=== PATIENT | female | born 1945 | race Caucasian/White ===

== ENCOUNTER 2024-06-30 14:17 | Outpatient (AMB) | payer OTHER, SELFPAY ==
--- NOTE | 2024-06-30 14:20 | A.OFFVIS_ITS ---
Vital Signs 06/30/24 14:24 Height 5 ft 5.5 in Weight 187 lb BMI 30.6 BP 168/75 H Blood Pressure Location Lt brachial Position Sitting Pulse 94 Pulse Source Pulse Oximeter Pulse Oximetry (%) 98 Oxygen Delivery Method Room Air Intake Visit Reasons: Spinal Stenosis Lumbar Region Intake Note: Pain today 12/14 Refractory Worker Required: No Accompanied by: Self / Same As Patient Allergies amoxicillin [AMOXICILLIN] Allergy (Unknown, Verified 06/30/24 14:25) RASH sumatriptan [From IMITREX] Allergy (Unknown, Verified 06/30/24 14:25) TINGLING/NUMBNESS clavulanic acid [From AUGMENTIN] Adverse Reaction (Unknown, Verified 06/30/24 14:25) NAUSEA & VOMITING hydrochlorothiazide [From Maxzide] Adverse Reaction (Unknown, Verified 06/30/24 14:25) NAUSEA & VOMITING sulfamethoxazole [From BACTRIM] Adverse Reaction (Unknown, Verified 06/30/24 14:25) NAUSEA & VOMITING triamterene [From Maxzide] Adverse Reaction (Unknown, Verified 06/30/24 14:25) NAUSEA & VOMITING trimethoprim [From BACTRIM] Adverse Reaction (Unknown, Verified 06/30/24 14:25) NAUSEA & VOMITING ENVIRONMENTAL Allergy (Unknown, Uncoded 01/22/20 16:00) RUNNY NOSE/STUFFINESS OCG DYE Allergy (Unknown, Uncoded 01/22/20 16:00) PASSED OUT HPI Comments Details: Shara is very pleasant 78 years old female who presents in my office by referral of [facility]. She requested 2nd opinion from her physician in [facility] and she came to see me today. She complains mostly on axial lower back pain without radiation into bilateral lower extremities. She reports stiffness of the lower back and she reports alleviation of her pain when she can not walk leaning on the shopping cart. She reports pain getting better when she is sitting or laying down. She is able to sleep normally. She can do activities of daily living. She can take care of herself. But she can not function normally. She is retired individual. She reports that standing and motions aggravate her pain. She denies any help from anything for her pain. In terms of tissue damage he reports her pain as jumping, flushing, shooting, sickening, suffocating, fearful fried full terrifying, punishing, killing, cool called and freezing sensation. She received multiple diagnostic images of her lumbar spine in the past the last MRI dictated as below. She received physical therapy in [facility] numerous times without significant improvement. She tries to remain active she performs walking exercises at home. She lives alone. Her past medical history significant for headaches, hypertension, history of episodic AFib currently only on aspirin 81 mg. She admits diabetes however she states it is diet controlled. She reports GERD and arthritis. Her past surgical history significant for tonsillectomy in 1973, hysterectomy in 1984, bunionectomy hammertoes in 1989, right knee replacement in 2002, left knee replacement in 2002, February of 2026 she received bladder sling surgery, hammertoe surgery in 01/24/2023, [facility] arthroplasty 01/24/2021. [facility] Social History (Updated 06/30/24 @ 14:26 by Asya Castro) Alcohol intake: never Patient Tobacco Use Status: Never used Tobacco Review of Systems Const Reports no additional complaints Eyes Reports no additional complaints ENT Reports Normal hearing present Card Reports as per HPI Resp Reports no additional complaints GI Reports as per HPI Reports no additional complaints Musc Reports as per HPI Neuro Reports no additional complaints, Reports Normal hearing present, Denies Abnormal speech present and Denies Sensory deficit (Neuro) Psych Reports no additional complaints Physical Exam Vital Signs: Last Vital Signs Pulse 94 06/30/24 14:24 BP 168/75 H 06/30/24 14:24 Pulse Ox 98 06/30/24 14:24 Oxygen Delivery Method Room Air 06/30/24 14:24 BMI result Body Mass Index 30.6 Const General: no acute distress Nutritional Appearance: well nourished Orientation/consciousness: patient oriented x3 Limitations: ambulation with cane Eyes General: appearance normal, both eyes and all related structures Pupils: Equal, round and reactive pupils present EOM: EOMs intact bilaterally Neck Neck: Yes full ROM Chest Chest palpation & inspection: normal inspection of the chest Resp Effort & Inspection: normal respiratory effort, able to speak in complete sentences, normal respiratory pattern, no audible wheezes and no cough Cardio Jugular venous distension: no JVD GI Inspection: Yes normal to inspection Back/Spine/Pelvis Other: No tenderness on palpation in paraspinal spinal region of the lumbar spine. Loading test is equivocal bilaterally. Remarkable range of motion with flexing forward. Able to reach the floor with her fingers. Flexing backwards is very difficult and the spine is very stiff on the flexing backwards maneuver. SLR is negative bilaterally. Lassegue test is negative bilaterally. Unable to perform Luiz test because of the stiff static knees. Pelvic compression test and pelvic distraction tests are negative for pain increase in the projection of sacroiliac joint. Able to stand on bilateral tiptoes without difficulty. Able to stand on bilateral heels without difficulty. Able to lift 1st toe in separation from the rest of the toes. Denies pelvic organ dysfunction. Valsalva maneuver is negative. Neuro General: patient oriented x3 and gait normal Cranial nerves: Yes CN's II-XII intact bilaterally, Yes Equal, round and reactive pupils present, Yes Normal hearing present and Yes Ability to bilaterally elevate shoulders present Speech: No Abnormal speech present Gait exam (Neuro): Normal gait present Motor exam (neuro): 5/5 motor strength present throughout Sensory Exam: No Sensory deficit (Neuro) Extrem General: No pedal edema Psych Speech and movement: Normal speech and movement present Affect: normal affect Attitude: cooperative Thought process: Normal thought process present Thought content: Normal thought content present Insight: Good insight present (Psych) Judgement: Good judgement present (Psych) Results Reviewed Results Reviewed: MRI lumbar spine without contrast 01/07/2023. Findings: Alignment and vertebral: Normal alignment no compression fracture. Marrow normal no bone marrow replacing lesion. Discs and endplates: Multilevel mild disc space narrowing. Other findings none findings by level: T12-L1 on bilateral facet arthropathy no significant neural foraminal or spinal canal stenosis. L1-L2: Bilateral facet arthropathy ligamentum flavum hypertrophy no significant neural foraminal or spinal canal stenosis. L2-L3: Diffuse disc bulge. Bilateral facet arthropathy. Marked ligamentum flavum thickening. There is associated [id number] spinal canal stenosis similar to minimally increased since 07/01/2020. Mild bilateral foraminal stenosis similar to prior. L3-L4: Diffuse disc bulge. Bilateral facet arthropathy. Prominent ligamentum flavum thickening similar to prior. Jryi-[id number] spinal canal stenosis similar to prior. No significant foraminal stenosis. L4-5: Diffuse disc bulge. Bilateral facet arthropathy. Prominent ligamentum flavum thickening. Mild spinal canal stenosis, similar to prior. Mild bilateral foraminal stenosis similar to prior. L5-S1 diffuse disc bulge. Bilateral facet arthropathy. Mild bilateral foraminal stenosis, similar to prior. No significant spinal canal stenosis. Impression: Lumbar spine degenerative changes as described. Overall similar to 07/01/2020 with associated [id number] spinal canal stenosis at L2-L3 and L3-L4 and similar degree to prominent ligamentum flavum thickening. No evidence of high-grade foraminal stenosis. Assessment & Plan Assessment & Plan (1) Spinal stenosis of lumbar region: Code(s): M48.061 - Spinal stenosis, lumbar region without neurogenic claudication Category: Medical (2) Chronic pain syndrome: Code(s): G89.4 - Chronic pain syndrome Category: Medical (3) Spondylosis of lumbar region without myelopathy or radiculopathy: Code(s): M47.816 - Spondylosis without myelopathy or radiculopathy, lumbar region Category: Medical Plan This patient reports alleviation of her pain with walking while flexing forward and leaning on the assisting device or shopping cart. However she does not report neurogenic claudication, she reports that she performs walking exercises at home and does not require stopping because of her pain. In [facility] she received epidural steroid injection L3-L4 interlaminar, she received sacroiliac joint innervation injection diagnostic, none of which she claim helps her pain. Today we discussed possibility of treating her condition with diagnostic medial branch block L3, L4, dorsal ramus L5. This could be major pain generators in this patient. The diagnosis for this condition will be spondylosis of lumbar spine without myelopathy or radiculopathy. If this diagnostic injection will result in no pain improvement we will start to discuss neuromodulation. Brochures of spinal cord stimulator Nevro and intrathecal pain pump were given to the patient. The patient also was explained about chronic opioid therapy. She lives alone and it would be hard to assess how she reacts to chronic opioid therapy. I careful trial of buprenorphine or tramadol would be preferable if she decides to go for chronic opioid therapy. Patient Instructions: I here by testify that I spent 48 minutes in conversation with this patient as well as planning her care and organizing this note. Coding Level of Care Code New Pt Level 4 (77385) Diagnoses Spinal stenosis of lumbar region M48.061 Chronic pain syndrome G89.4 Spondylosis of lumbar region without myelopathy or radiculopathy M47.816
[2024-06-30 14:24] VITALS: BP 168/75; PULSE 94; O2SAT 98; BMI 30.6
--- OUTSIDE RECORDS SUMMARY | 2024-06-30 16:26 | XMS_ITS | Patient Health Record ---
[facility] Address [address] [place] [address] Care Team Providers Care Door Person Name Role Phone Brandon POPE, Natividad Primary Care Provider Yohana Barton Unavailable [phone] Bud Helton Unavailable [phone] Jacqueline Voss Unavailable [phone] Allergies Allergen (clinical drug ingredient) Drug/Non Drug Allergy documented on EMR Reaction Allergy Type Onset Date Status amoxicillin Amoxicillin Unknown Drug Allergy Act nata amoxicillin / clavulanate Augmentin sick to stomach Drug Allergy Active sulfamethoxazole / trimethoprim Bactrim stomach upset Drug Allergy Active sumatriptan Imitrex numbness in arm Drug Allergy Active dexamethasone Maxidex sick to stomach Drug Allergy Active cyclosporine Restasis Unknown Drug Allergy Acti ve tramadol Tramadol HCl nausea and vomiting Drug Allergy Active banana allergenic extract Banana (Diagnostic) Unknown Drug Allergy Active codeine Codeine stomach upset Drug Allergy Act nata Iodine fainted Drug Allergy Active Results Component Value Reference Range Notes HEMOGLOBIN A1C (GLYCOHEMOGLO BIN) Reviewed date:04/29/2024 08:56:49 AM Interpretation: Performing Lab: Notes/Report: TOTAL HEMOGLOBIN (HGBA1C) 5.6 Reason For Referral Diagnosis 1 Pain in right toe(s) (M79.674) Diagnosis 2 Pain in left toe(s) (M79.675) Diagnosis 3 Type 2 diabetes shahriar itus with diabetic polyneuropathy (E11.42) Referring Provider First Name Natividad Referring Provider Last Name Brandon [facility] Referred Provider Bud Helton Referred Address [address] [facility],[place], [place],[address],[place] Referred Provider Specialty Podiatry Referral Priority Routine Diagnosis 1 Other hammer toe(s) (acquired), right foot (M20.41) Diagnosis 2 Primary osteoarthrit is, right ankle and foot (M19.071) Diagnosis 3 Idiopathic gout, 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) Diagnosis 4 Type 2 diabetes shahriar itus with diabetic polyneuropathy (E11.42) Diagnosis 5 Hammer toe of left f oot (M20.42) Referring Provider First Name Natividad Referring Provider Last Name Brandon [facility] Ref[facility] Provider Yohana Lane Referred Address [address] [facility],[place], [place],[address],[place] Referred Provider Specialty Podiatry Referral Priority Routine Diagnosis 1 Type 2 diabetes shahriar itus with diabetic polyneuropathy (E11.42) Diagnosis 2 Other hammer toe(s) (acquired), right foot (M20.41) Diagnosis 3 Other hammer toe(s) (acquired), left foot (M20.42) Diagnosis 4 Pain in right toe(s) (M79.674) Diagnosis 5 Pain in left toe(s) (M79.675) Diagnosis 6 Tinea unguium (B35.1 ) Diagnosis 7 Ingrowing nail (L60. 0) Diagnosis 8 Primary osteoarthrit is, right ankle and foot (M19.071) Diagnosis 9 Metatarsalgia, right foot (M77.41) Diagnosis 10 Metatarsalgia, left foot (M77.42) Diagnosis 11 Plantar fascial fibr omatosis (M72.2) Referring Provider First Name Natividad Referring Provider Last Name [facility] Referred Provider Jacqueline Voss Referred Address [address] [facility],[place], [place],[address],[place] Referred Provider Specialty Podiatry Referral Priority Routine Medications Medication SIG (Take, Route, Frequency, Duration) Notes Start Date End Date Status Xyzal Active Extra Depth Orthopedic Shoes (1 Pair) with Customized Heat Molded Multidensity Innersoles (3 Pair) as directed Dx: NIDDM/Polyneuropathy (E11.42), Hammertoe Foot Deformity (M20.41,M20.42), Preulcerative Skin Lesion(s) (L85.1 Active Voltaren 1 % as directed Externally Active Patanol Active VESIcare Not-Taking Calcium 500 MG every other day Orally Active Magnesium Chloride A ctive Custom Orthotics as directed 11/01/2015 Not-Taking Vitamin B Complex Ac tive Betamethasone Dipropionate Not-Taking Protonix 40 MG Orally Activ e Nabumetone Not-Takin g hydrochlorothiazide Active Custom Orthotics as directed A ctive Nikki Allergy Acti ve Extra Depth Diabetic Shoes with 3 Pair Custom heat-molded multi-density innersoles for 1 year Dx: 11/01/2015 Not-Taking Gemtesa 75 MG 1 tablet Orally Once a day for 30 day(s) Active Custom Orthotics as directed N ot-Taking Multivitamins Active Levothroid 100 mg 6x a week Ac tive Custom Orthotics as directed 06/30/2014 Not-Taking Metoprolol Succinate 50mg daily Active Fish Oil Active VESIcare 5 MG Orally Not-Ta dafne Flonase 50 MCG/ACT 1 spray in each nostril Nasally Once a day for 30 day(s) Active Myrbetriq 50 MG Orally Not- Taking Lisinopril 40 MG Orally Act nata Custom Orthotics as directed 06/17/2014 Not-Taking Glucosamine HCl 1500 MG Orally Active Colchicine-Probenecid Not-Taking Docusate Sodium Acti ve Doxycycline Monohydrate 100 MG 1 capsule Orally Twice a day for 5 days 01/31/2023 Not-Taking Doxycycline Hyclate 100 MG 1 capsule Ora lly Once a day for 10 day(s) 01/18/2023 Not-Taking Etodolac 400 MG 3 times day Orally Active Custom Orthotics as directed 08/09/2016 Not-Taking Estradiol Active Keflex 500 MG 1 capsule Orally every 12 hrs for 5 days 06/21/2022 Not-Taking Extra Depth Orthopedic Shoes (1 Pair) with Customized Heat Molded Multidensity Innersoles (3 Pair) as directed Dx: NIDDM/Polyneuropathy (E11.42), Hammertoe Foot Deformity (M20.41,M20.42), Preulcerative Skin Lesion(s) (L85.1 07/20/2021 Not-Taking Diclofenac Not-Takin g Etodolac Not-Taking Aspirin 81 MG Orally Active Atorvastatin Calcium Not-Taking Vitamin C Active Zomig Not-Taking Custom Orthotics as directed 07/20/2021 Active Extra-Depth Diabetic Shoes with 3 Pair Custom heat-molded multi-density innersoles Active Omeprazole Not-Takin g Immunizations Vaccine Route Administration Date Status Commreece nts COVID-19 Pfizer BioNTech Vaccine Unknown 02/13/2022 Administered 1st 06/26/2020 ,02/04/21 2nd 07/16/2020,2021 Influenza Unknown 02/11/2015 Administered Influenza Unknown 02/03/2016 Administered Influenza Unknown 02/05/2017 Administered Influenza Unknown 02/15/2018 Administered Influenza Unknown 02/13/2022 Administered Influenza Unknown 02/07/2023 Administered Pneumococcal Unknown 08/03/2015 Administered Social History Tobacco Use: Social History Observation Description Date Details (start date - stop date) Never Smoker NA - NA Tobacco Use/Smoking Question Answer Notes Are you a: nonsmoker Additional Findings: Tobacco Non-User Current no n-smoker Alcohol Screen Question Answer Notes Did you have a drink containing alcohol in the p ast year? No Points 0 Interpretation Negative Tobacco use other than smoking: Question Answer Notes Are you an other tobacco user? No Problems Problem Type SNOMED Code ICD Code Onset Dates Problem Status W/U Status Risk Notes Problem Acquired hammer toe of right foot (2936653219057732 ) Other hammer toe(s) (acquired), right foot (M20.41) Active confirmed Response to treatment, Improvemen t Problem Acquired hammer toe of left foot (0664009835873767 ) Other hammer toe(s) (acquired), left foot (M20.42) Active confirmed Response to treatment, Improvemen t Problem Localized, primary osteoarthritis of the ankle and/or foot (165850003) Primary osteoarthritis, right ankle and foot (M19.071) Active confirmed Problem Plantar fascial fibromatosis (53919713) Plantar fascial fibromatosis (M72.2) Active confirmed Problem Polyneuropathy due to type 2 diabetes mellitus (167282694) Type 2 diabetes mellitus with diabetic polyneuropathy (E11.42) Active confirmed Problem Localized, primary osteoarthritis of the ankle and/or foot (980933507) Arthritis of joint of lesser toe, right (M19.071) Active confirmed Vital Signs Blood pressure diastolic 72 mm Hg 06/25/2024 Height 5ft 5in in 06/25/2024 Blood pressure systolic 118 mm Hg 06/25/2024 Weight 182 lbs 06/25/2024 BMI 30.28 kg/m2 06/25/2024 Procedures Procedure Date Ordered Date Performed Result Body Sit e 53627-VROVMYM NAIL, 6 OR MORE 03/05/2024 N/A 03778-YZXI SKIN LESIONS, OVER 4 03/05/2024 N/A Encounters Encounter Location Date Provider Diagnosis [address] [address] 07/26/2023 Bud Norris unguium B35.1 ; Type 2 diabetes mellitus with diabetic polyneuropathy E11.42 ; Pain in right toe(s) M79.674 ; Pain in left toe(s) M79.675 ; Other hammer toe(s) (acquired), right foot M20.41 ; Primary osteoarthritis, right ankle and foot M19.071 ; Ingrowing nail L60.0 ; Metatarsalgia, left foot M77.42 ; Metatarsalgia, right foot M77.41 and Plantar fascial fibromatosis M72.[address] [address] 09/17/2023 Bud Helton Tinea unguium B35.1 ; Type 2 diabetes mellitus with diabetic polyneuropathy E11.42 ; Pain in right toe(s) M79.674 ; Pain in left toe(s) M79.675 ; Other hammer toe(s) (acquired), right foot M20.41 ; Primary osteoarthritis, right ankle and foot M19.071 ; Ingrowing nail L60.0 ; Metatarsalgia, left foot M77.42 ; Metatarsalgia, right foot M77.41 and Plantar fascial fibromatosis M72.[address] [address] 11/12/2023 Bud Helton Tinea unguium B35.1 ; Type 2 diabetes mellitus with diabetic polyneuropathy E11.42 ; Pain in right toe(s) M79.674 ; Pain in left toe(s) M79.675 ; Other hammer toe(s) (acquired), right foot M20.41 ; Primary osteoarthritis, right ankle and foot M19.071 ; Ingrowing nail L60.0 ; Metatarsalgia, left foot M77.42 ; Metatarsalgia, right foot M77.41 and Plantar fascial fibromatosis M72.[address] [address] 01/09/2024 Bud Helton Tinea unguium B35.1 ; Type 2 diabetes mellitus with diabetic polyneuropathy E11.42 ; Pain in right toe(s) M79.674 ; Pain in left toe(s) M79.675 ; Other hammer toe(s) (acquired), right foot M20.41 ; Primary osteoarthritis, right ankle and foot M19.071 ; Ingrowing nail L60.0 ; Metatarsalgia, left foot M77.42 ; Metatarsalgia, right foot M77.41 and Plantar fascial fibromatosis M72.[address] [address] 03/05/2024 Jacqueline Voss Type 2 diabetes mellitus with diabetic polyneuropathy E11.42 ; Tinea unguium B35.1 ; Other hammer toe(s) (acquired), right foot M20.41 and Other hammer toe(s) (acquired), left foot M20.[address] [address] 04/29/[address] Type 2 diabetes mellitus with diabetic polyneuropathy E11.42 ; Other hammer toe(s) (acquired), right foot M20.41 ; Tinea unguium B35.1 and Pain in right toe(s) M79.[address] [address] 06/25/[address] Type 2 diabetes mellitus with diabetic polyneuropathy E11.42 ; Other hammer toe(s) (acquired), right foot M20.41 and Tinea unguium B35.[address] [address] 07/26/2023 Bud Helton [address] [address] 06/26/[address] Assessments Encounter Date Diagnosis (ICD Code) Assessment Notes Treatment Notes Treatment Clinical Notes Section Notes 07/26/2023 Tinea unguium (ICD-10 - B35.1) 09/17/2023 Tinea unguium (ICD-10 - B35.1) 11/12/2023 Tinea unguium (ICD-10 - B35.1) 01/09/2024 Tinea unguium (ICD-10 - B35.1) 03/05/2024 Type 2 diabetes mellitus with diabetic polyneuropathy (ICD-10 - E11.42) 03/05/2024 Tinea unguium (ICD-10 - B35.1) 04/29/2024 Other hammer toe(s) (acquired), right foot (ICD-10 - M20.41) Response to treatment,Impro vement 04/29/2024 Type 2 diabetes mellitus with diabetic polyneuropathy (ICD-10 - E11.42) 06/25/2024 Type 2 diabetes mellitus with diabetic polyneuropathy (ICD-10 - E11.42) 06/25/2024 Tinea unguium (ICD-10 - B35.1) 01/09/2024 Type 2 diabetes mellitus with diabetic polyneuropathy (ICD-10 - E11.42) 03/05/2024 Other hammer toe(s) (acquired), right foot (ICD-10 - M20.41) Response to treatment,Impro vement 06/25/2024 Other hammer toe(s) (acquired), right foot (ICD-10 - M20.41) Response to treatment,Impro vement 04/29/2024 Tinea unguium (ICD-10 - B35.1) 09/17/2023 Type 2 diabetes mellitus with diabetic polyneuropathy (ICD-10 - E11.42) 11/12/2023 Type 2 diabetes mellitus with diabetic polyneuropathy (ICD-10 - E11.42) 07/26/2023 Type 2 diabetes mellitus with diabetic polyneuropathy (ICD-10 - E11.42) 07/26/2023 Pain in right toe(s) (ICD-10 - M79.674) 09/17/2023 Pain in right toe(s) (ICD-10 - M79.674) 01/09/2024 Pain in right toe(s) (ICD-10 - M79.674) 11/12/2023 Pain in right toe(s) (ICD-10 - M79.674) 04/29/2024 Pain in right toe(s) (ICD-10 - M79.674) 03/05/2024 Other hammer toe(s) (acquired), left foot (ICD-10 - M20.42) Response to treatment,Impro vement 11/12/2023 Pain in left toe(s) (ICD-10 - M79.675) 01/09/2024 Pain in left toe(s) (ICD-10 - M79.675) 09/17/2023 Pain in left toe(s) (ICD-10 - M79.675) 07/26/2023 Pain in left toe(s) (ICD-10 - M79.675) 07/26/2023 Other hammer toe(s) (acquired), right foot (ICD-10 - M20.41) 11/12/2023 Other hammer toe(s) (acquired), right foot (ICD-10 - M20.41) 09/17/2023 Other hammer toe(s) (acquired), right foot (ICD-10 - M20.41) 01/09/2024 Other hammer toe(s) (acquired), right foot (ICD-10 - M20.41) 11/12/2023 Primary osteoarthritis, right ankle and foot (ICD-10 - M19.071) 01/09/2024 Primary osteoarthritis, right ankle and foot (ICD-10 - M19.071) 07/26/2023 Primary osteoarthritis, right ankle and foot (ICD-10 - M19.071) 09/17/2023 Primary osteoarthritis, right ankle and foot (ICD-10 - M19.071) 07/26/2023 Ingrowing nail (ICD-10 - L60.0) 09/17/2023 Ingrowing nail (ICD-10 - L60.0) 11/12/2023 Ingrowing nail (ICD-10 - L60.0) 01/09/2024 Ingrowing nail (ICD-10 - L60.0) 01/09/2024 Metatarsalgia, left foot (ICD-10 - M77.42) 11/12/2023 Metatarsalgia, left foot (ICD-10 - M77.42) 09/17/2023 Metatarsalgia, left foot (ICD-10 - M77.42) 07/26/2023 Metatarsalgia, left foot (ICD-10 - M77.42) 07/26/2023 Metatarsalgia, right foot (ICD-10 - M77.41) 09/17/2023 Metatarsalgia, right foot (ICD-10 - M77.41) 01/09/2024 Metatarsalgia, right foot (ICD-10 - M77.41) 11/12/2023 Metatarsalgia, right foot (ICD-10 - M77.41) 11/12/2023 Plantar fascial fibromatosis (ICD-10 - M72.2) 01/09/2024 Plantar fascial fibromatosis (ICD-10 - M72.2) 09/17/2023 Plantar fascial fibromatosis (ICD-10 - M72.2) 07/26/2023 Plantar fascial fibromatosis (ICD-10 - M72.2) Plan Of Treatment Pending Test Test Name Order Date X ray : Foot, left 2V 01/01/2013 X ray : Foot, left 2V 01/13/2013 X ray : Foot, left 2V 01/23/2013 X ray : Foot, left 2V 02/06/2013 X ray : Foot, left 2V 02/13/2013 X ray : Foot, left 2V 03/17/2013 *Uric Acid, Serum 09/17/2017 *Sedimentation Rate-Westergren 8 X ray : Foot, left 3V 10/09/2022 X ray : Foot, left 3V 09/17/2017 X ray : Foot, right 3V 01/31/2017 X ray : Foot, right 3V 10/09/2022 X ray : Foot, right 3V 08/06/2012 93589-QNMJGGJ NAIL, 6 OR MORE 09/16/2012 14237-FIZRAOL NAIL, 6 OR MORE 05/20/2012 05503-ILAEOLN NAIL, 6 OR MORE 07/15/2012 12550-RONQAIH NAIL, 6 OR MORE 11/13/2012 34702-XZXBRGB NAIL, 6 OR MORE 02/15/2011 08688-DGCAQIX NAIL, 6 OR MORE 04/10/2011 19187-NXVDZLN NAIL, 6 OR MORE 06/05/2011 57636-HLYIWDP NAIL, 6 OR MORE 08/02/2011 76083-KCTWDRR NAIL, 6 OR MORE 09/27/2011 92203-WJLUMKM NAIL, 6 OR MORE 11/22/2011 14826-NDZNGDN NAIL, 6 OR MORE 01/15/2012 56772-DYZAPAN NAIL, 6 OR MORE 03/25/2012 29762-YEHOFQK NAIL, 6 OR MORE 05/12/2013 13395-STSKHGM NAIL, 6 OR MORE 07/03/2013 43381-DIGDWUR NAIL, 6 OR MORE 09/01/2013 95563-JBLCNVG NAIL, 6 OR MORE 11/06/2013 71929-RCZZYMG NAIL, 6 OR MORE 12/31/2013 11690-YPLFQHC NAIL, 6 OR MORE 02/25/2014 30523-LYXKFKD NAIL, 6 OR MORE 04/20/2014 13250-WEOENSM NAIL, 6 OR MORE 06/17/2014 02245-UGVRUPQ NAIL, 6 OR MORE 08/13/2014 21627-RPMISBZ NAIL, 6 OR MORE 10/07/2014 58202-ZYVRCJD NAIL, 6 OR MORE 11/30/2014 69525-NMZWOHN NAIL, 6 OR MORE 01/25/2015 59438-CLEMVYS NAIL, 6 OR MORE 03/22/2015 22468-XNQMPDS NAIL, 6 OR MORE 05/17/2015 64533-NDCGSYC NAIL, 6 OR MORE 07/12/2015 93872-TUSJBDK NAIL, 6 OR MORE 09/06/2015 46158-WAJQZPF NAIL, 6 OR MORE 03/04/2018 27920-ZLBBIRF NAIL, 6 OR MORE 11/12/2017 21459-CAAIDJH NAIL, 6 OR MORE 01/09/2018 83080-SIHSNLN NAIL, 6 OR MORE 03/05/2024 24053-PBHFCKR NAIL, 6 OR MORE 04/24/2018 69358-FHGNVRD NAIL, 6 OR MORE 03/26/2017 88585-GDYQZSZ NAIL, 6 OR MORE 12/06/2016 01911-KULEDTL NAIL, 6 OR MORE 03/17/2013 21340-ATJMITJ NAIL, 6 OR MORE 01/31/2017 24894-YZUJNMA NAIL, 6 OR MORE 07/23/2017 02316-KVWVATI NAIL, 6 OR MORE 05/30/2017 30439-OOWCGMW NAIL, 6 OR MORE 09/17/2017 50420-TUXADAM NAIL, 6 OR MORE 11/01/2015 34130-UOVUNPH NAIL, 6 OR MORE 12/29/2015 70685-DIOAKKX NAIL, 6 OR MORE 02/23/2016 25481-LDWQHQX NAIL, 6 OR MORE 04/19/2016 07795-THIGMCN NAIL, 6 OR MORE 06/14/2016 38200-VONFQCS NAIL, 6 OR MORE 08/09/2016 86448-IBQKBJU NAIL, 6 OR MORE 10/04/2016 17995-Vwxpxrqd Plate 01/27/2016 96740-Dnehdxdj Plate Each Additional 23600- Debride <25 sq cm 02/10/2016 91117- Debride <25 sq cm 11/02/2016 02183- Debride <25 sq cm 02/28/2013 72934-DUWR SKIN LESIONS, OVER 4 11/14/19 13 00991-SBQQ SKIN LESIONS, OVER 4 03/17/20 13 75948-WZZB SKIN LESIONS, OVER 4 07/16/19 13 34008-NSCT SKIN LESIONS, OVER 4 05/20/19 13 28341-LUHP SKIN LESIONS, OVER 4 09/17/19 13 53047-UYAQ SKIN LESIONS, OVER 4 03/25/20 12 99451-WCZQ SKIN LESIONS, OVER 4 01/15/20 12 66345-INTR SKIN LESIONS, OVER 4 11/22/19 12 33765-LOQU SKIN LESIONS, OVER 4 09/27/19 12 65976-JAMB SKIN LESIONS, OVER 4 08/02/19 12 76224-VLAD SKIN LESIONS, OVER 4 06/05/19 12 73085-JGTJ SKIN LESIONS, OVER 4 04/10/20 11 78157-SYRC SKIN LESIONS, OVER 4 02/16/20 11 09905-RPRN SKIN LESIONS, OVER 4 09/06/19 16 02492-WURO SKIN LESIONS, OVER 4 07/12/19 16 80880-MCIE SKIN LESIONS, OVER 4 05/17/19 16 91448-VZHT SKIN LESIONS, OVER 4 03/22/20 15 84120-FNLO SKIN LESIONS, OVER 4 01/26/20 15 75552-VTPF SKIN LESIONS, OVER 4 12/01/19 15 43772-NCYZ SKIN LESIONS, OVER 4 10/08/19 15 98920-DZRP SKIN LESIONS, OVER 4 08/14/19 15 84529-UBRG SKIN LESIONS, OVER 4 06/17/19 15 31427-IWYB SKIN LESIONS, OVER 4 04/20/20 14 99071-KQEA SKIN LESIONS, OVER 4 02/26/20 14 67244-FQKE SKIN LESIONS, OVER 4 01/01/20 14 46731-JYAG SKIN LESIONS, OVER 4 11/07/19 14 02141-IYRZ SKIN LESIONS, OVER 4 09/02/19 14 27188-TCGT SKIN LESIONS, OVER 4 07/03/19 14 42029-EXTW SKIN LESIONS, OVER 4 05/12/19 14 34510-YPBU SKIN LESIONS, OVER 4 12/07/19 17 50298-IGTF SKIN LESIONS, OVER 4 08/10/19 17 12393-GODG SKIN LESIONS, OVER 4 10/05/19 17 01187-KSSD SKIN LESIONS, OVER 4 06/14/19 17 84902-WTPO SKIN LESIONS, OVER 4 04/19/20 16 83835-DHPU SKIN LESIONS, OVER 4 02/23/20 16 24016-DDQR SKIN LESIONS, OVER 4 12/29/19 16 25137-FRNV SKIN LESIONS, OVER 4 11/01/19 16 56186-NCST SKIN LESIONS, OVER 4 11/13/19 18 92270-ZBKP SKIN LESIONS, OVER 4 09/18/19 18 99147-INGA SKIN LESIONS, OVER 4 07/24/19 18 54008-DNVX SKIN LESIONS, OVER 4 02/01/20 17 36256-NIRH SKIN LESIONS, OVER 4 05/30/19 18 93218-VEUD SKIN LESIONS, OVER 4 03/26/20 17 75268-KHWI SKIN LESIONS, OVER 4 06/17/19 19 87492-GQNS SKIN LESIONS, OVER 4 08/13/19 19 00201-JQWQ SKIN LESIONS, OVER 4 10/08/19 19 54622-HZKU SKIN LESIONS, OVER 4 12/05/19 19 53740-ETVJ SKIN LESIONS, OVER 4 01/28/20 19 85395-LIWA SKIN LESIONS, OVER 4 03/24/20 19 61040-RWLK SKIN LESIONS, OVER 4 05/21/19 20 77223-RDWV SKIN LESIONS, OVER 4 07/14/19 20 73479-GLYG SKIN LESIONS, OVER 4 09/08/19 20 50071-ZLNX SKIN LESIONS, OVER 4 11/03/19 20 74326-INBL SKIN LESIONS, OVER 4 12/29/19 20 18341-SYUF SKIN LESIONS, OVER 4 02/23/20 20 57460-CPSO SKIN LESIONS, OVER 4 04/19/20 20 31370-KNYZ SKIN LESIONS, OVER 4 06/14/19 21 72428-KPTH SKIN LESIONS, OVER 4 08/10/19 21 48656-JEDM SKIN LESIONS, OVER 4 10/07/19 21 70653-BCTB SKIN LESIONS, OVER 4 11/30/19 21 35670-SZYR SKIN LESIONS, OVER 4 01/25/20 21 12689-GQFR SKIN LESIONS, OVER 4 03/23/20 21 85530-WBDH SKIN LESIONS, OVER 4 05/16/19 22 12258-CEEH SKIN LESIONS, OVER 4 07/21/19 22 59714-KYED SKIN LESIONS, OVER 4 03/05/20 24 33272-YLAG SKIN LESIONS, OVER 4 03/04/20 18 11282-ANTQ SKIN LESIONS, OVER 4 01/10/20 18 63991-SMLH SKIN LESIONS, OVER 4 04/24/20 18 73562-Xoxmafpss, Toes 08/06/2012 Next Appt Details Provider Name:Yohana camp, 08/20/2024 09:00:00 AM, [address] [place] [address], [phone], Provider Name:Yohana camp, 10/17/2024 10:00:00 AM, [address] [place] [address], [phone], Insurance Providers Payer Name Payer Address Payer Phone Subscriber Number Group Number Insured Name Patient Relationship to Insured Coverage Start Date Coverage End Date [facility] [address] [place] [phone] [id number] Shara Gerber Self - patient is the insured Medical (General) History Medical History History ICD Code stroke reflux psoriasis/eczema joint implants/screws hypertension heart disease osteoarthritis type II diabetes covid-19 Surgical History Surgery Date(Month/Year) cholecystectomy 2006 left knee replacement 2002 right knee replacement 2002 nose 2007 epidural injection in neck 2012 hammertoe left foot 2nd toe 01/09/2013 cyst removed from left index finger 05/22 cyst removed from left thumb 01/2015 Colonoscopy 10/30/2016 Endiscopy 10/30/2016 [facility] arthoplasty 01/14/21 Hospitalization History Reason Date(Month/Year) [facility]- [facility] 10/16/2019 Injection in SI joint- [facility] 11/26/2018 Patient admitted to [facility] for dizz y spells. 04/22/2014
--- OUTSIDE RECORDS SUMMARY | 2024-06-30 16:26 | XMS_ITS ---
[facility] Organization [facility] Address [address] [place] [address] Care Team Providers Care Traffic Manager Name Role Phone Brandon POEP, Natividad Primary Care Provider Yohana Barton Unavailable [phone] Allergies Allergen (clinical drug ingredient) Drug/Non Drug [...] Act nata Iodine fainted Drug Allergy Active REASON FOR VISIT At Risk Footcare, Toe Irritation, Painful Toe(s) Medications Medication SIG (Take, Route, Frequency, Duration) Notes Start Date End Date Status Omeprazole Not-Takin g Atorvastatin Calcium Not-Taking Zomig Not-Taking Betamethasone Dipropionate Not-Taking Nabumetone Not-Takin g Custom Orthotics as directed 11/01/2015 Not-Taking Extra Depth Diabetic Shoes with 3 Pair Custom heat-molded multi-density innersoles for 1 year Dx: 11/01/2015 Not-Taking Custom Orthotics as directed N ot-Taking Custom Orthotics as directed 06/30/2014 Not-Taking VESIcare Not-Taking Custom Orthotics as directed 06/17/2014 Not-Taking Colchicine-Probenecid Not-Taking VESIcare 5 MG Orally Not-Ta dafne Myrbetriq 50 MG Orally Not- Taking Custom Orthotics as directed 08/09/2016 Not-Taking Doxycycline Hyclate 100 MG 1 capsule Ora lly Once a day for 10 day(s) 01/18/2023 Not-Taking Extra Depth Orthopedic Shoes (1 Pair) with Customized Heat Molded Multidensity Innersoles (3 Pair) as directed Dx: NIDDM/Polyneuropathy (E11.42), Hammertoe Foot Deformity (M20.41,M20.42), Preulcerative Skin Lesion(s) (L85.1 07/20/2021 Not-Taking Custom Orthotics as directed 07/20/2021 Active Keflex 500 MG 1 capsule Orally every 12 hrs for 5 days 06/21/2022 Not-Taking Doxycycline Monohydrate 100 MG 1 capsule Orally Twice a day for 5 days 01/31/2023 Not-Taking Extra-Depth Diabetic Shoes with 3 Pair Custom heat-molded multi-density innersoles Active Aspirin 81 MG Orally Active Vitamin C Active Vitamin B Complex Ac tive Protonix 40 MG Orally Activ e Patanol Active Magnesium Chloride A ctive Metoprolol Succinate 50mg daily Active Multivitamins Active Levothroid 100 mg 6x a week Ac tive Flonase 50 MCG/ACT 1 spray in each nostril Nasally Once a day for 30 day(s) Active Etodolac 400 MG 3 times day Orally Active Lisinopril 40 MG Orally Act nata Glucosamine HCl 1500 MG Orally Active Fish Oil Active Estradiol Active Docusate Sodium Acti ve Calcium 500 MG every other day Orally Active Nikki Allergy Acti ve Gemtesa 75 MG 1 tablet Orally Once a day for 30 day(s) Active Diclofenac Not-Takin g hydrochlorothiazide Active Custom Orthotics as directed A ctive Extra Depth Orthopedic Shoes (1 Pair) with Customized Heat Molded Multidensity Innersoles (3 Pair) as directed Dx: NIDDM/Polyneuropathy (E11.42), Hammertoe Foot Deformity (M20.41,M20.42), Preulcerative Skin Lesion(s) (L85.1 Active Voltaren 1 % as directed Externally Active Xyzal Active Etodolac Not-Taking Social History Tobacco Use: Social History Observation [...] Problem Status W/U Status Risk Notes Problem Localized, primary osteoarthritis of the ankle and/or foot (500758612) Arthritis of joint of lesser toe, right (M19.071) Active confirmed Vital Signs Height 5ft 5in in 04/29/2024 Weight 182 lbs 04/29/2024 BMI 30.28 kg/m2 04/29/2024 Blood pressure systolic 116 mm Hg 04/29/20 Blood pressure diastolic 72 mm Hg 024 Encounters Encounter Location Date Provider Diagnosis [facility] [address] [address] 04/29/[address] Type 2 diabetes mellitus with diabetic polyneuropathy E11.42 ; Other hammer toe(s) (acquired), right foot M20.41 ; Tinea unguium B35.1 and Pain in right toe(s) M79.674 Assessments Encounter Date Diagnosis (ICD Code) Assessment Notes Treatment Notes Treatment Clinical Notes Section Notes 04/29/2024 Type 2 diabetes mellitus with diabetic polyneuropathy (ICD-10 - E11.42) 04/29/2024 Other hammer toe(s) (acquired), right foot (ICD-10 - M20.41) Response to treatment,Impro vement 04/29/2024 Tinea unguium (ICD-10 - B35.1) 04/29/2024 Pain in right toe(s) (ICD-10 - M79.674) Plan Of Treatment Next Appt Details Follow Up: 8 Weeks, Reason: Provider Name:Yohana camp, 08/20/2024 09:00:00 AM, [address] [place] [address], [phone], Provider Name:Yohana camp, 10/17/2024 10:00:00 AM, [address] [place] [address], [phone], Procedure Notes * Category Sub-Category Detail Notes Debride Nail 6-10 Nail debridement Due to the cl inical pathology outlined in the exam findings, performance of this nail treatment is medically necessary as its management by an unskilled/untrained nonprofessional would put this patients foot and overall health at risk. Therefore, debridement to affected nail(s), as described in exam ( TA, T1, T2, T3, T4, T5, T6, T7, T8, T9, ), was performed exclusively by the physician of record to reduce/remove overall nail length, girth, thickness, subungual debris, and necrotic tissue, by manual and/or electrical means through the use of a nail nipper and/or dremel-type surface grinder, to a more viable healthy nail plate or bed tissue 6-10 nails in total. Silver nitrate was used for any petechial bleeding as necessary. Definitive antifungal treatment options, both pharmaceutical and surgical, have been reviewed and discussed with the patient. The patient solely prefers the use of intermittent/as needed professional debridement services for their nail condition and understands the need for additional periodic treatments to maintain effectiveness in symptomatic relief - 32441 Keratoma Treatment Parring or Cutting o f Benign Hyperkeratotic Lesion(s) (-57) More than 4 Lesions - Due to the at risk nature of the patients medical condition as documented in the exam findings, performance of this keratoderma treatment is medically necessary as its management by an unskilled/untrained nonprofessional would put this patients foot and overall health at risk. Therefore, the benign hyperkeratotic lesions, ( 9) in total, locations as stated and described in the exam ( T1, T2, T6, T7, SUB MTH (s), 2, 3, B/L , 5, Left), were pared, and/or cut utilizing a sterile 15 blade, tissue nippers, and/or power dremel instrumentation by the physician of record - [id number] Progress Notes * Shara GERBER TDOB:[birth year] (78 yo F)Acc No.[id number]:04/29/2024 Progress Notes Patient:?Shara GERBER Provider:?Yohana Lane DPM :1945???Age:78 Y???Sex:Female D ate:04/29/2024 Address:[address] [place] [address], [phone] Pcp:Natividad Taylor MD Subjective: * Chief Complaints: * ???At Risk FootcareToe Irrit ationPainful Toe(s) * HPI: ???At Risk footcare:?Pt States Last PCP Visit:?Date?04/17/2024 ???Toe pain:?Nature:?tenderness.?Location:?Right foot, Tip, 3rd toe.?Course:?worse.?Aggravated by:?any pressure, shoes.?Treatments:?Rx shoes, , bracing/splinting/padding, previous flexor tenotomy.? * ROS:?General/Constitutional:?Nausea?denies.?Vomiting?denies.?Hunger Thirst?denies.?Loss appetite?denies.?Chills?denies.?Fatigue?denies.?Fever?denies.?Night Sweats?denies.?Unexplained weight loss?denies.?Unexplained weight gain?denies.?HEENTM:?Dentures?denies.?Dizziness?denies.?Glasses/contacts?admits.?Retinopathy?den ies.?Blurred/double vision?denies.?TMJ?denies.?Discharge/drainage?denies.?Implants?denies.?Sore throat?denies.?Dental implants?denies.?Hard of hearing ?denies.?Difficulty chewing/swallowing/speaking?denies.?Nose bleeds?denies.?Sore mouth?denies.?Respiratory:?On O xygen?denies.?Pneumonia/pleurisy?denies.?Bronchitis?denies.?Emphysema?denies.?Co ughing?denies.?Cough blood?denies.?Shortness of breath?denies.?Wheezing?denies.?Cardiovascular:?Pacemaker?denies.?MVP?denies.?WPW?denies.?CHF?denies.?Heart attack?denies.?Septal defect?denies.?Rapid beat?denies.?Chest pain ?denies.?Atrial Fib.?denies.?Murmur/Palpitations?denies.?Gastrointestinal:?Hemorrhoids?denies.?Stomach/Abdominal pain?denies.?Dark blood stool?denies.?Irritable bowel ?denies.?Constipation?denies.?Diarrhea?denies.?Hematology:?Swelling?denies.?Clots?denies.?Varicose Veins?denies.?Bruising?denies.?Bleeding problem?denies.?Genitourinary:?Blood urine?denies.?Frequent/Painfu/urination/bladder control?denies.?Kidney stones?denies.?Infection (UTI)?denies.?Nephropathy?denies.?sex trans dis (STD)?denies.?Prostate?denies.?Musculoskeletal:?Hammertoes?denies.?Bunions?denies.?Back Pain?denies.?Muscle Cramps/ Resting?denies.?Muscle cramps / walking?denies.?Generalized aches and pains?denies.?Weakness?denies.?Integ.:?García?denies.?Scars?denies.?Corns/calluses?admits.?Ingrown nails?admits.?Painful nails?admits.?Open Sores?denies.?Rashes?denies.?Neurologic:?Difficulty sleeping?denies.?Brain disorder?denies.?Numbness?denies.?Balance t rouble?denies.?Confusion?denies.?Fainting/blackouts?denies.?Tingling?denies.?Jaswinder mors?denies.? * Medical History:? * Surgical History:?cholecyste ctomy 2006left knee replacement 2003right knee replacement 2003nose 2008epidural injection in neck 2013hammertoe left foot 2nd toe 01/09/2013cyst removed from left index finger 05/22/2013cyst removed from left thumb 01/2015Colonoscopy 10/30/2016Endiscopy 10/30/2016[facility] arthoplasty 01/14/21 * Hospitalization/Major Diagno stic Procedure:?Patient admitted to [facility] for dizzy spells. 04/22/2014Injection in SI joint- [facility] 11/26/2018[facility]- [facility] 10/16/2019 * Family History:?Mother: dece ased, diagnosed with Unspecified cerebral artery occlusion with cerebral infarction, Family history of arthritis, Unspecified essential hypertension.?Father: , foot problems, diagnosed with Diabetic - NIDDM, Unspecified heart disease.?1 son(s) , 1 daughter(s) . .? * Social History:?Tobacco Use:?Tobacco Use/Smoking?Are you a:?nonsmoker ?Additional Findings: Tobacco Non-User?Current non-smoker ?Tobacco use other than smoking?Are you an other tobacco user??No ???Drugs/Alcohol:?Drugs?Have you used drugs other than those for medical reasons in the past 12 months??No ?Alcohol Screen?Did you have a drink containing alcohol in the past year??No ?Points?0 ?Interpretation?Negative ???Miscellaneous:?Caffeine: no, none. ?Children: yes, 2. ?Exercise: yes, walking programs, weights, housework. ?Marital status: . ?Occupation: Retired-[employer]. * Medications:?TakingXyzal Vol boris 1 % Gel as directed Externally Extra Depth Orthopedic Shoes (1 Pair) with Customized Heat Molded Multidensity Innersoles (3 Pair) as directed Dx: NIDDM/Polyneuropathy (E11.42), Hammertoe Foot Deformity (M20.41,M20.42), Preulcerative Skin Lesion(s) (L85.1 Custom Orthotics as directed hydrochlorothiazide Gemtesa 75 MG Tablet 1 tablet Orally Once a day Nikki Allergy Calcium 500 MG Tablet every other day Orally Docusate Sodium Estradiol Etodolac 400 MG Tablet 3 times day Orally Flonase 50 MCG/ACT Suspension 1 spray in each nostril Nasally Once a day Fish Oil Glucosamine HCl 1500 MG Tablet Orally Lisinopril 40 MG Tablet Orally Levothroid 100 mg 6x a week Multivitamins Metoprolol Succinate 50mg daily Magnesium Chloride Patanol Protonix 40 MG Tablet Delayed Release Orally Vitamin B Complex Vitamin C Aspirin 81 MG Tablet Chewable Orally Extra-Depth Diabetic Shoes with 3 Pair Custom heat-molded multi-density innersoles Custom Orthotics as directed Taking Xyzal Taking Voltaren 1 % Gel as directed Externally Taking Extra Depth Orthopedic Shoes (1 Pair) with Customized Heat Molded Multidensity Innersoles (3 Pair) as directed Dx: NIDDM/Polyneuropathy (E11.42), Hammertoe Foot Deformity (M20.41,M20.42), Preulcerative Skin Lesion(s) (L85.1 Taking Custom Orthotics as directed Taking hydrochlorothiazide Taking Gemtesa 75 MG Tablet 1 tablet Orally Once a day Taking Nikki Allergy Taking Calcium 500 MG Tablet every other day Orally Taking Docusate Sodium Taking Estradiol Taking Etodolac 400 MG Tablet 3 times day Orally Taking Flonase 50 MCG/ACT Suspension 1 spray in each nostril Nasally Once a day Taking Fish Oil Taking Glucosamine HCl 1500 MG Tablet Orally Taking Lisinopril 40 MG Tablet Orally Taking Levothroid 100 mg 6x a week Taking Multivitamins Taking Metoprolol Succinate 50mg daily Taking Magnesium Chloride Taking Patanol Taking Protonix 40 MG Tablet Delayed Release Orally Taking Vitamin B Complex Taking Vitamin C Taking Aspirin 81 MG Tablet Chewable Orally Taking Extra-Depth Diabetic Shoes with 3 Pair Custom heat-molded multi-density innersoles Taking Custom Orthotics as directed Not-Taking/PRNEtodolac Diclofenac Extra Depth Orthopedic Shoes (1 Pair) with Customized Heat Molded Multidensity Innersoles (3 Pair) as directed Dx: NIDDM/Polyneuropathy (E11.42), Hammertoe Foot Deformity (M20.41,M20.42), Preulcerative Skin Lesion(s) (L85.1 Doxycycline Hyclate 100 MG Capsule 1 capsule Orally Once a day Doxycycline Monohydrate 100 MG Capsule 1 capsule Orally Twice a day Keflex 500 MG Capsule 1 capsule Orally every 12 hrs Custom Orthotics as directed Myrbetriq 50 MG Tablet Extended Release 24 Hour Orally VESIcare 5 MG Tablet Orally Colchicine-Probenecid Custom Orthotics as directed Custom Orthotics as directed Custom Orthotics as directed Extra Depth Diabetic Shoes with 3 Pair Custom heat-molded multi-density innersoles for 1 year Dx: Custom Orthotics as directed VESIcare Nabumetone Betamethasone Dipropionate Zomig Atorvastatin Calcium Omeprazole Medication List reviewed and reconciled with the patientNot-Taking/PRN Etodolac Not-Taking/PRN Diclofenac Not-Taking/PRN Extra Depth Orthopedic Shoes (1 Pair) with Customized Heat Molded Multidensity Innersoles (3 Pair) as directed Dx: NIDDM/Polyneuropathy (E11.42), Hammertoe Foot Deformity (M20.41,M20.42), Preulcerative Skin Lesion(s) (L85.1 Not-Taking/PRN Doxycycline Hyclate 100 MG Capsule 1 capsule Orally Once a day Not-Taking/PRN Doxycycline Monohydrate 100 MG Capsule 1 capsule Orally Twice a day Not-Taking/PRN Keflex 500 MG Capsule 1 capsule Orally every 12 hrs Not-Taking/PRN Custom Orthotics as directed Not-Taking/PRN Myrbetriq 50 MG Tablet Extended Release 24 Hour Orally Not-Taking/PRN VESIcare 5 MG Tablet Orally Not-Taking/PRN Colchicine-Probenecid Not-Taking/PRN Custom Orthotics as directed Not-Taking/PRN Custom Orthotics as directed Not-Taking/PRN Custom Orthotics as directed Not-Taking/PRN Extra Depth Diabetic Shoes with 3 Pair Custom heat- molded multi-density innersoles for 1 year Dx: Not-Taking/PRN Custom Orthotics as directed Not-Taking/PRN VESIcare Not-Taking/PRN Nabumetone Not-Taking/PRN Betamethasone Dipropionate Not-Taking/PRN Zomig Not-Taking/PRN Atorvastatin Calcium Not- Taking/PRN Omeprazole Medication List reviewed and reconciled with the patient * Allergies:?Augmentin: sick t o stomachImitrex: numbness in armMaxidex: sick to stomachAmoxicillinBactrim: stomach upsetBanana (Diagnostic)Tramadol HCl: nausea and vomitingCodeine: stomach upsetIodine: faintedRestasis: Side Effectsyes[Allergies Verified] Objective: * Vitals:?Ht: 5ft 5in, Wt: 182 , BMI: 30.28, Shoe size: 9.5, BP: 116/72 mm Hg, BS: not taken, Ht-cm: 165.1 cm, Wt-k.55 kg. * ???Past Orders: ???Lab:HEMOGLOBIN A1C (GLYCO HEMOGLOBIN) (Order Date - 04/17/2024) (Collection Date & Time - 04/17/2024 08:56 AM) ? Value Reference Range ?TOTAL HEMOGLOBIN (HGBA1C) 5.6 * Examination: ???Ophthalmology Referral: ?DIABETES EYE EXAM?Neurological: ?SENSORY:?Neurological exam demonstrates reduced sharp/dull pin prick discrimination reduced light touch sensation reduced vibration sensation reduced proprioception sensation in a stocking fashion 5.07 monofilament test performed at plantar aspects of 5 varied sites per foot shows sensation plantar aspects absent at Forefoot B/L.?Nails: ?NAILS are:?Elongated, overgrown, dystrophic, lytic, greater than 3mm thick, discolored and friable with crumbly malodorous subungual debris, TA, T1, T2, T3, T4, T5, T6, T7, T8, T9.?Dermatologic: ?SKIN FINDINGS:?Skin exam reveals keratotic lesion(s) located at, T1, T2, T6, T7, SUB MTH (s), 2, 3, B/L , 5, Left.?Vascular: ?DP PULSES (B):?2/4, B/L.?PT PULSES (B):?2/4, B/L.?CAPILLARY FILL TIME:?immediate, all digits, B/L.?TROPHIC CONDITION-TEXTURE/ELASTICITY/TURGOR/HAIR GROWTH (B):?normal, B/L.?TEMPERTURE GRADIENT (C):?normal, warm to cool, proximal to distal, B/L, B/L.?PIGMENTATION:?normal, B/L.?Orthopedic: ?MUSCLE STRENGTH:?5/5 all groups in a symmetrical fashion, B/L.?DIGITAL DEFORMITIES:?Digital contracture, PIPJ, 4-5 right, incompl- reducible with WB, or to push-up test, no over, nor underlapping, Reveals bulbous distal digit with inflammation and Pain on Palpation T7.?FOOTWEAR:?good condition, exhibit proper fit and accommodation for pedal deformities. OT were inspected and noted to be worn, but in good condition giving proper support at the present time , shoe gear properties exacerbate patients foot/toe deformity.?General Examination: ?GENERAL APPEARANCE:?Reveals a pleasant, alert, well nourished, well- developed, well hydrated individual, who demonstrates proper attention to hygiene/body habitus, and is in no acute distress, Pt serves as own historian for office visit today.?ORIENTED:?person, place, and time.?FOOT EXAM:? Assessment: * Assessment: 1.?Other hammer toe(s) (acqu ired), right foot - M20.41 (Primary)???Specify :Chronic problem, Stable (1=3,2=4)???Notes :Response to treatment,Improvement???2.?Type 2 diabetes mellitus with diabetic polyneuropathy - E11.42???3.?Tinea unguium - B35.1???4.?Pain in right toe(s) - M79.674??? Plan: * Treatment: * Procedures:?Debride Nail 6-10:?Nail debridement?Due to the clinical pathology outlined in the exam findings, performance of this nail treatment is medically necessary as its management by an unskilled/untrained nonprofessional would put this patients foot and overall health at risk. Therefore, debridement to affected nail(s), as described in exam ( TA, T1, T2, T3, T4, T5, T6, T7, T8, T9, ), was performed exclusively by the physician of record to reduce/remove overall nail length, girth, thickness, subungual debris, and necrotic tissue, by manual and/or electrical means through the use of a nail nipper and/or dremel-type surface grinder, to a more viable healthy nail plate or bed tissue 6- 10 nails in total. Silver nitrate was used for any petechial bleeding as necessary. Definitive antifungal treatment options, both pharmaceutical and surgical, have been reviewed and discussed with the patient. The patient solely prefers the use of intermittent/as needed professional debridement services for their nail condition and understands the need for additional periodic treatments to maintain effectiveness in symptomatic relief - [id number].?Keratoma Treatment:?Parring or Cutting of Benign Hyperkeratotic Lesion(s)?(-57) More than 4 Lesions - Due to the at risk nature of the patients medical condition as documented in the exam findings, performance of this keratoderma treatment is medically necessary as its management by an unskilled/untrained nonprofessional would put this patients foot and overall health at risk. Therefore, the benign hyperkeratotic lesions, ( 9) in total, locations as stated and described in the exam (?T1,?T2,?T6,?T7,?SUB MTH (s),?2,?3,?B/L?,?5,?Left), were pared, and/or cut utilizing a sterile 15 blade, tissue nippers, and/or power dremel instrumentation by the physician of record - 48493.? * Procedure Codes:?54478 DEBRI DE NAIL, 6 OR MORE, Modifiers: XS 22702 TRIM SKIN LESIONS, OVER 4, Modifiers: XS * Preventive Medicine:? ??Counseling:?Discussion:?-13: Office or other outpatient visit for the evaluation and management of an established patient, which required a medically appropriate history and/or examination and LOW level of DECISION MAKING for: 1 STABLE ACUTE UNCOMPLICATED PROBLEM, 2 OR MORE MINOR PROBLEMS, OR 1 STABLE CHRONIC PROBLEM, THAT POSE(S) A LOW RISK FOR MORBIDITY/MORTALITY. The visit on the day of the encounter encompassed interpreting the data and educating the patient as to the nature of their condition, treatment options available according to their individual PMH, meds, allergies, and overall health/living conditions, as well as any potential risks or complications that may occur from a failure to adhere to, and participate in, the recommended course of therapy. The discussion included a complete verbal, and/or written explanation of the examination results, any x-rays taken, the proposed diagnosis, and outline of the treatment plan. A schedule for future care needs was also explained. The patient verbalized an understanding of the instructions at this time and agreed to be an active participant in their treatment. If the patient should think of any questions or concerns after the visit, I have encouraged the patient to call the office.?Digital Treatment:?HT- I explained to the patient the possible etiologies of Hammertoes, including genetics/foot type/shoegear/activity level/exercise routine and the risks/benefits of all the different treatment options for their pain including: No treatment at all, Rest, Ice, New/supportive/wider/deeper Shoe gear, Digital Padding/Strapping/Taping/Bracing/Gel protective sleeves, Foot/Ankle AFO Bracing, Stretching exercises, Deep Tissue Massage, Arch support/shoe inserts with splay metatarsal padding, and Custom orthoses. I insisted that any digital devices be removed daily and not worn overnight for safety. The patient is to carefully examine the toes daily for any skin irritation while using any splinting or padding device. The advantages and disadvantages of each option were discussed and the patients questions re: shoe gear, padding, custom vs prefabricated inserts, activity level, and consistency in home treatment regimens for optimal success were answered to their verbally confirmed satisfaction.? ??Screening/Special Tests:?Fall Risk?Assessment:?Performed ?Screening:?No falls in the past year ?FALLS: Screening for Future Fall Risk?Have you had two or more falls in the past year??No ?Have you had any falls with injury in the past year??No * Follow Up:?8 Weeks * Images: * Sign off status: Completed true * Provider:?Yohana Lane, DPM Date:? Generated for Isai leonard/Jaime/Cecilia on:?06/30/2024 04:26 PM EST History and Physical Notes * HPI (History of Present Illness) Category Sub-Category Detail Notes Category Not es Toe pain Nature: tenderness Location: Right foot, Tip, 3rd toe Course: worse Aggravated by: any pressure, shoes Treatments: Rx shoes, , bracing/ splinting/padding, previous flexor tenotomy At Risk footcare Pt States Last PCP Visit: Date: 4 Examination Category Sub-Category Detail Notes Category Not es Neurological SENSORY: Neurological exa m demonstrates reduced sharp/dull pin prick discrimination reduced light touch sensation reduced vibration sensation reduced proprioception sensation in a stocking fashion 5.07 monofilament test performed at plantar aspects of 5 varied sites per foot shows sensation plantar aspects absent at Forefoot B/L Dermatologic SKIN FINDINGS: Skin exam reveal s keratotic lesion(s) located at, T1, T2, T6, T7, SUB MTH (s), 2, 3, B/L , 5, Left Orthopedic FOOTWEAR: good condition, exhibit proper fit and accommodation for pedal deformities. OT were inspected and noted to be worn, but in good condition giving proper support at the present time , shoe gear properties exacerbate patients foot/toe deformity DIGITAL DEFORMITIES: Digital contracture , PIPJ, 4-5 right, incompl-reducible with WB, or to push-up test, no over, nor underlapping, Reveals bulbous distal digit with inflammation and Pain on Palpation T7 MUSCLE STRENGTH: 5/5 all groups in a symmetrical fashion, B/L General Examination GENERAL APPEARANCE: Reveals a pleasant, alert, well nourished, well-developed, well hydrated individual, who demonstrates proper attention to hygiene/body habitus, and is in no acute distress, Pt serves as own historian for office visit today FOOT EXAM: Lower Extremity Neurological Exa m performed:: Yes Visual exam of foot performed:: Yes Date: 04/29/2024 Sensory testing performed:: sensations d iminished ORIENTED: person, place, and t shonda Ophthalmology Referral DIABETES EYE EXAM Procedure Perform ed:: Yes ?Date of Exam Performed: 09/05/2023 Findings of Diabetic Eye Exam:: no retin opathy Vascular DP PULSES (B): 2/4, B/L PT PULSES (B): 2/4, B/L CAPILLARY FILL TIME: immediate, all digi ts, B/L TEMPERTURE GRADIENT (C): normal, warm to cool, proximal to distal, B/L, B/L TROPHIC CONDITION-TEXTURE/ELASTICITY/TURGOR/HAIR GROWTH (B): normal, B/L PIGMENTATION: normal, B/L Nails NAILS are: Elongated, overg rown, dystrophic, lytic, greater than 3mm thick, discolored and friable with crumbly malodorous subungual debris, TA, T1, T2, T3, T4, T5, T6, T7, T8, T9
--- OUTSIDE RECORDS SUMMARY | 2024-06-30 16:27 | XMS_ITS ---
[facility] Address [address] [place] [address] Care Team Providers Care Bolt Machine Operator Name Role Phone Brandon POPE, Natividad Primary Care Provider Yohana Barton Unavailable [phone] Allergies Allergen (clinical drug ingredient) Drug/Non Drug [...] REASON FOR VISIT At Risk Footcare, Toe Irritation Medications Medication SIG (Take, Route, Frequency, Duration) Notes Start Date End Date Status Atorvastatin Calcium Not-Taking Zomig Not-Taking Omeprazole Not-Takin g Betamethasone Dipropionate Not-Taking Nabumetone Not-Takin g Custom Orthotics as directed 06/30/2014 Not-Taking VESIcare Not-Taking Custom Orthotics as directed 11/01/2015 Not-Taking Extra Depth Diabetic Shoes with 3 Pair Custom heat-molded multi-density innersoles for 1 year Dx: 11/01/2015 Not-Taking Custom Orthotics as directed N ot-Taking VESIcare 5 MG Orally Not-Ta dafne Myrbetriq 50 MG Orally Not- Taking Custom Orthotics as directed 06/17/2014 Not-Taking Colchicine-Probenecid Not-Taking Custom Orthotics as directed 08/09/2016 Not-Taking Diclofenac Not-Takin g Doxycycline Monohydrate 100 MG 1 capsule Orally Twice a day for 5 days 01/31/2023 Not-Taking Doxycycline Hyclate 100 MG 1 capsule Ora lly Once a day for 10 day(s) 01/18/2023 Not-Taking Keflex 500 MG 1 capsule Orally every 12 hrs for 5 days 06/21/2022 Not-Taking Extra Depth Orthopedic Shoes (1 Pair) with Customized Heat Molded Multidensity Innersoles (3 Pair) as directed Dx: NIDDM/Polyneuropathy (E11.42), Hammertoe Foot Deformity (M20.41,M20.42), Preulcerative Skin Lesion(s) (L85.1 07/20/2021 Not-Taking Etodolac Not-Taking Aspirin 81 MG Orally Active Vitamin C Active Custom Orthotics as directed 07/20/2021 Active Extra-Depth Diabetic Shoes with 3 Pair Custom heat-molded multi-density innersoles Active Metoprolol Succinate 50mg daily Active Patanol Active Magnesium Chloride A ctive Vitamin B Complex Ac tive Protonix 40 MG Orally Activ e Multivitamins Active Levothroid 100 mg 6x a week Ac tive Fish Oil Active Lisinopril 40 MG Orally Act nata Glucosamine HCl 1500 MG Orally Active Flonase 50 MCG/ACT 1 spray in each nostril Nasally Once a day for 30 day(s) Active Docusate Sodium Acti ve Calcium 500 MG every other day Orally Active Etodolac 400 MG 3 times day Orally Active Estradiol Active Extra Depth Orthopedic Shoes (1 Pair) with Customized Heat Molded Multidensity Innersoles (3 Pair) as directed Dx: NIDDM/Polyneuropathy (E11.42), Hammertoe Foot Deformity (M20.41,M20.42), Preulcerative Skin Lesion(s) (L85.1 Active hydrochlorothiazide Active Custom Orthotics as directed A ctive Nikki Allergy Acti ve Gemtesa 75 MG 1 tablet Orally Once a day for 30 day(s) Active Xyzal Active Voltaren 1 % as directed Externally Active Social History Tobacco Use: Social History Observation Description Date Details (start date - stop date) Never Smoker NA - NA Tobacco Use/Smoking Question Answer Notes Are you a: nonsmoker Additional Findings: Tobacco Non-User Current no n-smoker Tobacco use other than smoking: Question Answer Notes Are you an other tobacco user? No Vital Signs Height 5ft 5in in 06/25/2024 Weight 182 lbs 06/25/2024 BMI 30.28 kg/m2 06/25/2024 Blood pressure systolic 118 mm Hg 06/25/19 25 Blood pressure diastolic 72 mm Hg 025 Encounters Encounter Location Date Provider Diagnosis [facility] [address] [address] 06/25/[address] Type 2 diabetes mellitus with diabetic polyneuropathy E11.42 ; Other hammer toe(s) (acquired), right foot M20.41 and Tinea unguium B35.1 Assessments Encounter Date Diagnosis (ICD Code) Assessment Notes Treatment Notes Treatment Clinical Notes Section Notes 06/25/2024 Type 2 diabetes mellitus with diabetic polyneuropathy (ICD-10 - E11.42) 06/25/2024 Other hammer toe(s) (acquired), right foot (ICD-10 - M20.41) Response to treatment,Impro vement 06/25/2024 Tinea unguium (ICD-10 - B35.1) Plan Of Treatment Next Appt Details Follow Up: 8 Weeks, Reason: Provider Name:Yohana camp, 08/20/2024 09:00:00 AM, [address] [place] [address], [phone], Provider Name:Yohana camp, 10/17/2024 10:00:00 AM, [address] [place] [address], [phone], Procedure Notes * Category Sub-Category Detail Notes [...] use of a nail nipper and/or dremel-type universal grinder tool, to a more viable healthy nail plate [...] to maintain effectiveness in symptomatic relief - 02985 Keratoma Treatment Parring or Cutting o f [...] and described in the exam ( T1, T4, T6, T9, SUB MTH (s), 2, 3, B/L , 5, Left, were pared, and/or cut utilizing a sterile 15 blade, tissue nippers, and/or power dremel instrumentation by the physician of record - 70206 Progress Notes * Shara GERBER TDOB:[birth year] (78 yo F)Acc No.[id number]:06/25/2024 Progress Notes Patient:?Shara GERBER Provider:?Yohana Lane DPM :1945???Age:78 Y???Sex:Female D ate:06/25/2024 Address:[address] [place], [place] [phone] Pcp:Natividad Taylor MD Subjective: * Chief Complaints: * ???At Risk FootcareToe Irrit ation * HPI: ???At Risk footcare:?Pt States Last PCP Visit:?Date?04/17/2024 ???Toe pain:?Nature:?tenderness.?Location:?Right foot, Tip, 3rd toe.?Course:?improved.?Aggravated by:?any pressure, shoes.?Treatments:?Rx shoes, , bracing/splinting/padding, previous flexor tenotomy, change in shoes, inserts.? * ROS:?General/Constitutional:?Nausea?denies.?Vomiting?denies.?Hunger Thirst?denies.?Loss appetite?denies.?Chills?denies.?Fatigue?denies.?Fever?denies.?Night Sweats?denies.?Unexplained weight loss?denies.?Unexplained [...] Hospitalization/Major Diagno stic Procedure:?Patient admitted to [facility] for dizzy spells. 12/17/2014Injection in SI joint- [facility] 11/26/2018[facility]- [facility] 10/16/2019 * Family History:?Mother: dece ased, diagnosed with Unspecified essential hypertension, Unspecified cerebral artery occlusion with cerebral infarction, Family history of arthritis.?Father: , foot problems, diagnosed with Diabetic - NIDDM, Unspecified heart disease.?1 son(s) , 1 daughter(s) . .? * Social History:?Tobacco Use:?Tobacco Use/Smoking?Are you a:?nonsmoker ?Additional Findings: Tobacco Non-User?Current non-smoker ?Tobacco use other than smoking?Are you an other tobacco user??No ???Miscellaneous:?Caffeine: no, none. ?Children: yes, 2. ?Exercise: yes, walking programs, weights, housework. ?Marital status: . 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 * Medications:?TakingXyzal Vol boris 1 % Gel [...] , BMI: 30.28, Shoe size: 9.5, BP: 118/72 mm Hg, BS: 89, Ht-cm: 165.1 cm, Wt-k.55 kg. * ???Past [...] exam reveals keratotic lesion(s) located at, T1, T4, T6, T9, SUB MTH (s), 2, 3, B/L , [...] for office visit today.?ORIENTED:?person, place, and time.?FOOT EXAM:?Footwear Evaluation? Assessment: * Assessment: 1.?Type 2 diabetes mellitus with diabetic polyneuropathy - E11.42???2.?Tinea unguium - B35.1???3.?Other hammer toe(s) (acquired), right foot - M20.41 (Primary)???Specify :Chronic problem, Stable (1=3,2=4)???Notes :Response to treatment,Improvement??? Plan: * Treatment: * Procedures:?Debride Nail 6-10:?Nail [...] use of a nail nipper and/or dremel-type universal grinder tool, to a more viable healthy nail plate [...] to maintain effectiveness in symptomatic relief - 12165.?Keratoma Treatment:?Parring or Cutting of Benign Hyperkeratotic Lesion(s)?(-57) [...] as stated and described in the exam (??T1,?T4,?T6,?T9,?SUB MTH (s),?2,?3,?B/L?,?5,?Left, were pared, and/or cut utilizing a sterile 15 blade, tissue nippers, and/or power dremel instrumentation by the physician of record - 79325.? * Procedure Codes:?23244 DEBRI DE NAIL, 6 OR MORE, Modifiers: XS 00629 TRIM SKIN LESIONS, OVER 4, Modifiers: XS * Preventive Medicine:? ??Counseling:?Discussion:?-12: Office or other outpatient visit for the evaluation and management of an established patient, which required a medically appropriate history and/or examination and STRAIGHTFORWARD level of MEDICAL DECISION MAKING, 1 SELF-LIMITED OR MINOR PROBLEM, MINIMAL- NO AMOUNT/COMPLEXITY OF DATA TO BE REVIEWED/ANALYZED, AND MINIMAL RISK OF COMPLICATION/MORBIDITY. The visit on the day of the [...] have encouraged the patient to call the office.?Shoe Gear Counseling:?The patient and I reviewed the types of shoes they should be wearing. My recommendation included obtaining a well-fitted shoe with a good supportive, non-foldable nor twistable sole, plenty of toe/room for the forefoot, and proper arch support. Based on todays examination, I recommended the patient look for new shoes, by having their feet professionally measured. We discussed that generally the best time of the day for a shoe fitting is the afternoon. Different shoes types and brands to best match the patients occupation and vocation were discussed. Specific brand selection will be up to the patient, their individual foot condition/deformities, and fit. The patient and I reviewed the standard new shoe break in period by wearing them for a few hours a day while checking for redness or sores as wear time is increased. The patient verbally confirmed to understanding the information discussed.? ??Screening/Special Tests:?Fall Risk?Assessment:?Performed ?Screening:?No falls in the past year ?FALLS: Screening for Future Fall Risk?Have you had two or more falls in the past year??No ?Have you had any falls with injury in the past year??No * Follow Up:?8 Weeks * Images: * Sign off status: Completed true * Provider:?Yohana Lane DPM Date:? Generated for Isai leonard/Jaime/Cecilia on:?06/30/2024 04:26 PM EST History and Physical Notes * HPI (History of Present Illness) Category Sub-Category Detail Notes Category Not es Toe pain Nature: tenderness Location: Right foot, Tip, 3rd toe Course: improved Aggravated by: any pressure, shoes Treatments: Rx shoes, , bracing/ splinting/padding, previous flexor tenotomy, change in shoes, inserts At Risk footcare Pt States Last PCP [...] reveal s keratotic lesion(s) located at, T1, T4, T6, T9, SUB MTH (s), 2, 3, B/L , [...] Visual exam of foot performed:: Yes Date: 06/25/2024 Sensory testing performed:: sensations d iminished ORIENTED: person, place, and t shonda Footwear Evaluation Footwear Evaluation performe d:: Yes Ophthalmology Referral DIABETES EYE EXAM Procedure Perform [...]
--- OUTSIDE RECORDS SUMMARY | 2024-06-30 16:27 | XMS_ITS | Continuity of Care Document ---
Author Name [facility] Organization [facility] Care Team Providers Care Betting Agency Counter Clerk Name Role Phone [facility] Unavailable Unavailable Social History Combined list of available smoking, tobacco, and other social history from [facility] Defense and [facility] facilities. Social History Type Response Date Comment Sourc e This section is an empty social history section. [facility]
--- OUTSIDE RECORDS SUMMARY | 2024-06-30 16:27 | XMS_ITS | Data Portability ---
Author Organization [facility], [facility] Address [address] [place] [address] Care Team Providers Care Metal Coater Operator Name Role Phone NGUYỄN ZHANG Phys. Med. & Rehab TIESHA CASTELLON Auxiliary Equipment Tender SHAHRIAR CARBALLO Urologist HELADIO CAREY Orthopedic Surgeon [phone] LORETO ESCOBAR Kindergarten Instructional Assistant [phone] JORGE PLEITEZ Tire Recapping Machine Operator NATIVIDAD TAYLOR Primary Care Provider [phone] [facility] Kindergarten Instructional Assistant Assessment Encounter Date Assessment Date Assessment LastModified by Organization Details LastModified Time 02/11/2024 02/11/2024 dr rosalina salamanca podiatry referral Not available 02/11/2024 18:02:12 04/17/2024 04/17/2024 We completed your Medicare Wellness exam today. This was an opportunity to assess your overall well being including your ability to care for yourself, your mobility, memory, mental health, as well as your safety. With advancing age, it is important to assign someone in your life as your Health Care Proxy (HCP). This person should know what is important to you and what your wishes are for medical procedures if you cannot communicate your wishes yourself (severe illness, unconsciousnes s). We discussed having a completed Health Care Proxy form today. Vision and Hearing are senses that are critically important as we age. When impaired, they can contribute to memory loss, falls, and make it harder to drive, talk to family and friends, and engage in the world. Please get your vision checked yearly and your hearing checked when you start to notice hearing loss. We discussed approaches to lowering your risk of heart disease and stroke . Your blood pressure is at goal. Your cholesterol is at goal. We discussed cancer screening you may need as well as vaccines to prevent infections. Colon Cancer : Your risk of colon cancer is average. Due for colorectal screening:not needed. If you are not planning to have a colonoscopy please screen with stool cards yearly. Breast Cancer : Breast Cancer Screening (mammography). Next mammogram due: 2023. Cervical Cancer Screening (pap test). Next pap due: not needed. Prostate Cancer : PSA testing for ages 55-69 risks and benefits discussed . Influenza Vaccine : Flu shot yearly. Tetanus Vaccine : Every 10 years. Due: . The following vaccines are available from your pharmacy: Pneumonia Vaccine : PCV20: once after age 65. Shingles Vaccine : 2 shots after age 50. Covid Vaccine : Make sure you have received the most up to date covid vaccine. Your personal health goal for the year is: Not available 04/18/2024 16:35:40 Plan of Treatment Reminders Order Date Submit Date Provider Last Modified By Organization Details Last Modified Time Details Appointments Medical Manageme nt 30 2024 10:00A M Natividad Taylor MD Not available Not available Not available Lab HbA1c (hemoglo bin A1c), blood 2023 [facility], [address] [place] [address], [id number], 04/22/2024 10:26:23 immunofi xation, serum 2023 024 [facility], [address] [place] [address], [id number], 04/24/2024 18:07:25 hepatiti s C virus Ab, serum 2023 024 [facility], [address] [place] [address], [id number], 04/14/2024 12:58:15 protein electrop horesis panel, serum or plasma 2023 024 [facility], [address] [place] [address], [id number], 04/14/2024 12:58:17 unlisted lab - protein, total, protein electrop horesis, random urine-qu est 2023 024 [facility], [address] [place] [address], [id number], 04/15/2024 16:03:52 kappa + lambda light chains, free + ratio, quantita tive, serum 2023 024 [facility], [address] [place] [address], [id number], 04/14/2024 12:58:18 vitamin B12, serum 2023 024 [facility], [address] [place] [address], [id number], 04/23/2024 12:08:22 ESR (erythro cyte sediment ation rate), blood 2023 024 [facility], [address] [place] [address], [id number], 04/10/2024 11:37:08 TRUDY (antinuc lear antibodi es) screen, ifa, serum 2023 024 [facility], [address] [place] [address], [id number], 04/14/2024 12:58:21 CBC 2023 024 [facility], [address] [place] [address], [id number], 04/10/2024 10:32:59 HBsAg (hepatit is B surface Ag), serum 2023 024 [facility], [address] [place] [address], [id number], 04/14/2024 12:58:19 lipid panel, serum 2023 024 [facility], [address] [place] [address], [id number], 08/15/2023 12:12:39 CMP, serum or plasma 2023 024 [facility], [address], [place], [address], 08/15/2023 12:12:37 Referral allergis t & immunolo gist referral - Taking flonase plus antihist amine but not effectiv e, interest ed in testing 2023 024 [email or web address] [facility], [address] [place], [address], 08/24/2023 09:16:[address] referral - Known to you, bowel changes and abdomina l pain not resolvin g after few months 2023 024 EDUAR Perkins MD, [address] [place], [address], 10/29/2023 08:11:28 Procedures None recorded . Surgeries None recorded . Imaging None recorded . Medication Orders cephalex in 500 mg capsule 2023 024 [facility][id number], [address] [place], [address], 04/17/2024 10:17:09 diclofen ac sodium 75 mg tablet,d elayed release 2023 024 [facility], [address] [place], [address], 04/17/2024 09:58:53 Patient TargetsNo targets recorded. Patient Instructions Encounter Date Encounter Id Patient Instructions Last Modified By Organization Details Last Modified Time 11/16/2023 [id number] After a discussi on of treatment options, which included consideration of best practices, patient preferences, and the patient? s individual lifestyle and treatment goals, as well as consideration and attempted mitigation of any barriers to meeting the patient? 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 [employer] Ref erral for Allergic rhinitis Taking flonase plus antihistamine but not effective, interested in testing Referring Physician: Natividad Taylor [facility], Encounter Date: 08/23/2023 Results Created Date Observation Date Name Description Value Unit Range Abnormal Flag Note LastModifiedBy Organization Detail LastModifiedTime 07/02/19 24 07/02/2023 CBC WBC 9.45 K/??L 3.98-1 0.04 Not Available [address], [address], 07/02/2023 16:47:24 07/02/19 24 07/02/2023 CBC RBC 4.01 M/??L 3.93-5 .22 Not Available [address], [address], 07/02/2023 16:47:24 07/02/19 24 07/02/2023 CBC HGB 12.7 g/dL 11.2-1 5.7 Not Available [address], [address], 07/02/2023 16:47:24 07/02/19 24 07/02/2023 CBC HCT 37.7 % 34.1-4 4.9 Not Available [address], [address], 07/02/2023 16:47:24 07/02/19 24 07/02/2023 CBC MCV 94.0 fL 79.4-9 4.8 Not Available [address], [address], 07/02/2023 16:47:24 07/02/19 24 07/02/2023 CBC MCH 31.7 pg 25.6-3 2.2 Not Available [address], [address], 07/02/2023 16:47:24 07/02/19 24 07/02/2023 CBC MCHC 33.7 g/dL 32.2-3 5.5 Not Available [address], [address], 07/02/2023 16:47:24 07/02/19 24 07/02/2023 CBC plt 305 K/??L 182-36 9 Not Available [address], [address], 07/02/2023 16:47:24 07/02/19 24 07/02/2023 CBC MPV 10.6 fL 9.4-12 .3 Not Available [address], [address], 07/02/2023 16:47:24 07/02/19 24 07/02/2023 CBC neut% 70.9 % 34.0-7 1.1 Not Available [address], [address], 07/02/2023 16:47:24 07/02/19 24 07/02/2023 CBC neut# 6.69 1.56-6 .13 high Not Available [address], [address], 07/02/2023 16:47:24 07/02/19 24 07/02/2023 CBC lymph % 14.9 % 19.3-5 1.7 low Not Available [address], [address], 07/02/2023 16:47:24 07/02/19 24 07/02/2023 CBC lymph # 1.41 K/??L 1.18-3 .74 Not Available [address], [address], 07/02/2023 16:47:24 07/02/19 24 07/02/2023 CBC mono% 9.4 % 4.7-12 .5 Not Available [address], [address], 07/02/2023 16:47:24 07/02/19 24 07/02/2023 CBC mono# 0.89 0.24-0 .56 high Not Available [address], [address], 07/02/2023 16:47:24 07/02/19 24 07/02/2023 CBC eo% 3.7 % 0.7-5. 8 Not Available [address], [address], 07/02/2023 16:47:24 07/02/19 24 07/02/2023 CBC eo# 0.35 0.04-0 .36 Not Available [address], [address], 07/02/2023 16:47:24 07/02/19 24 07/02/2023 CBC baso% 0.6 % 0.1-1. 2 Not Available [address], [address], 07/02/2023 16:47:24 07/02/19 24 07/02/2023 CBC baso# 0.06 0.00-0 .08 Not Available [address], [address], 07/02/2023 16:47:24 07/02/19 24 07/02/2023 CBC RDW-CV 13.0 % 11.7-1 4.4 Not Available [address], [address], 07/02/2023 16:47:24 07/02/19 24 07/02/2023 CBC Ig% 0.500 % 0.000- 1.500 Ig % >0.5 Indic ates possi ble Left Shift Not Available [address], [address], 07/02/2023 16:47:24 07/02/19 24 07/02/2023 CBC Ig# 0.050 0.000- 0.093 Not Available [address], [address], 07/02/2023 16:47:24 07/02/19 24 07/02/2023 CBC NRBC% 0.0 % 0.0-0. 2 Not Available [address], [address], 07/02/2023 16:47:24 07/02/19 24 07/02/2023 CBC NRBC# 0.000 0.000- 0.012 Not Available [address], [address], 07/02/2023 16:47:24 07/02/19 24 07/03/2023 ESR sed rate 13.0 0.0-15 .0 Not Available [address], [address], 07/03/2023 09:51:37 07/02/19 24 07/03/2023 AMYLA SE amylase 46 U/L 25-115 Not Available [address], [address], 07/03/2023 11:46:30 07/02/19 24 07/03/2023 LIPAS E lipase 26 U/L 16-77 Not Available [address], [address], 07/03/2023 11:46:31 07/02/19 24 07/03/2023 COMP. METAB OLIC PANEL glucose 98 mg/dL 70-100 Not Available [address], [address], 07/03/2023 11:54:32 07/02/19 24 07/03/2023 COMP. METAB OLIC PANEL BUN 43 mg/dL 7-18 high Not Available [address], [address], 07/03/2023 11:54:32 07/02/19 24 07/03/2023 COMP. METAB OLIC PANEL creatinine 1.3 mg/dL 0.8-1. 3 Not Available [address], [address], 07/03/2023 11:54:32 07/02/19 24 07/03/2023 COMP. METAB OLIC PANEL B/C 33.1 ratio Not Available [address], [address], 07/03/2023 11:54:32 07/02/19 24 07/03/2023 COMP. METAB OLIC PANEL GFR 42.9 mL/mi n abnormal >=60m L/min - Sary l or midly reduc ed <60mL /min- Decre ased kidne y funct ion <15mL /min - Kidne y failu re Verdin y Medic al Group calcu lates estim ated Glome rular Filtr ation Rate (eGFR ) using the Chron ic Kidne y Disea se Epide miolo gy Colla borat ion (CKD- EPI) Equat ion (Misael r et. al 2020) as recom mari d by the Natio nal Kidne y Found ation . eGFR is based on age, serum creat inine , and sex. CKD-E PI does not calcu late eGFR by race, does not apply to child jose antonio (age <18 years ), and shoul d not be used in pregn sintia. Not Available [address], [address], 07/03/2023 11:54:32 07/02/19 24 07/03/2023 COMP. METAB OLIC PANEL sodium 140 mmol/ L 136-14 5 Not Available [address], [address], 07/03/2023 11:54:32 07/02/19 24 07/03/2023 COMP. METAB OLIC PANEL potassium 5.0 mmol/ L 3.5-5. 1 Not Available [address], [address], 07/03/2023 11:54:32 07/02/19 24 07/03/2023 COMP. METAB OLIC PANEL chloride 102 mmol/ L 96-107 Not Available [address], [address], 07/03/2023 11:54:32 07/02/19 24 07/03/2023 COMP. METAB OLIC PANEL anion gap 12.2 5.0-15 .0 Not Available [address], [address], 07/03/2023 11:54:32 07/02/19 24 07/03/2023 COMP. METAB OLIC PANEL CO2 26 mmol/ L 21-32 Not Available [address], [address], 07/03/2023 11:54:32 07/02/19 24 07/03/2023 COMP. METAB OLIC PANEL calcium 10.8 mg/dL 8.5-10 .3 high ZINA=V erifi ed by Stephanie lozano Not Available [address], [address], 07/03/2023 11:54:32 07/02/19 24 07/03/2023 COMP. METAB OLIC PANEL total protein 6.9 g/dL 6.4-8. 2 Not Available [address], [address], 07/03/2023 11:54:32 07/02/19 24 07/03/2023 COMP. METAB OLIC PANEL albumin 3.7 g/dL 3.4-5. 0 Not Available [address], [address], 07/03/2023 11:54:32 07/02/19 24 07/03/2023 COMP. METAB OLIC PANEL globulin 3.2 g/dL Not Available [address], [address], 07/03/2023 11:54:32 07/02/19 24 07/03/2023 COMP. METAB OLIC PANEL A/G 1.2 ratio 0.8-2. 0 Not Available [address], [address], 07/03/2023 11:54:32 07/02/19 24 07/03/2023 COMP. METAB OLIC PANEL total bilirubin 0.50 mg/dL 0.00-1 .00 Not Available [address], [address], 07/03/2023 11:54:32 07/02/19 24 07/03/2023 COMP. METAB OLIC PANEL AST 16 U/L 0-37 Not Available [address], [address], 07/03/2023 11:54:32 07/02/19 24 07/03/2023 COMP. METAB OLIC PANEL ALT 22 U/L 6-63 Not Available [address], [address], 07/03/2023 11:54:32 07/02/19 24 07/03/2023 COMP. METAB OLIC PANEL alk. phos. 64 U/L 50-136 Not Available [address], [address], 07/03/2023 11:54:32 07/03/19 24 07/03/2023 URINA LYSIS color YELLOW yellow Not Available [address], [address], 07/03/2023 15:29:20 07/03/19 24 07/03/2023 URINA LYSIS clarity CLEAR clear Not Available [address], [address], 07/03/2023 15:29:20 07/03/19 24 07/03/2023 URINA LYSIS glucose NEGATI VE negati ve Not Available [address], [address], 07/03/2023 15:29:20 07/03/19 24 07/03/2023 URINA LYSIS bilirubin 2+ negati ve abnormal Not Available [address], [address], 07/03/2023 15:29:20 07/03/19 24 07/03/2023 URINA LYSIS ketones NEGATI VE negati ve Not Available [address], [address], 07/03/2023 15:29:20 07/03/19 24 07/03/2023 URINA LYSIS specific gravity 1.020 1.001- 1.035 Not Available [address], [address], 07/03/2023 15:29:20 07/03/19 24 07/03/2023 URINA LYSIS pH 5.5 5.0-8. 0 Not Available [address], [address]498, 07/03/2023 15:29:20 07/03/19 24 07/03/2023 URINA LYSIS protein NEGATI VE negati ve Not Available [address], [address], 07/03/2023 15:29:20 07/03/19 24 07/03/2023 URINA LYSIS urobilinogen 0.2 E.U./D L <1.0 Not Available [address], [address], 07/03/2023 15:29:20 07/03/19 24 07/03/2023 URINA LYSIS nitrates NEGATI VE negati ve Not Available [address], [address], 07/03/2023 15:29:20 07/03/19 24 07/03/2023 URINA LYSIS blood NEGATI VE negati ve Not Available [address], [address], 07/03/2023 15:29:20 07/03/19 24 07/03/2023 URINA LYSIS leukocytes TRACE negati ve abnormal Not Available [address], [address], 07/03/2023 15:29:20 07/03/19 24 07/03/2023 URINE , MICRO SCOPI C WBC 2-4 hpf 0-4/hp f Not Available [address], [address], 07/03/2023 16:00:00 07/03/19 24 07/03/2023 URINE , MICRO SCOPI C RBC None Seen hpf 0-2/hp f Not Available [address], [address], 07/03/2023 16:00:00 07/03/19 24 07/03/2023 URINE , MICRO SCOPI C bacteria TRACE none seen Not Available [address], [address], 07/03/2023 16:00:00 07/03/19 24 07/03/2023 URINE , MICRO SCOPI C yeast NONE SEEN none seen Not Available [address], [address], 07/03/2023 16:00:00 07/03/19 24 07/03/2023 URINE , MICRO SCOPI C squamous epithelial cells 2 hpf 0-5 Not Available [address], [address], 07/03/2023 16:00:00 07/03/19 24 07/03/2023 URINE , MICRO SCOPI C mucous NONE SEEN none seen Not Available [address], [address], 07/03/2023 16:00:00 08/15/19 24 08/15/2023 COMP. METAB OLIC PANEL glucose 90 mg/dL 70-100 Not Available [address], [address], 08/15/2023 12:12:37 08/15/19 24 08/15/2023 COMP. METAB OLIC PANEL BUN 38 mg/dL 7-18 high Not Available [address], [address], 08/15/2023 12:12:37 08/15/19 24 08/15/2023 COMP. METAB OLIC PANEL creatinine 1.1 mg/dL 0.8-1. 3 Not Available [address], [address], 08/15/2023 12:12:37 08/15/19 24 08/15/2023 COMP. METAB OLIC PANEL B/C 34.5 ratio Not Available [address], [address], 08/15/2023 12:12:37 08/15/19 24 08/15/2023 COMP. METAB OLIC PANEL GFR 52.4 mL/mi n abnormal >=60m L/min - Sary l or midly reduc ed <60mL /min- Decre ased kidne y funct ion <15mL /min - Kidne y failu re Verdin y Medic al Group calcu lates estim ated Glome rular Filtr ation Rate (eGFR ) using the Chron ic Kidne y Disea se Epide miolo gy Colla borat ion (CKD- EPI) Equat ion (Misael r et. al 2020) as recom mari d by the Natio nal Kidne y Found ation . eGFR is based on age, serum creat inine , and sex. CKD-E PI does not calcu late eGFR by race, does not apply to child jose antonio (age <18 years ), and shoul d not be used in pregn sintia. Not Available [address], [address], 08/15/2023 12:12:37 08/15/19 24 08/15/2023 COMP. METAB OLIC PANEL sodium 141 mmol/ L 136-14 5 Not Available [address], [address], 08/15/2023 12:12:37 08/15/19 24 08/15/2023 COMP. METAB OLIC PANEL potassium 4.5 mmol/ L 3.5-5. 1 Not Available [address], [address], 08/15/2023 12:12:37 08/15/19 24 08/15/2023 COMP. METAB OLIC PANEL chloride 103 mmol/ L 96-107 Not Available [address], [address], 08/15/2023 12:12:37 08/15/19 24 08/15/2023 COMP. METAB OLIC PANEL anion gap 10.3 5.0-15 .0 Not Available [address], [address], 08/15/2023 12:12:37 08/15/19 24 08/15/2023 COMP. METAB OLIC PANEL CO2 28 mmol/ L 21-32 Not Available [address], [address], 08/15/2023 12:12:37 08/15/19 24 08/15/2023 COMP. METAB OLIC PANEL calcium 9.6 mg/dL 8.5-10 .3 Not Available [address], [address], 08/15/2023 12:12:37 08/15/19 24 08/15/2023 COMP. METAB OLIC PANEL total protein 6.9 g/dL 6.4-8. 2 Not Available [address], [address], 08/15/2023 12:12:37 08/15/19 24 08/15/2023 COMP. METAB OLIC PANEL albumin 3.6 g/dL 3.4-5. 0 Not Available [address], [address], 08/15/2023 12:12:37 08/15/19 24 08/15/2023 COMP. METAB OLIC PANEL globulin 3.3 g/dL Not Available [address], [address], 08/15/2023 12:12:37 08/15/19 24 08/15/2023 COMP. METAB OLIC PANEL A/G 1.1 ratio 0.8-2. 0 Not Available [address], [address], 08/15/2023 12:12:37 08/15/19 24 08/15/2023 COMP. METAB OLIC PANEL total bilirubin 0.50 mg/dL 0.00-1 .00 Not Available [address], [address], 08/15/2023 12:12:37 08/15/19 24 08/15/2023 COMP. METAB OLIC PANEL AST 12 U/L 0-37 Not Available [address], [address], 08/15/2023 12:12:37 08/15/19 24 08/15/2023 COMP. METAB OLIC PANEL ALT 17 U/L 6-63 Not Available [address], [address], 08/15/2023 12:12:37 08/15/19 24 08/15/2023 COMP. METAB OLIC PANEL alk. phos. 60 U/L 50-136 Not Available [address], [address], 08/15/2023 12:12:37 08/15/19 24 08/15/2023 LIPID PANEL cholesterol 178 mg/dL <200 mg/dl Enrique able 200-2 39 mg/dl Borde rline High >240 mg/dl High Not Available [address], [address], 08/15/2023 12:12:39 08/15/19 24 08/15/2023 LIPID PANEL triglyceride s 126 mg/dL <150 mg/dL Sary l 150-1 99 mg/dL Borde rline High 200-4 99 mg/dL High >500 mg/dL Very High Not Available [address], [address], 08/15/2023 12:12:39 08/15/19 24 08/15/2023 LIPID PANEL direct HDL 71 mg/dL <40 mg/dl - Major Risk for CHD >60 mg/dl - Negat nata Risk for CHD Not Available [address], [address], 08/15/2023 12:12:39 08/15/19 24 08/15/2023 LDL - CALCU LATED LDL - calculated 81.8 RISK CATEG ORY LDL GOAL _ CHD or CHD Risk Equiv alent s <100 mg/dl (10-y ear risk >20%) 2+ Risk Facto rs <130 mg/dl (10-y ear risk <= 20%) 0-1 Risk Facto r??? <160 mg/dl ??? Almos t all peopl e with 0-1 risk facto r have a 10 year risk <10%, thus 10 year risk asses ment in peopl e with 0-1 risk facto r is not ivory gutierrez. Not Available [address], [address], 08/15/2023 12:12:40 12/19/19 24 12/19/2023 T4, free, serum TSH 3.76 Not Available [address], [address], 12/31/2023 13:34:02 12/19/19 24 12/19/2023 T4, free, serum free T4 2.0 Not Available [address], [address], 12/31/2023 13:34:02 12/19/19 24 12/19/2023 TSH, serum or plasm a TSH 3.76 Not Available [facility] [address] [place], [address], 12/31/2023 13:30:49 12/19/19 24 12/19/2023 TSH, serum or plasm a free T4 2.0 Not Available [facility] [address] [place], [address], 12/31/2023 13:30:49 12/24/19 24 12/25/2023 ANATO EDA PATHO LOGY path report [facility] [address] [place] [address] Lab Direc tor: Pilar stewart MD Surgi becki Patho logy Repor t Acces earnestine #: [id number] FINAL PATHO LOGIC DIAGN OSIS: A. STOMA CH BODY, POLYP : Hyper plast ic polyp with surfa ce ulcer ation . B. RANDO M COLON , BIOPS Y: No patho logic abnor malit ies. Sarah ctron icall y Molly d Out By Lumin meghna mcclure MD By his/h er signgerri nicolas above , the patho logis t liste d as aundrea ojeda the Final Diagn osis certi fies that he/sh e has perso adrián revie wed this case and confi rmed or corre cted the diagn osis. 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 Hemat ochez ia, Rothman e in bowel habit s. SPECI MENS SUBMI TTED: A: STOMA CH BODY, POLYP B: RANDO M COLON , BIOPS Y GROSS DESCR IPTIO N A. STOMA CH BODY, POLYP : Recei katherine in forma catie is a 1.7 x 0.9 x 0.6 cm polyp oid porti on of mcguire-p ink mucos al tissu e. The base is marke d with ink and the speci men is bisec greg and entir aster submi tted in a singl e casse tte label ed A1. B. SUKUMARO M COLON , BIOPS Y: Recei katherine in forma catie are multi ple irreg ular mcguire-p ink soft tissu e fragm ents varyi ng in size from 0.2 x 0.2 x 0.1 cm up to 0.4 x 0.2 x 0.2 cm which are submi tted in toto in a singl e casse tte label ed B1. Gross ed by: Mike seo, MHS, PA( CP) LT 2023 Gross ing Staff : [id number] Luiz nt Name: SHARA DAVIS : [id number] (Age: 78) Sex: F 0 Insti tutio n: [facility] Locat ion: [facility] Date of Opera tion: 2023 Date of Acces earnestine: 2023 Repor greg: 2023 13:09 Resul ts To: Pasquale leach MD, BS Not Available [facility] [address] [place], [address], 12/25/2023 14:14:54 04/10/20 24 04/10/2024 CBC WBC 5.99 K/??L 3.98-1 0.04 Not Available [address], [address], 04/10/2024 10:32:59 04/10/20 24 04/10/2024 CBC RBC 3.79 M/??L 3.93-5 .22 low Not Available [address], [address], 04/10/2024 10:32:59 04/10/20 24 04/10/2024 CBC HGB 11.9 g/dL 11.2-1 5.7 Not Available [address], [address], 04/10/2024 10:32:59 04/10/20 24 04/10/2024 CBC HCT 36.2 % 34.1-4 4.9 Not Available [address], [address], 04/10/2024 10:32:59 04/10/20 24 04/10/2024 CBC MCV 95.5 fL 79.4-9 4.8 high Not Available [address], [address], 04/10/2024 10:32:59 04/10/20 24 04/10/2024 CBC MCH 31.4 pg 25.6-3 2.2 Not Available [address], [address], 04/10/2024 10:32:59 04/10/20 24 04/10/2024 CBC MCHC 32.9 g/dL 32.2-3 5.5 Not Available [address], [address], 04/10/2024 10:32:59 04/10/20 24 04/10/2024 CBC plt 288 K/??L 182-36 9 Not Available [address], [address], 04/10/2024 10:32:59 04/10/20 24 04/10/2024 CBC MPV 10.7 fL 9.4-12 .3 Not Available [address], [address], 04/10/2024 10:32:59 04/10/20 24 04/10/2024 CBC neut% 62.5 % 34.0-7 1.1 Not Available [address], [address], 04/10/2024 10:32:59 04/10/20 24 04/10/2024 CBC neut# 3.74 1.56-6 .13 Not Available [address], [address], 04/10/2024 10:32:59 04/10/20 24 04/10/2024 CBC lymph % 19.5 % 19.3-5 1.7 Not Available [address], [address], 04/10/2024 10:32:59 04/10/20 24 04/10/2024 CBC lymph # 1.17 K/??L 1.18-3 .74 low Not Available [address], [address], 04/10/2024 10:32:59 04/10/20 24 04/10/2024 CBC mono% 13.7 % 4.7-12 .5 high Not Available [address], [address], 04/10/2024 10:32:59 04/10/20 24 04/10/2024 CBC mono# 0.82 0.24-0 .56 high Not Available [address], [address], 04/10/2024 10:32:59 04/10/20 24 04/10/2024 CBC eo% 3.3 % 0.7-5. 8 Not Available [address], [address], 04/10/2024 10:32:59 04/10/20 24 04/10/2024 CBC eo# 0.20 0.04-0 .36 Not Available [address], [address], 04/10/2024 10:32:59 04/10/20 24 04/10/2024 CBC baso% 0.7 % 0.1-1. 2 Not Available [address], [address], 04/10/2024 10:32:59 04/10/20 24 04/10/2024 CBC baso# 0.04 0.00-0 .08 Not Available [address], [address], 04/10/2024 10:32:59 04/10/20 24 04/10/2024 CBC RDW-CV 12.5 % 11.7-1 4.4 Not Available [address], [address], 04/10/2024 10:32:59 04/10/20 24 04/10/2024 CBC Ig% 0.300 % 0.000- 1.500 Ig % >0.5 Indic ates possi ble Left Shift Not Available [address], [address], 04/10/2024 10:32:59 04/10/20 24 04/10/2024 CBC Ig# 0.020 0.000- 0.093 Not Available [address], [address], 04/10/2024 10:32:59 04/10/20 24 04/10/2024 CBC NRBC% 0.0 % 0.0-0. 2 Not Available [address], [address], 04/10/2024 10:32:59 04/10/20 24 04/10/2024 CBC NRBC# 0.000 0.000- 0.012 Not Available [address], [address], 04/10/2024 10:32:59 04/10/20 24 04/10/2024 ESR sed rate 29.0 0.0-15 .0 high Not Available [address], [address], 04/10/2024 11:37:08 04/10/20 24 04/11/2024 COMP. METAB OLIC PANEL glucose 98 mg/dL 70-100 Not Available [address], [address], 04/11/2024 12:28:40 04/10/20 24 04/11/2024 COMP. METAB OLIC PANEL BUN 34 mg/dL 7-18 high Not Available [address], [address], 04/11/2024 12:28:40 04/10/20 24 04/11/2024 COMP. METAB OLIC PANEL creatinine 1.3 mg/dL 0.8-1. 3 Not Available [address], [address], 04/11/2024 12:28:40 04/10/20 24 04/11/2024 COMP. METAB OLIC PANEL B/C 26.2 ratio Not Available [address], [address], 04/11/2024 12:28:40 04/10/20 24 04/11/2024 COMP. METAB OLIC PANEL GFR 42.6 mL/mi n abnormal >=60m L/min - Sary l or midly reduc ed <60mL /min- Decre ased kidne y funct ion <15mL /min - Kidne y failu re [facility] calcu lates estim ated Glome rular Filtr ation Rate (eGFR ) using the Chron ic Kidne y Disea se Epide miolo gy Colla borat ion (CKD- EPI) Equat ion (Misael donahue et. al 2020) as recom mari d by the Natio nal Kidne y Found ation . eGFR is based on age, serum creat inine , and sex. CKD-E PI does not calcu late eGFR by race, does not apply to child jose antonio (age <18 years ), and shoul d not be used in pregn sintia. Not Available [address], [address], 04/11/2024 12:28:40 04/10/20 24 04/11/2024 COMP. METAB OLIC PANEL sodium 148 mmol/ L 136-14 5 high Not Available [address], [address], 04/11/2024 12:28:40 04/10/20 24 04/11/2024 COMP. METAB OLIC PANEL potassium 4.7 mmol/ L 3.5-5. 1 Not Available [address], [address], 04/11/2024 12:28:40 04/10/20 24 04/11/2024 COMP. METAB OLIC PANEL chloride 103 mmol/ L 96-107 Not Available [address], [address], 04/11/2024 12:28:40 04/10/20 24 04/11/2024 COMP. METAB OLIC PANEL anion gap 14.8 5.0-15 .0 Not Available [address], [address], 04/11/2024 12:28:40 04/10/20 24 04/11/2024 COMP. METAB OLIC PANEL CO2 30 mmol/ L 21-32 Not Available [address], [address], 04/11/2024 12:28:40 04/10/20 24 04/11/2024 COMP. METAB OLIC PANEL calcium 10.0 mg/dL 8.5-10 .3 Not Available [address], [address], 04/11/2024 12:28:40 04/10/20 24 04/11/2024 COMP. METAB OLIC PANEL total protein 6.8 g/dL 6.4-8. 2 Not Available [address], [address], 04/11/2024 12:28:40 04/10/20 24 04/11/2024 COMP. METAB OLIC PANEL albumin 3.6 g/dL 3.4-5. 0 Not Available [address], [address], 04/11/2024 12:28:40 04/10/20 24 04/11/2024 COMP. METAB OLIC PANEL globulin 3.2 g/dL Not Available [address], [address], 04/11/2024 12:28:40 04/10/20 24 04/11/2024 COMP. METAB OLIC PANEL A/G 1.1 ratio 0.8-2. 0 Not Available [address], [address], 04/11/2024 12:28:40 04/10/20 24 04/11/2024 COMP. METAB OLIC PANEL total bilirubin 0.40 mg/dL 0.00-1 .00 Not Available [address], [address], 04/11/2024 12:28:40 04/10/20 24 04/11/2024 COMP. METAB OLIC PANEL AST 15 U/L 0-37 Not Available [address], [address], 04/11/2024 12:28:40 04/10/20 24 04/11/2024 COMP. METAB OLIC PANEL ALT 27 U/L 6-63 Not Available [address], [address], 04/11/2024 12:28:40 04/10/20 24 04/11/2024 COMP. METAB OLIC PANEL alk. phos. 64 U/L 50-136 Not Available [address], [address], 04/11/2024 12:28:40 04/10/20 24 04/11/2024 LIPID PANEL cholesterol 175 mg/dL <200 mg/dl Enrique able 200-2 39 mg/dl Borde rline High >240 mg/dl High Not Available [address], [address], 04/11/2024 12:28:41 04/10/20 24 04/11/2024 LIPID PANEL triglyceride s 151 mg/dL <150 mg/dL Sary l 150-1 99 mg/dL Borde rline High 200-4 99 mg/dL High >500 mg/dL Very High Not Available [address], [address], 04/11/2024 12:28:41 04/10/20 24 04/11/2024 LIPID PANEL direct HDL 60 mg/dL <40 mg/dl - Major Risk for CHD >60 mg/dl - Negat nata Risk for CHD Not Available [address], [address], 04/11/2024 12:28:41 04/10/20 24 04/11/2024 LDL - CALCU LATED LDL - calculated 85 RISK CATEG ORY LDL GOAL _ CHD or CHD Risk Equiv alent s <100 mg/dl (10-y ear risk >20%) 2+ Risk Facto rs <130 mg/dl (10-y ear risk <= 20%) 0-1 Risk Facto r??? <160 mg/dl ??? Almos t all peopl e with 0-1 risk facto r have a 10 year risk <10%, thus 10 year risk asses ment in peopl e with 0-1 risk facto r is not neces matt. Not Available [address], [address], 04/11/2024 12:28:42 04/10/20 24 04/14/2024 HEPAT ITIS C AB W/REF L TO HCV RNA, QN, PCR hepatitis C antibody NON-RE ACTIVE non-re active normal HCV antib doe was non-r eacti ve. There is no labor atory evide nce of HCV infec tion. In most cases , no furth er actio n is requi red. Howev er, if recen t HCV expos ure is suspe cted, a test for HCV RNA (test code 41480 ) is sugge sted. For addit ional infor matio n pleas e refer to http: //[facility] [place] n.que stdia gnost ics.c om/fa q/FAQ 22v1 (This link is being provi ded for infor donald jiménez/ wero cheng ses only. ) Not Available [facility] [place] [facility] [address], [place], [address], 04/14/2024 12:58:15 04/10/20 24 04/14/2024 PROTE IN, TOTAL AND PROTE IN ELECT ROPHO RESIS protein, total 6.5 g/dL 6.1-8. 1 normal Not Available [facility] [place] [facility] [address], [place], [address], 04/14/2024 12:58:17 04/10/20 24 04/14/2024 PROTE IN, TOTAL AND PROTE IN ELECT ROPHO RESIS albumin 3.9 g/dL 3.8-4. 8 normal Not Available [facility] [place] [facility] [address], [place], [address], 04/14/2024 12:58:17 04/10/20 24 04/14/2024 PROTE IN, TOTAL AND PROTE IN ELECT ROPHO RESIS alpha 1 globulin 0.3 g/dL 0.2-0. 3 normal Not Available [facility] [place] [facility] [address], [place], [address], 04/14/2024 12:58:17 04/10/20 24 04/14/2024 PROTE IN, TOTAL AND PROTE IN ELECT ROPHO RESIS alpha 2 globulin 0.8 g/dL 0.5-0. 9 normal Not Available [facility] [place] [facility] [address], [place], [address], 04/14/2024 12:58:17 04/10/20 24 04/14/2024 PROTE IN, TOTAL AND PROTE IN ELECT ROPHO RESIS beta 1 globulin 0.4 g/dL 0.4-0. 6 normal Not Available [facility] [place] [facility] [address], [place], [address], 04/14/2024 12:58:17 04/10/20 24 04/14/2024 PROTE IN, TOTAL AND PROTE IN ELECT ROPHO RESIS beta 2 globulin 0.4 g/dL 0.2-0. 5 normal Not Available [facility] [place] [facility] [address], [place], [address], 04/14/2024 12:58:17 04/10/20 24 04/14/2024 PROTE IN, TOTAL AND PROTE IN ELECT ROPHO RESIS gamma globulin 0.7 g/dL 0.8-1. 7 low Not Available [facility] [place] [facility] [address], [place], [address], 04/14/2024 12:58:17 04/10/20 24 04/14/2024 PROTE IN, TOTAL AND PROTE IN ELECT ROPHO RESIS interpretati on Consi stent with hypog ammag lobul inemi a. Serum free light chain s or urine immun ofixa tion shoul d be consi dered if plasm a cell dyscr asias are a possi ble clini becki diagn osis. Not Available [facility] [address], [address], 04/14/2024 12:58:17 04/10/20 24 04/14/2024 KAPPA /JAMIL DA LIGHT CHAIN S FREE W/RAT IO RFL DEONDRE, S kappa light chain, free, serum 25.5 mg/L 3.3-19 .4 high Not Available [facility] [place] [facility] [address], [address], 04/14/2024 12:58:18 04/10/20 24 04/14/2024 KAPPA /JAMIL DA LIGHT CHAIN S FREE W/RAT IO RFL DEONDRE, S lambda light chain, free, serum 19.3 mg/L 5.7-26 .3 normal Not Available [facility] [place] [facility] [address], [address], 04/14/2024 12:58:18 04/10/20 24 04/14/2024 KAPPA /JAMIL DA LIGHT CHAIN S FREE W/RAT IO RFL DEONDRE, S kappa/lambda light chains free with ratio, serum 1.32 0.26-1 .65 normal Free kappa /jamil da ratio in serum of sary l indiv idual s is 0.26- 1.65. Exces s produ ction of free kappa or lambd a chain s can alter this ratio . Monoc lonal free light chain s are found in serum of patie nts with multi ple myelo ma, Walde nstro m's macro globu linem ia, mu-he светлана chain disea se, prima ry amylo idosi s, light chain depos ition disea se, monoc lonal gammo liz of undet ermin ed signi fican ce, and lymph oprol ifera tive disor ders. Measu remen t of free light chain rudolph ntrat ion in serum is usefu l for diagn osis, progn osis, monit oring disea se activ ity and follo wing respo nse to thera py of these disor ders. Not Available [facility] [place] [facility] [address] [place], [address], 04/14/2024 12:58:18 04/10/20 24 04/14/2024 HEPAT ITIS B SURFA CE ANTIG EN W/REF L CONFI RM hepatitis B surface antigen NON-RE ACTIVE non-re active normal For addit ional infor roopa vera e refer to http: //edu liliana n.que stdia gnost ics.c om/fa q/FAQ (This link is being provi ded for infor donald jiménez/ educa cristhian l purpo ses only. ) Not Available [facility] [place] [facility] [address] [place], [address], 04/14/2024 12:58:19 04/10/20 24 04/14/2024 TRUDY SCREE N, IFA, W/REF L TITER AND PATTE RN TRUDY screen, ifa NEGATI VE negati ve normal TRUDY IFA is a first line scree n for detec ting the prese nce of up to appro ximat aster 150 autoa ntibo dies in vario us autoi mmune disea ses. A negat nata TRUDY IFA resul t sugge sts an TRUDY-a ssoci ated autoi mmune disea se is not prese nt at this time, but is not defin itive . If there is high clini becki suspi cion for Sjogr en's syndr ome, testi ng for anti- SS-A/ Ro antib doe shoul d be consi dered . Anti- Alice-1 antib doe shoul d be consi dered for clini jaqueline suspe cted infla mmato ry myopa kevon . AC-0: Negat nata Inter natio nal Conse nsus on TRUDY Jacek rns (http s://d oi.or g/10. 1515/ [facility]) For addit ional infor roopa vera e refer to http: //[facility] liliana engle.Que stDia gnost ics.c om/fa q/FAQ 177 (This link is being provi ded for infor donald jiménez/ educa cristhian [place] purpo ses only. ) Not Available [facility] [address], [address], 04/14/2024 12:58:21 04/10/20 24 04/15/2024 PROTE IN, TOTAL AND PROTE IN [facility] RICCARDO URINE creatinine, random urine 102 mg/dL 20-275 normal Not Available [facility] [address], [address], 04/15/2024 16:03:52 04/10/20 24 04/15/2024 PROTE IN, TOTAL AND PROTE IN [facility] RANDO URINE protein/crea tinine ratio 78 mg/g_ creat 24-184 normal Not Available [facility] [address], [place], [address], 04/15/2024 16:03:52 04/10/20 24 04/15/2024 PROTE IN, TOTAL AND PROTE IN RICCARDO BHATTI URINE protein/crea tinine ratio 0.078 mg/mg _crea t 0.024- 0.184 normal Not Available [facility] [place] [facility] [address], [place], [address], 04/15/2024 16:03:52 04/10/20 24 04/15/2024 PROTE IN, TOTAL AND PROTE IN RICCARDO BHATTI URINE protein, total, random ur 8 mg/dL 5-24 normal Not Available [facility] [place] [facility] [address], [place], [address], 04/15/2024 16:03:52 04/10/20 24 04/15/2024 PROTE IN, TOTAL AND PROTE IN [facility] RICCARDO LIND URINE albumin 100 % Not Available [facility] [place] [facility] [address], [place], [address], 04/15/2024 16:03:52 04/10/20 24 04/15/2024 PROTE IN, TOTAL AND PROTE IN RICCARDO BHATTI URINE tctim-5-dnik ulins 0 % Not Available [facility] [place] [facility] [address], [place], [address], 04/15/2024 16:03:52 04/10/20 24 04/15/2024 PROTE IN, TOTAL AND PROTE IN RICCARDO BHATTI URINE kfjuy-2-kudh ulins 0 % Not Available [facility] [place] [facility] [address] [place], [address], 04/15/2024 16:03:52 04/10/20 24 04/15/2024 PROTE IN, TOTAL AND PROTE IN ELECT RICCARDO LIND URINE beta globulins 0 % Not Available [facility] [place] [facility] [address] [place], [address], 04/15/2024 16:03:52 04/10/20 24 04/15/2024 PROTE IN, TOTAL AND PROTE IN ELECT RICCARDO LIND URINE gamma globulins 0 % Not Available [facility] [place] [facility] [address] [place], [place], [address], 04/15/2024 16:03:52 04/10/20 24 04/15/2024 PROTE IN, TOTAL AND PROTE IN RICCARDO BHATTI URINE interpretati on Sary l Jacek rn The suppl ier of the testi ng reage nts for this assay has rothman ed. Detec tion of small monoc lonal prote ins may vary by test syste m. Urine immun ofixa tion is sugge sted if clini jaqueline indic ated and not alrea dy order ed. Not Available [facility] [place] [facility] [address], [place], [address], 04/15/2024 16:03:52 04/10/20 24 04/17/2024 IMMUN OFIXA TION, SERUM deondre interpretati on Sary valentina pang rn. No monoc lonal prote ins detec greg. Not Available [facility] [place] [facility] [address], [place], [address], 04/17/2024 16:43:35 04/10/20 24 04/23/2024 VITAM IN B12 vitamin B12 1109 pg/mL 230-10 50 high Not Available [address], [place], [address], 04/23/2024 12:08:22 04/22/20 24 04/22/2024 HGB A1C hemoglobin A1C 5.6 % 4.8-6. 0 Goal: <7% in Patie nts with Diabe lindsey An A1c betwe en 5.7-6 .4% is ident ified as pre-d iabet es and sugge sts risk for progr essio n to diabe lindsey Two a1c value s of 6.5% or highe r is consi stent with a diagn osis of diabe lindsey but may need furth er confi rmati on Not Available [address], [address], 04/22/2024 10:26:22 04/22/20 24 04/22/2024 HGB A1C estimated average glucose 114.0 mg/dL Not Available [address], [address], 04/22/2024 10:26:22 04/22/20 24 04/24/2024 IMMUN OFIXA TION, SERUM deondre interpretati on Sary pang rn. No monoc lonal prote ins detec greg. Not Available [facility] [address], [place], [address], 04/24/2024 18:07:25 04/24/20 24 04/24/2024 MICRO ALBUM IN/CR EATIN INE RATIO PANEL , URINE microalbumin 4.4 mg/L 1.3-20 .0 Not Available [address], [address], 04/24/2024 10:45:43 04/24/20 24 04/24/2024 MICRO ALBUM IN/CR EATIN INE RATIO PANEL , URINE creatinine urine 32.6 mg/dL 30.0-1 25.0 Not Available [address], [address], 04/24/2024 10:45:43 04/24/20 24 04/24/2024 MICRO ALBUM IN/CR EATIN INE RATIO PANEL , URINE microalb/cre at ratio 13.5 mg/g_ creat 0.0-29 .0 Not Available [address], [address], 04/24/2024 10:45:43 07/04/19 24 07/04/2023 US, abdom en, compl ete CLINIC AL HISTOR Y: Epigas tric pain TECHNI QUE: 2D sonogr aphy of the abdome n perfor med. COMPAR YUNIER: None. FINDIN GS: The aorta and IVC are normal sized. The liver is mildly echoge lauren consis tent with fatty infilt ration .. There are no solid liver masses or intrah epatic duct dilata tion. The liver is not enlarg ed. The gallbl adder is thin-w alled. There are no gallst ones and there is no perich olecys tic fluid. The patien t is not focall y tender during examin ation of the gallbl adder. Common duct: 5 mm Right kidney 9.9 x 4.8 cm. The right kidney has no visual ized stones , solid masses , or hydron ephros is. Left kidney 9.5 x 4.8 cm. The left kidney has no visual ized stones , solid masses , or hydron ephros is. There is no ascite s. The visual ized portio ns of the pancre as are normal . There is some limita tion due to overly ing bowel gas. Spleen 9.9 cm. The spleen is unrema rkable . IMPRES EARNESTINE: Mild fatty infilt ration of the liver. . Parag Zhang an: Franck Grover [facility] (Imaging) [address], [place], [address], 07/04/2023 11:49:18 09/14/19 24 09/12/2023 DEXA No observ ation record ed. [facility] [address] [facility], [place], [address], 09/23/2023 17:27:20 05/15/19 25 05/14/2024 MRI, pelvi s No observ ation record ed. [address] [place], [address], 05/15/2024 13:32:51 Result Notes None recorded. 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 44266582 Active 2022 Kristine Dugan LPN null, [facility] 3 16:30:07 Gastric polyp 69582762 Active 2023 hyperpla stic polyp with surface ulcerati on KARINA ROBLEDO [address] [place] [address], [phone] , [facility] 4 14:15:04 Divertic ulosis of colon 592733964 Active 2023 severe; sigmoid colon, descendi ng colon, splenic flexure KARINA ROBLEDO [address] [place] [address], [phone] , [facility] 4 09:34:10 Internal hemorrho ids 14232139 Active 2023 non-blee ding KARINA ROBLEDO [address] [place] [address], [phone] , [facility] 4 09:34:25 Polyneur opathy 06830354 Active 2023 started approx 2013 Natividad Taylor MD [address] [place] [address], [phone] , [facility] 4 13:58:31 Type 2 diabetes mellitus 90675325 Active 2023 Dx around 2006-8; diet controll ed, no complica tions Natividad Taylor MD [address] [place] [address], [phone] , [facility] 4 14:06:29 Mixed hyperlip idemia 355447271 Active 2001 Not Available [facility] 2 11:50:35 Colitis, enteriti s and gastroen teritis presumed infectio us 646948255 Completed 200611/14/2012 Not Available [facility] 3 03:05:57 Essentia l hyperten earnestine 89704085 Completed 199902/03/2009 Not Available [facility] 3 03:05:57 Gastroes ophageal reflux disease 072184601 Completed 200512/02/2012 Not Available [facility] 3 03:05:57 Precordi al pain 61400744 Completed 200511/14/2012 Not Available [facility] 3 03:05:57 Migraine without aura 59513749 Completed 200012/02/2012 Not Available [facility] 3 03:05:57 Osteoart hritis of knee 525221941 Completed 200111/14/2012 Not Available [facility] 3 03:05:57 Increase d frequenc y of urinatio n 059374713 Completed 200411/14/2012 Not Available [facility] 3 03:05:57 Female stress incontin ence 71298547 Completed 200512/02/2012 Not Available [facility] 3 03:05:57 Benign essentia l hyperten earnestine 8939011 Active 2001 Not Available [facility] 2 11:50:35 Atrial fibrilla tion 11386182 Completed 200212/18/2012 Julieth Vargas, GRADUATE RECRUITER [address] [place] [address], [place], [address] , [facility] 3 17:44:02 Allergic rhinitis 11377497 Completed 200612/02/2012 Not Available [facility] 3 03:05:57 Dizzines s 550474861 Completed 200004/11/2012 Not Available [facility] 3 03:05:57 Localize d, primary osteoart hritis 930391450 Completed 200111/14/2012 Not Available [facility] 3 03:05:57 Localize d, primary osteoart hritis of the pelvic region and thigh 068379672 Completed 200211/14/2012 Not Available [facility] 3 03:05:57 Joint pain 06384184 Completed 199902/03/2009 Not Available [facility] 3 03:05:57 Knee pain Completed 200104/11/2012 Not Available [facility] 3 03:05:57 Verruca vulgaris 07466584 Completed 200002/03/2009 Not Available [facility] 3 03:05:57 Allergic rhinitis caused by pollen 12070113 Completed 200004/11/2012 Not Available [facility] 3 03:05:57 Acute maxillar y sinusiti s 57140023 Completed 200002/03/2009 Not Available [facility] 3 03:05:57 Generali zed abdomina l pain 078150043 Completed 200511/14/2012 Not Available [facility] 3 03:05:57 Elevated blood-pr essure reading without diagnosi s of hyperten earnestine 616920507 Completed 200102/03/2009 Not Available [facility] 3 03:05:57 Hyperlip idemia 81902792 Completed 200611/14/2012 Not Available [facility] 3 03:05:57 Acne 84548447 Completed 200002/03/2009 Not Available [facility] 3 03:05:57 Degenera tive joint disease involvin g multiple joints 796112861 Completed 200312/02/2012 Not Available [facility] 3 03:05:57 Ganglion and cyst of synovium , tendon and bursa Completed 12/02/2012 Not Available [facility] 3 03:05:57 Disorder of upper respirat ory system 780445215 Completed 200004/11/2012 Not Available [facility] 3 03:05:57 Hemorrho ids 21460225 Completed 200812/02/2012 Not Available [facility] 3 03:05:57 Acquired hypothyr oidism 980686301 Completed 04/16/2009 Not Available [facility] 3 03:05:57 Tricuspi d valve disorder , non-rheu matic 251348345 Completed 200212/02/2012 Not Available [facility] 3 03:05:57 Excessiv e thirst 50673257 Completed 200511/14/2012 Not Available [facility] 3 03:05:57 Cough 57261900 Completed 12/02/2012 Not Available [facility] 3 03:05:57 Cough 13077470 Completed 200102/03/2009 Not Available [facility] 3 03:05:57 Pulmonar y valve disorder 70418627 Active 2002 Not Available [facility] 2 11:50:35 Viral disease 69370786 Completed 200002/03/2009 Not Available [facility] 3 03:05:57 Tendinit is 98440356 Completed 200702/03/2009 Not Available [facility] 3 03:05:57 Rosacea 635072277 Completed 200612/02/2012 Not Available [facility] 3 03:05:57 Pure hypercho lesterol emia 959705141 Completed 200602/03/2009 Not Available [facility] 3 03:05:57 Finding by method 128653253 Completed 200011/14/2012 Not Available [facility] 3 03:05:57 Abdomina l pain 96060375 Completed 200702/03/2009 Not Available [facility] 3 03:05:57 Common cold 53789774 Completed 200002/03/2009 Not Available [facility] 3 03:05:57 Acute frontal sinusiti s 78187379 Completed 200111/14/2012 Not Available [facility] 3 03:05:57 Hand joint pain 888356752 Completed 200302/03/2009 Not Available [facility] 3 03:05:57 Benign neoplasm of large intestin e 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 Active 2003 Not Available [facility] 2 11:50:35 Herpes zoster 6246779 Completed 200303/26/2013 Not Available [facility] 3 02:02:57 Paronych ia of finger 193659796 Completed 200102/03/2009 Not Available [facility] 3 03:05:57 Disorder of lung 65394805 Completed 200511/14/2012 Not Available [facility] 3 03:05:57 Menopaus al symptom 10259729 Completed 200004/11/2012 Not Available [facility] 3 03:05:57 Conjunct ivitis 1220162 Completed 02/03/2009 Not Available [facility] 3 03:05:57 Migraine 86404956 Completed 200002/03/2009 Not Available [facility] 3 03:05:57 Hypothyr oidism 96332493 Active 2003 no TSH- monitore d by NONG 02/2023 Mary Carmensamara Méndez [facility] 3 08:52:46 Divertic ulosis of colon without divertic ulitis 564880348 Active 2003 Not Available [facility] 2 11:50:35 External hemorrho ids 01260730 Completed 200611/14/2012 Not Available [facility] 3 03:05:57 Viral upper respirat ory tract infectio n 283181971 Completed 02/03/2009 Not Available [facility] 3 03:05:57 Heartbur n 29609026 Completed 200511/14/2012 Not Available [facility] 3 03:05:57 Problem Notes None recorded. Procedures Surgical History Date Name Laterality Status Provider Name and Address Organization Details Recorded Time 04/17/20 24 Medicare Wellness Visit completed Kirsten Brito MA [facility] 04/17/2024 09:19:19 03/01/20 23 Medicare Wellness Visit completed Viki Valenzuela [facility] 03/01/2023 11:15:24 03/01/20 23 Cardiovascular disease risk reduction counseling completed Viki Valenzuela [facility] 03/01/2023 11:15:35 03/21/20 22 Medicare Wellness Visit completed Lico Dsouza [facility] 03/21/2022 07:53:50 03/21/20 22 Alcohol use screening completed Lico [facility] 03/21/2022 07:53:50 03/21/20 22 Cardiovascular disease risk reduction counseling completed Lico [facility] 03/21/2022 07:53:50 02/09/20 21 Medicare Wellness Visit completed Keren Corbin MA [facility] 02/08/2021 11:35:43 02/09/20 21 Alcohol use screening completed Keren Corbin [facility] 02/08/2021 11:35:43 02/09/20 21 Cardiovascular disease risk reduction counseling completed Keren Corbin [facility] 02/08/2021 11:35:43 01/06/20 20 Medicare Wellness Visit completed Viki Valenzuela MA [facility] 01/06/2020 09:31:23 01/06/20 20 prevention-cardiov ascular risk reduction counseling completed Viki Valenzuela [facility] 01/06/2020 09:31:23 01/06/20 20 prevention-annual alcohol misuse screening completed Viki Valenzuela [facility] 01/06/2020 09:31:23 08/07/19 19 Medicare Wellness Visit completed GISSELLE JonesGerri [facility] 08/06/2018 08:54:47 08/07/19 19 POC Strep Testing completed GISSELLE JonesGerri [facility] 08/06/2018 09:48:45 05/25/19 19 POC Flu Testing completed Camille Eduardo , [facility] 05/25/2018 10:05:14 04/01/20 18 POC Strep Testing completed Janell Caldwell [facility] 04/01/2018 10:10:22 08/09/19 18 Medicare Wellness Visit completed Vikira Valenzuela [facility] 08/08/2017 08:56:54 03/28/20 17 Nebulizer Tx completed Nina Ruiz MD [address] [place] [address], [phone], [facility] 03/28/2017 13:13:28 08/10/19 17 Medicare Wellness Visit completed Chantale Mora LPN [facility] 08/09/2016 11:57:45 08/04/19 16 Medicare Wellness Visit completed Chantale Mora LPN [facility] 08/04/2015 10:49:50 08/01/19 15 Medicare Wellness Visit completed Shanice Machado [facility] 07/31/2014 09:02:11 05/07/19 06 Bladder Surgery completed Not Available [facility] 03/23/2011 06:06:16 11/02/19 04 completed Not Available [facility] 03/23/2011 06:05:52 05/07/18 85 Total Hysterectomy completed KARINA Anderson [address] [place] [address], [phone], [facility] 05/30/2011 10:06:48 05/07/18 74 Tonsillectomy completed Not Available [facility] 03/23/2011 06:06:16 Knee Replacement completed Not Available [facility] 03/23/2011 06:06:16 Imaging Results Imaging Date Name Status LastModified by Organiz ation Details LastModified Time 07/04/2023 US, abdomen, complete completed [facility] (Imaging) [address], [place], [address], 07/04/2023 11:49:18 09/12/2023 [facility] [address] [place], [address], 09/23/2023 17:27:20 05/14/2024 MRI, pelvis [place] [address] [place], [address], 05/15/2024 13:32:51 Procedure Notes None recorded. Medical Equipment None Reported. Allergies Allergen ID Allergen Name Allergen Category Reaction Reaction Severity Criticality Documentation Date Start Date Code Code System Note Provider Name and Address Organization Details Recorded Time 778327 tetanus and diphtheri a toxoids Not available Not available Not available Not available 03/03/2019 86040 UNK [facility] 9 09:15:15 [id number] tramadol medicatio n vomiting Not available Not available 01/06/2020 48010 RxNorm [facility] 0 09:36:04 [id number] codeine medicatio n photosens itivity Not available Not available 01/06/2020 2670 RxNorm [facility] 0 09:36:25 [id number] banana extract food,medi cation vomiting Not available Not available 09/13/2021 90089 9 RxNorm [facility] 2 08:29:18 93285 amoxicill in medicatio n itching Not available Not available 04/04/20102009 723 RxNorm and red palms Not Available [facility] 1 06:05:41 7126 Augmentin medicatio n nausea vomiting Not available Not available Not available 08/01/2008 72041 2 RxNorm Not Available [facility] 1 06:05:20 7127 Bactrim medicatio n nausea vomiting Not available Not available Not available 08/01/2008 67408 9 RxNorm Not Available [facility] 1 06:05:20 7128 Maxidex medicatio n nausea vomiting Not available Not available Not available 08/01/200888413 5 RxNorm Not Available [facility] 1 06:05:20 7129 Imitrex medicatio n other severe Not available 08/01/2008 68953 3 RxNorm throa t closi ng/ti nglin g left arm Not Available [facility] 1 06:05:20 Medications Name Sig Start Date Stop Date Status Note LastModified by Organization Details LastModified Time doxycycli ne hyclate 100 mg capsule take one capsule daily active Not Available Not Available No t Available atorvasta tin 20 mg tablet Take 1 tablet every day by oral route for 90 days. active Not Available Not Available No t Available Ceftin 500 mg tablet Take 1 tablet every 12 hours by oral route for 10 days. 04/26 completed Not Available Not Available Not Available clindamyc in HCl 300 mg capsule TAKE 2 CAPSULES BY MOUTH ONE HOUR PRIOR TO DENTAL PROCEDUR E DIRECTED active Not Available Not Available No t Available Anusol-HC 2.5 % rectal cream with applicato r Insert 1 applicat orful twice a day by rectal route. 2011 active Not Available Not Available Not Avai lable azithromy donny 250 mg tablet TAKE 2 TABLETS BY MOUTH TODAY, THEN TAKE 1 TABLET DAILY FOR 4 DAYS 05/25 completed Not Available Not Available Not Available Blood Pressure Cuff 2007 active take blood pressure at home as directed and bring readings to appointm ents. Diagnosi s: hyperten earnestine Not Available Not Available Not Available Lidocaine Viscous 2 % mucosal solution GARGLE 15MLS EVERY 3 HOURS (MAX:8 DOSES PER 24-HOUR PERIOD) MAY BE SWALLOWE D. 01/13 completed no longer using 08/06/2018 TNL Not Available Not Available Not Available tizanidin e 4 mg tablet Take 1 tablet every 8 hours by oral route for 5 days. 04/14 completed Not Available Not Available Not Available metoprolo l succinate ER 50 mg tablet,ex tended release 24 hr TAKE 1 TABLET BY MOUTH ONCE A DAY 2024 active Not Available Not Available Not Avai lable hydrocodo ne 5 mg-acetam inophen 325 mg tablet 01/05 completed Not Available Not Available Not Available Jewell Alex 28 gauge 08/17 completed Not Available Not Available Not Available Zomig 2.5 mg tablet Take 1 tablet (2.5 mg) by oral route once; if headache returns, the dose may be repeated after 2 hours, not to exceed 10 mg within 24 hours 2009 active Last PHA 04/16/09 Not Available Not Available Not Available alclometa sone 0.05 % topical cream 08/17 completed Not Available Not Available Not Available amlodipin e 2.5 mg tablet TAKE 1 TABLET BY MOUTH EVERY DAY DIRECTED 03/01 completed Not Available Not Available Not Available metronida zole 500 mg tablet 09/30 completed Not Available Not Available Not Available acetamino phen 300 mg-codein e 30 mg tablet 01/05 completed Not Available Not Available Not Available clopidogr el 75 mg tablet TAKE 1 TABLET BY MOUTH EVERY DAY 02/02 completed Not Available Not Available Not Available ciproflox acin 250 mg tablet TAKE 1 TABLET BY MOUTH TWICE A DAY 09/07 completed Last day of medicati on 09/04/22 JF Not Available Not Available Not Available prochlorp erazine maleate 10 mg tablet 08/08 completed Not Available Not Available Not Available aspirin 81 mg tablet,de layed release 2006 active Take 1.00 tabs daily Not Available Not Available Not Available tramadol 50 mg tablet 01/05 completed Not Available Not Available Not Available pantopraz ole 20 mg tablet,de layed release TAKE 2 TABLETS BY MOUTH TWICE DAILY active Not Available Not Available No t Available levothyro xine 100 mcg tablet TAKE 1 TABLET BY MOUTH ONCE A DAY 02/10 completed changed to 88mcg 11/16/23 LL Not Available Not Available Not Available levothyro xine 88 mcg tablet Take 1 tablet every day by oral route for 30 days. active endocrin e follows Not Available Not Available Not Available lorazepam 0.5 mg tablet 04/16 completed Take 1.00 tabs every night at bedtime as needed Not Available Not Available Not Available Accu-Chek Advantage Diabetes kit 2007 active Take blood sugar readings as directed . Not Available Not Available Not Available gentamici n 0.3 % eye drops active Not Available Not Available No t Available Nikki 180 mg tablet take 1 po qd 08/17 completed for seasonal allergie s Not Available Not Available Not Available benzonata te 100 mg capsule Take 1 capsule 3 times a day by oral route. active Not Available Not Available No t Available doxycycli ne monohydra te 100 mg capsule TAKE 1 CAPSULE BY MOUTH TWICE A DAY FOR 5 DAYS 03/01 completed Not Available Not Available Not Available cephalexi n 500 mg capsule Take 1 capsule every 6 hours by oral route for 5 days. active Not Available Not Available No t Available oseltamiv ir 75 mg capsule TAKE 1 CAPSULE BY MOUTH TWICE A DAY FOR 5 DAYS 01/13 completed Not Available Not Available Not Available triamcino lone acetonide 0.1 % topical ointment APPLY TOPICALL Y EVERY OTHER DAY. LENTIL SIZED AMOUNT TO VULVA active Not Available Not Available No t Available ranitidin e 300 mg capsule Take 1 capsule twice a day by oral route. 12/24 completed Not Available Not Available Not Available olopatadi ne 0.1 % eye drops 08/22 completed Not Available Not Available Not Available metronida zole 0.75 % topical cream 09/30 completed Not Available Not Available Not Available hydrocort isone acetate 30 mg rectal supposito ry Insert 1 supposit ory twice a day by rectal route as needed. 2008 active Not Available Not Available Not Avai lable codeine 10 mg-guaife nesin 100 mg/5 mL Syrup Take 10 mL every 4 hours by oral route at bedtime. 04/16 completed Not Available Not Available Not Available lisinopri l 30 mg tablet TAKE 1/2 tab po BID 2011 active Not Available Not Available Not Avai lable betametha sone dipropion ate 0.05 % topical cream 01/13 completed no longer using 08/06/2018 TNL Not Available Not Available Not Available docusate sodium 100 mg capsule 08/17 completed 1 bid Not Available Not Available Not Available omeprazol e 20 mg capsule,d elayed release Take 1 capsule every day by oral route. active Not Available Not Available No t Available Vantin 200 mg tablet Take 1 tablet every 12 hours by oral route. 04/16 completed Not Available Not Available Not Available isomethep tene-dich loralphen -acetamin ophen 65 mg-100 mg-325 mg capsule 04/16 completed Take 1.00 caps as directed as needed Not Available Not Available Not Available diclofena c sodium 75 mg tablet,de layed release Take 1 tablet twice a day by oral route for 90 days. 04/17 completed not using 04/17/24 oad Not Available Not Available Not Available etodolac 400 mg tablet TAKE 1 TABLET BY MOUTH THREE TIMES A DAY NEEDED 02/10 completed Not Available Not Available Not Available codeine 10 mg-guaife nesin 100 mg/5 mL oral liquid TAKE 10 ML EVERY 4 HOURS BY ORAL ROUTE AT BEDTIME. 08/20 completed no longer using 08/06/2018 TNL Not Available Not Available Not Available desonide 0.05 % lotion active Not Available Not Available Not Available hydrochlo rothiazid e 25 mg tablet TAKE 1 TABLET BY MOUTH EVERY DAY 2024 active Not Available Not Available Not Avai lable metoprolo l succinate ER 25 mg tablet,ex tended release 24 hr Take 1 tablet every day by oral route for 90 days. 03/21 completed Not Available Not Available Not Available clobetaso l 0.05 % topical ointment 03/01 completed Not Available Not Available Not Available Adjustabl e Wrist Brace 2007 active Wear as directed . Diagnosi s: carpal tunnel syndrome Not Available Not Available Not Available Optivar 0.05 % eye drops Instill 1 drop into affected eye(s) by ophthalm ic route 2 times per day 04/16 completed Not Available Not Available Not Available levofloxa donny 500 mg tablet active Not Available Not Available No t Available estradiol 0.01% (0.1 mg/gram) vaginal cream APPLY A SMALL AMOUNT EXTERNAL LY DAILY X 3 WEEKS, THEN 3 TIMES A WEEK active Not Available Not Available No t Available Anusol-HC 25 mg rectal supposito ry Insert 1 supposit ory twice a day by rectal route for 14 days. 06/18 completed Not Available Not Available Not Available Tessalon 200 mg capsule Take 1 capsule 3 times a day by oral route around the clock. 04/16 completed Not Available Not Available Not Available clobetaso l 0.05 % scalp solution 08/17 completed Not Available Not Available Not Available lisinopri l 40 mg tablet TAKE 1 TABLET BY MOUTH ONCE A DAY 2024 active Not Available Not Available Not Avai lable fluticaso ne propionat e 50 mcg/actua tion nasal spray,yesenia pension USE 2 SPRAYS IN EACH AFFECTED NOSTRIL DAILY DIRECTED active Not Available Not Available No t Available betametha sone dipropion ate 0.05 % lotion active Not Available Not Available Not Available metronida zole 0.75 % topical gel 01/13 completed no longer using 08/06/2018 TNL Not Available Not Available Not Available doxycycli ne hyclate 100 mg tablet 09/30 completed Not Available Not Available Not Available diazepam 5 mg tablet active pt took for sleep years ago Not Available Not Available Not Available nabumeton e 500 mg tablet active Not Available Not Available Not Available tobramyci n 0.3 %-dexamet hasone 0.1 % eye drops,yesenia pension PLACE 1 DROP INTO BOTH EYES FOUR TIMES A DAY FOR 5 DAYS. 02/10 completed Not Available Not Available Not Available oxycodone 5 mg tablet TAKE 1 TABLET BY MOUTH EVERY 6 HOURS NEEDED FOR MODERATE PAIN 08/17 completed Not Available Not Available Not Available cyclobenz aprine 5 mg tablet Take 1 tablet 3 times a day by oral route for 10 days. 06/14 completed Not Available Not Available Not Available Restasis 0.05 % eye drops in a dropperet te 08/17 completed Not Available Not Available Not Available Oxytrol 3.9 mg/24 hr transderm al patch 04/16 completed Take 1.00 patches 2 times a week Not Available Not Available Not Available rosuvasta tin 10 mg tablet TAKE 1 TABLET BY MOUTH EVERY DAY active Not Available Not Available No t Available trospium 20 mg tablet 09/13 completed Not Available Not Available Not Available OneTouch UltraSoft Lancets 2007 active Take 1.00 ea as directed Not Available Not Available Not Available Vesicare 5 mg tablet 01/30 completed Not Available Not Available Not Available Vesicare 10 mg tablet 08/08 completed Not Available Not Available Not Available chlorhexi dine gluconate 0.12 % mouthwash Place 15 mL twice a day by mucous membrane route for 7 days. 08/09 completed Not Available Not Available Not Available magnesium 08/17 completed qpm Not Available Not Available Not Available calcium 08/17 completed Not Available Not Available Not Available vitamins B1 B6 B12 08/08 completed qpm, no longer taking B6 Not Available Not Available Not Available Glucosami ne 08/17 completed 1500mg qam Not Available Not Available Not Available Vitamin D3 08/17 completed 1000 qpm Not Available Not Available Not Available multivita min 08/17 completed qpm Not Available Not Available Not Available Vitamin C-Bioflav onoids 08/17 completed qpm Not Available Not Available Not Available hydrocodo ne 5 mg-acetam inophen 300 mg tablet active Not Available Not Available Not Available ProAir HFA 90 mcg/actua tion aerosol inhaler TAKE 2 PUFFS BY MOUTH EVERY 4 TO 6 HOURS NEEDED 08/08 completed Not Available Not Available Not Available Golytely 236 gram-22.7 4 gram-6.74 gram-5.86 gram oral solution 03/05 completed Not Available Not Available Not Available FreeStyle Lite Strips Test twice daily as directed 08/17 completed Not Available Not Available Not Available FreeStyle Lite Strips Test twice daily as directed 01/29 completed duplicat e Not Available Not Available Not Available levocetir izine 5 mg tablet Take 1 tablet every day by oral route. active not on pt med list 02/11/24 oad Not Available Not Available Not Available Gelnique 10 % (100 mg/gram) transderm al gel packet 02/04 completed Not Available Not Available Not Available Colcrys 0.6 mg tablet 04/01 completed Not Available Not Available Not Available Myrbetriq 25 mg tablet,ex tended release 01/29 completed Not Available Not Available Not Available Myrbetriq 50 mg tablet,ex tended release 07/27 completed Not Available Not Available Not Available Fluad 65yr up(PF)45 mcg(15 mcgx3)/0. 5 mL intramusc ular syringe 03/03 completed Not Available Not Available Not Available Fluad Quad (65yr up)(PF) 60 mcg (15 mcg x 4)/0.5mL IM syringe PHARMACY ADMINIST ERED 07/27 completed Not Available Not Available Not Available Gemtesa 75 mg tablet active Not Available Not Available Not Available Paxlovid 300 mg (150 mg x 2)-100 mg tablets in a dose pack TAKE 3 TABLETS BY MOUTH TWICE A DAY FOR 5 DAYS 02/10 completed Not Available Not Available Not Available Vitals Date Recorded Body height Heart rate Oxygen saturation Oxygen saturation in Arterial blood by Pulse oximetry Systolic blood pressure Diastolic blood pressure Provider Name and Address Organization Details Last Updated DateTime 4 166.37 cm 70 /min 97 % 97 % 144 mm[Hg] 78 mm[Hg] SAULO Pretty [facility] 4 10:09:20 Date Recorded Body height Body mass index (BMI) Body weight Heart rate Systolic blood pressure Diastolic blood pressure Provider Name and Address Organization Details Last Updated DateTime 4 166.37 cm 30.5 kg/m2 09530.6 2 g 80 /min 146 mm[Hg] 66 mm[Hg] Viki newell [facility] 4 08:51:04 Date Recorded Body height Heart rate Oxygen saturation Oxygen saturation in Arterial blood by Pulse oximetry Systolic blood pressure Diastolic blood pressure Provider Name and Address Organization Details Last Updated DateTime 4 166.37 cm 91 /min 99 % 99 % 124 mm[Hg] 72 mm[Hg] Pilar Melendez [facility] 4 16:56:54 Date Recorded Body height Body mass index (BMI) Body weight Heart rate Systolic blood pressure Diastolic blood pressure Provider Name and Address Organization Details Last Updated DateTime 4 166.37 cm 30.3 kg/m2 35620.5 9 g 72 /min 168 mm[Hg] 78 mm[Hg] Kirsten Brito [facility] 4 10:46:16 Date Recorded Body height Body mass index (BMI) Body weight Heart rate Systolic blood pressure Diastolic blood pressure Provider Name and Address Organization Details Last Updated DateTime 4 166.37 cm 30.8 kg/m2 78301.6 5 g 76 /min 156 mm[Hg] 78 mm[Hg] Kirsten Brito [facility] 4 09:33:57 Social History Question Answer Notes LastModified by Organizat ion Details LastModified Time Tobacco Smoking Status Never Smoker Not Available [facility] 03/23/2011 04:53:49 Do You Have An Advance Directive? No [email or web address] Information not available 05/30/2011 What Is Your Level Of Alcohol Consumption? None [email or web address] Information not available 06/04/2012 What Is Your Level Of Caffeine Consumption? None [email or web address] Information not available 03/23/2011 How Much Tobacco Do You Chew? None [email or web address] Information not available 03/23/2011 Are You Currently Employed? No Retired Information not available 02/08/2021 What Type Of Diet Are You Following? [email or web address] Information not available 04/17/2024 Which Illicit Or Recreational Drugs Have You Used? No [email or web address] Information not available 08/04/2015 Do You Or Have You Ever Used E-cigarettes Or Vape? Never Used Electronic Cigarettes Information not available 03/03/2019 What Is The Highest Grade Or Level Of School You Have Completed Or The Highest Degree You Have Received? [id number] Information not available 02/08/2021 How Many Days Of Moderate To Strenuous Exercise, Like A Brisk Walk, Did You Do In The Last 7 Days? 4 Information not available 02/08/2021 Have There Been Any Changes To Your Family Or Social Situation? Yes Lives Alone Information not available 04/17/2024 How Many Days In The Past Year Have You Had A Heavy Drinking Consumption (4+ Female, 5+ Male)? 0 Information not available 08/08/2017 Are There Any Guns Present In Your Home? No [email or web address] Information not available 03/23/2011 Do You Use Insect Repellent Routinely? No Information not available 02/08/2021 Live Alone Or With Others? With Others [email or web address] Information not available 03/23/2011 CSRP - Narcotics No Informat ion not available 12/03/2014 CSRP Contract Signed And Discussed No Information not available 12/03/2014 Patient Has Health Care Proxy Signed And In Chart Yes Stew Gerber, . [email or web address] Information not available 08/09/2018 CSRP - Stimulants No Information not available 12/03/2014 Marital Status Information not available 03/23/2011 Mosquito Repellent Used Routinely Yes [email or web address] Information not available 08/06/2018 What Was The Date Of Your Most Recent Tobacco Screening? 04/17/2024 Information not available 04/17/2024 How Many Children Do You Have? 2 Grown Son And Daughter [email or web address] Information not available 04/28/2010 What Is Your Relationship Status? Information not available 04/17/2024 Do You Use Your Seat Belt Or Car Seat Routinely? Yes Information not available 02/08/2021 Seat Belts Used Routinely Yes [email or web address] Information not available 03/23/2011 Smoke Alarm In Home Yes [email or web address] Information not available 03/23/2011 Do You Have Smoke And Carbon Monoxide Detectors In Your Home? Yes Information not available 02/08/2021 Are You Passively Exposed To Smoke? No Information not available 02/08/2021 Do You Or Have You Ever Used Smokeless Tobacco? Never Used Smokeless Tobacco Information not available 03/03/2019 How Much Tobacco Do You Smoke? No Information not available 12/03/2014 What Types Of Sporting Activities Do You Participate In? None Information not available 08/08/2017 General Stress Level Low [email or web address] Information not available 03/23/2011 Do You Use Any Illicit Or Recreational Drugs? No Information not available 02/08/2021 Do You Use Sunscreen Routinely? Yes [email or web address] Information not available 03/23/2011 How Many Years Have You Smoked Tobacco? 0 Information not available 03/03/2019 Do You Or Have You Ever Used Any Other Forms Of Tobacco Or Nicotine? No Information not available 08/17/2022 Sex: Female Functional Status Question Answer Note LastModified by Organizat ion Details LastModified Time What is your exercise level? Moderate walking programs inside, chair yoga, bone strengthening Information not available 04/17/2024 Mental Status None recorded. Family History Relationship Description Onset Age of this Age Resolved Age Notes LastModified by Organization Details LastModified Time Sister Hypertensive disorder previo usly record ed as Hypert ension [email or web address] Not available 07/30/2013 08:51:44 Sister Malignant tumor of pancreas [email or web address] Not available 2023 09:28:53 Paternal Grandmother Diabetes mellitus previo usly record ed as Diabet es [email or web address] Not available 07/30/2013 08:51:44 Paternal Uncle Diabetes mellitus x 2 (previ ously record ed as Diabet es) [email or web address] Not available 07/30/2013 08:51:44 Father Myocardial infarction 74 [email or web address] Not available 07/30 08:51:44 Father Diabetes mellitus previo usly record ed as Diabet es [email or web address] Not available 07/30/2013 08:51:44 Mother Hypertensive disorder previo usly record ed as Hypert ension [email or web address] Not available 07/30/2013 08:51:44 Notes:No cancer Medical History Condition Response Atrial Fibrillation Y Migraine Headaches Y rosacea Y Diverticulosis Y GERD Y Skin Cancer Y Osteoarthritis Y Hypothyroid Y RENAL / GENITOURINARY Y Allergic Rhinitis Y Hyperlipidemia Y Diabetes Type II Hypertension Y Gynecological History Statement/Question Response Menses Monthly N Obstetrics History GPAL:G 0 P 0 0 0 0 Immunizations Vaccine Type Date Status Note Provider Nam e and Address Organization Details Recorded Time zoster live 1 completed Not Available [facility] 05/24/2019 02:28:46 influenza, unspecified formulation 4 completed Not Available [facility] 03/01/2022 13:18:28 influenza, unspecified formulation 4 completed Not Available [facility] 03/01/2022 13:18:28 pneumococcal polysaccharide PPV23 2 completed Not Available [facility] 05/24/2019 02:14:32 Novel arebmuvpl-[id number] 9 completed Not Available [facility] 05/24/2019 02:38:45 Influenza, split virus, quadrivalent, PF 3 completed Not Available [facility] 05/24/2019 02:25:03 Influenza, split virus, trivalent, preservative 2 completed Not Available [facility] 03/01/2022 13:18:29 Td(adult) unspecified formulation 9 completed Not Available [facility] 03/01/2022 13:18:28 Pneumococcal conjugate PCV 13 6 completed Not Available [facility] 05/24/2019 02:31:08 Influenza, high-dose, trivalent, PF 7 completed Not Available [facility] 05/24/2019 02:27:06 Influenza, high-dose, trivalent, PF 5 completed Not Available [facility] 03/01/2022 13:18:28 pneumococcal polysaccharide PPV23 8 completed Not Available [facility] 05/24/2019 02:27:43 Influenza, high-dose, trivalent, PF 8 completed Not Available [facility] 05/24/2019 02:23:03 Influenza, split virus, quadrivalent, preservative 6 completed Not Available [facility] 03/01/2022 13:18:28 Influenza, split virus, quadrivalent, preservative 9 completed Not Available [facility] 03/01/2022 13:18:28 Influenza, high-dose, quadrivalent, PF 0 completed Not Available [facility] 03/01/2022 13:18:28 COVID-19, mRNA, LNP-S, PF, 30 mcg/0.3 mL dose 1 completed Not Available [facility] 03/01/2022 13:18:28 COVID-19, mRNA, LNP-S, PF, 30 mcg/0.3 mL dose 1 completed Not Available [facility] 03/01/2022 13:18:28 Influenza, high-dose, quadrivalent, PF 2 completed WILLY Oquendo, [facility] 02/13/2022 08:34:00 zoster recombinant 1 completed Not Available [facility] 03/01/2022 13:18:28 zoster recombinant 1 completed Not Available [facility] 03/01/2022 13:18:28 COVID-19, mRNA, LNP-S, PF, 30 mcg/0.3 mL dose 1 completed Not Available [facility] 03/01/2022 13:18:28 Influenza, high-dose, trivalent, PF 4 completed Natividad Taylor MD [address] [place] [address], [id number], [facility] 02/11/2024 11:02:14 Influenza, split virus, quadrivalent, preservative 1 completed Not Available [facility] 03/01/2022 13:18:28 COVID-19, mRNA, LNP-S, PF, 30 mcg/0.3 mL dose 2 completed Not Available [facility] 03/01/2022 13:18:28 Influenza, high-dose, quadrivalent, PF 3 completed SRINIVAS Ramesh [facility] 03/01/2023 11:22:34 COVID-19, mRNA, LNP-S, PF, 30 mcg/0.3 mL dose 3 [facility] 11:22:53 Past Encounters Encounter ID Performer Location Encounter Start Date Encounter Closed Date Diagnosis/Indication Diagnosis SNOMED-CT Code Diagnosis ICD10 Code Diagnosis Note [id number] Radiology , [address] [address] 03/15/2000 15:00:00 05/27/2008 02:02:29 [id number] [facility], [address] [place] [address] 05/16/2000 11:45:00 05/27/2008 02:02:29 [id number] [facility], [address] [place] [address] 06/05/2000 15:30:00 05/27/2008 02:02:29 [id number] [facility], [address] [place] [address] 07/02/2000 10:00:00 05/27/2008 02:02:29 [id number] Radiology , [facility] [address] [place] [address] 07/02/2000 10:15:00 05/27/2008 02:02:29 [id number] [facility], [address] [place] [address] 07/11/2000 15:00:00 05/27/2008 02:02:29 [id number] [facility], [address] [place] [address] 08/07/2000 16:45:00 05/27/2008 02:02:29 [id number] FP, [facility], OFFICE [address] [facility] [address] [place], [place] [address] 09/21/2000 11:00:00 05/27/2008 02:02:29 [id number] FP, [facility], OFFICE [address] [facility] [address] [place], [place] [address] 09/26/2000 10:45:00 05/27/2008 02:02:29 [id number] Radiology , [facility] 70 [facility] [place] [address] 10/03/2000 13:30:00 05/27/2008 02:02:29 [id number] FP, [facility], OFFICE [address] [facility] [place] [address] 10/29/2000 10:00:00 05/27/2008 02:02:29 [id number] FP, [facility], OFFICE [address] [facility] [place] [address] 03/23/2000 15:15:00 05/27/2008 02:02:29 [id number] FP, [facility], OFFICE [address] [facility] [address] [place], [place] [address] 12/04/2000 14:00:00 05/27/2008 02:02:29 [id number] FP, [facility], OFFICE [address] [facility] [place] [address] 6 10/24/2001 14:26:58 05/27/2008 02:02:29 [id number] FP, [facility], OFFICE [address] [facility] [place] [address] 11/22/2001 10:51:47 05/27/2008 02:02:29 [id number] , [facility], OFFICE [address] [facility] [place] [address] 01/10/2002 10:02:23 05/27/2008 02:02:29 [id number] LAB - [facility] 70 [facility] [place] [address] 01/10/2002 00:00:00 05/27/2008 02:02:29 [id number] Radiology , [facility] 70 [facility] [place] [address] 01/11/2002 09:46:53 05/27/2008 02:02:29 [id number] FP, [facility], OFFICE [address] [facility] [place] [address] 02/05/2002 16:14:32 05/27/2008 02:02:29 [id number] LAB - [facility] 70 [place] [address] 03/17/2002 16:25:31 05/27/2008 02:02:29 [id number] [facility], OFFICE [address] [facility] [place] [address] 03/17/2002 15:46:16 05/27/2008 02:02:29 [id number] LAB - [facility] [address] [place] [place] [address] 03/19/2002 10:14:52 05/27/2008 02:02:29 [id number] FP [facility], OFF[address] [place] [address] 04/09/2002 13:31:56 05/27/2008 02:02:29 [id number] FP [facility], OFFICE [address] [facility] [place] [address] 06/30/2002 10:01:08 05/27/2008 02:02:29 [id number] FP [facility], OFFICE [address] [facility] [place] [address] 07/09/2002 09:34:05 05/27/2008 02:02:29 [id number] [facility], OFFICE [address] [facility] [place] [address] 08/07/2002 10:14:41 05/27/2008 02:02:29 [id number] [facility], OFFICE [address] [facility] [place] [address] 01/30/2003 15:38:16 02/02/2003 14:46:28 [id number] FP [facility], OFFICE [address] [facility] [place] [address] 06/01/2003 16:24:05 06/02/2003 07:24:23 [id number] FP [facility], OFFICE [address] [facility] [place] [address] 09/04/2003 13:03:29 09/04/2003 17:32:02 [id number] FP, [facility], OFFICE [address] [facility] [place] [address] 09/09/2003 15:35:08 09/10/2003 08:46:56 [id number] FP, [facility], OFFICE [address] [facility] [place] [address] 10/08/2003 14:41:08 10/09/2003 08:50:38 [id number] [facility] [address] [place] [address] 11/02/2003 09:37:46 11/02/2003 17:26:05 [id number] LAB - [facility] [address] [place] [address] 01/12/2004 11:12:23 01/12/2004 11:13:34 [id number] [facility], OFFICE [address] [place] 6 03/22/2004 09:15:50 03/22/2004 16:19:11 [id number] FP [facility], OFFICE [address] [place] 6 04/14/2004 15:22:15 04/15/2004 09:02:49 [id number] FP [facility], OFFICE [address] [place] 6 05/04/2004 15:30:49 05/04/2004 15:30:54 [id number] [facility], OFFICE [address] [place] [address] 01/13/2005 10:55:02 01/14/2005 10:47:44 [id number] [facility], OFFICE [address] [place] [address] 01/24/2005 10:46:04 05/27/2008 02:02:29 [id number] FP [facility], OFFICE [address] [place] [address] 08/09/2005 14:12:44 08/10/2005 08:51:46 [id number] FP [facility], OFFICE [address] [place] [address] 6 09/21/2005 14:42:44 05/27/2008 02:02:29 [id number] FP [facility], OFFICE [address] [place] [address] 10/16/2005 10:27:20 05/27/2008 02:02:29 [id number] FP [facility], OFFICE [address] [place] [address] 01/04/2006 16:09:32 01/05/2006 08:20:05 [id number] FP [facility], OFFICE [address] [place] [address] 03/12/2006 08:27:30 03/12/2006 15:19:16 [id number] FP [facility], OFFICE [address] [place] [address] 09/27/2006 08:27:17 09/27/2006 10:51:31 [id number] FP, [facility], OFFICE [address] [place] [address] 02/25/2007 07:56:42 02/28/2007 09:51:01 [id number] FP, [facility], OFFICE [address] [place] [address] 04/19/2007 09:41:59 04/25/2007 09:41:16 [id number] FP, [facility], OFFICE [address] [place] [address] 06/04/2007 11:28:54 05/27/2008 02:02:29 [id number] FP, [facility], OFFICE [address] [place] [address] 07/04/2007 08:24:37 05/27/2008 02:02:29 [id number] FP, [facility], OFF[address] [place] [address] 6 01/13/2008 08:23:52 05/27/2008 02:02:29 [id number] FP, [facility], OFFICE [address] [place] [address] 03/19/2008 07:50:31 05/27/2008 02:02:29 [id number] FP, [facility], OFFICE [address] [place] [address] 04/20/2008 09:40:57 05/27/2008 02:02:29 [id number] FP, [facility], OFFICE [address] [place] [address] 08/01/2008 09:28:36 08/05/2008 12:14:25 [id number] FP, [facility], OFF[address] [place] [address] 10/18/2008 10:31:18 10/22/2008 10:57:13 [id number] FP, [facility], OFF[address] [place] [address] 04/16/2009 09:10:40 04/19/2009 14:44:47 [id number] FP, [facility], OFFICE [address] [place] [address] 05/04/2009 08:15:50 05/04/2009 16:29:25 [id number] FP, [facility], OFFICE [address] [place] [address] 12/24/2009 09:55:07 12/24/2009 11:01:11 [id number] FP, [facility], [address] [place] [address] 04/28/2010 10:54:30 05/11/2010 14:53:42 [id number] FP, [facility], OFFICE [address] [place] [address] 10/04/2010 15:31:04 10/06/2010 09:16:18 [id number] Shanice Machado MA , [facility], OFFICE [address] [place] [address] 05/30/2011 08:49:55 05/30/2011 10:43:23 [id number] , [facility], OFFICE [address] [place] [address] 07/07/2011 07:44:55 07/07/2011 08:27:01 [id number] , [facility], OFFICE [address] [place] [address] 08/28/2011 07:49:20 08/29/2011 10:49:51 [id number] , [facility], OFFICE [address] [place] [address] 10/30/2011 12:03:51 10/30/2011 12:52:47 [id number] , [facility], OFFICE [address] [place] [address] 12/28/2011 07:47:06 12/28/2011 12:00:35 [id number] [facility] , [facility] [address] [place] [address] 12/28/2011 08:34:08 12/28/2011 09:15:53 [id number] MIKE Hernandez , [facility], OFFICE [address] [place] [address] 02/07/2012 07:19:15 02/07/2012 07:58:48 [id number] Roni Park MA , [facility], OFFICE [address] [place] [address] 03/26/2012 07:25:44 03/26/2012 08:16:55 [id number] MIKE Hernandez , [facility], OFFICE [address] [place] [address] 04/09/2012 07:30:06 04/09/2012 08:31:09 [id number] Gopal Proctor MD Radiology , [facility] [address] [place] [address] 04/09/2012 08:06:05 04/10/2012 08:59:10 [id number] Shanice Machado MA , [facility], OFFICE [address] [place] [address] 06/04/2012 08:17:26 06/04/2012 09:34:27 [id number] Roni Park MA , [facility], OFFICE [address] [place] [address] 08/18/2012 08:49:42 08/19/2012 12:15:45 [id number] [facility], OFFICE [address] [place] [address] 12/18/2012 08:37:11 12/19/2012 12:02:29 Pre-surgery evaluation [id number] 67 yo F is seen for preop evalaution , medical HX :Hypothyro idism-stab le, HTN-contro lled, Hyperlipid emia-trigl ycerides remain out of range-pt. is @ low risk for this moderately risky surgery. Cleared for surgery at this time. Hammer toe [id number] Alyssa edued for surgical repair Blood gluc ose outside reference range [id number] Adele Andersen , [facility], OFFICE [address] [place] [address] 03/11/2013 07:21:00 03/14/2013 11:40:45 Ganglion of hand 544938403 L index finger, will refer to Dr. Raya for further evalaution & treatment . Influenza vaccine needed [id number] Shanice Machado MA , [facility], [address] [place] [address] 07/23/2013 13:23:28 07/24/2013 15:17:50 Sinusitis 72084901 [id number] Shanice Machado MA , [facility], OFFICE [address] [place] [address] 07/30/2013 08:37:23 07/30/2013 13:18:07 Benign essential hypertension 6448953 Blood pressure at goal Adult heal th examination [id number] see Risk Assessment and Lifestyle Change Counseling section above 67 yo F seen for PHA, hypertensi on is stable, labs reviewed, mammogram is UTD, colonoscop y is UTD, meds reordered per pt. request, HCM needs discussed [id number] Shanice Machado MA , [facility], OFFICE [address] [place] [address] 12/22/2013 08:42:35 12/22/2013 09:18:04 Sinusitis 34099077 Allergic to multiple antibiotic s. Will give Zithromax again. Possibilit y of ENT referral d/w pt, she prefers to wait and consider this in the future. [id number] MIKE Hernandez , [facility], OFFICE [address] [place] [address] 04/21/2014 14:16:31 04/21/2014 15:09:18 Sinusitis [id number] Questionab le, will treat w/ Z-vee, .if symptoms do not improve within the next 2-3 days return to office for further evaluation Lightheadedness 174627940 EKG done, reassured. if symptoms persist return to office for evaluation . Patient agrees with this plan. [id number] Adele Andersen , [facility], OFFICE [address] [place] [address] 04/28/2014 07:24:16 04/28/2014 08:13:24 Lightheadedness [id number] Lyme Test ordered per patient request Transient cerebral ischemia [id number] Will refer to vascular surgery for further evaluation post recent hospitaliz ation for TIAs and a carotid ultrasound that shows 50% stenosis of the right ICA. [id number] Amalia Edwards , [facility], [address] [place] [address] 07/31/2014 08:44:39 08/03/2014 09:52:25 Benign essential hypertension 0942524 Blood pressure at goal. Continue on Lisinopril 40 mg & Metoprolol ER 50 mg as ordered Adult heal th examination [id number] see Risk Assessment and Lifestyle Change Counseling section above 68 y o F seen for disease management PHA, labs ordered & recent labs reviewed, mammogram & colonoscop y are UTD, HCM needs discussed. Counseling [id number] Hypothyroidism 60170842 Adjust Levothyrox ine to 100 nicolas a day for 6 days, no med X1 d, recheck TSH in 6 weeks Hypertriglyceridemia 655351977 Pt. to work on diet & exercise, plan to recheck lipids in 3 m. [id number] Pasquale Lee MD , [facility], OFF[address] [place] [address] 10/11/2014 09:41:24 10/11/2014 10:15:52 Common cold 95609948 [id number] Ngoc Jania , [facility], [address] [place] [address] 12/03/2014 07:20:25 12/03/2014 08:02:55 Contusion of hip 57327561 Left hip w/ extensive bruising extending to upper L leg. Continue to use heat to affected area, watch for any increase in pain, redness or swelling. Agrees w/plan. [id number] Tania Feng , [facility], [address] [place] [address] 01/26/2015 07:20:42 01/26/2015 08:09:35 Benign essential hypertension 4484647 Blood pressure is borderline . Continue on lisinopril & metoprolol . Hyperlipidemia 27843521 Will start Crestor as ordered below. Discussed diet & exercise. Referred to nutrition. F/U in 3 months or sooner PRN. Obesity 653816675 Impaired g lucose tolerance 3385599 Hypothyroidism 60002367 Last TSH 2.63, continue on Levothyrox ine 100 mcg. [id number] MIKE Hernandez [facility], OFF[address] [place] [address] 04/26/2015 07:18:31 04/26/2015 08:11:41 Mixed hyperlipidemia 033465334 E78.2 Cholestero l is at goal. Pt. would like to stop the Crestor & reevalaute her Lipids in 3 m. OK to stop Crestor. Continue to work on diet and exercise as discussed Benign ess ential hypertension 4301188 I10 Blood pressure at goal Hypothyroidism 95046214 E03.9 Last TSH 2.63, continue on Levothyrox ine 100 mcg. [id number] MIKE Hernandez , [facility], OFF[address] [place] [address] 07/01/2015 14:26:21 07/02/2015 08:47:04 Urinary tract infectious disease 46733280 N39.0 urine dipstick in office does not indicate UTI at this time, patient does have a history of interstiti al cystitis, advised to push fluids. patient to telephone urology for follow-up f/u if no improvemen t in 72 hours or for fever or back pain. [id number] MIKE Hernandez , [facility], [address] [place] [address] 08/04/2015 10:44:30 08/04/2015 11:39:45 Adult health examination 260812585 Z00.00 See Risk Assessment and Lifestyle Change Counseling section above 68 y o F seen for disease management PHA, labs ordered & recent labs reviewed, mammogram & colonoscop y are UTD, HCM needs discussed. Counseling 281385295 Z71 .9 Active or passive immunization 528080564 Z23 Benign ess ential hypertension 9889067 I10 Blood pressure at goal. Continue on Lisinopril 40 mg & Metoprolol ER 50 mg as ordered Hypothyroidism 74350789 E03.9 Adjust Levothyrox ine to 100 nicolas a day, TSH ordered Hyperlipidemia 59158731 E78.5 Pt. to work on diet & exercise, plan to recheck lipids in 3 m. [id number] MIKE Hernandez , [facility], [address] [place] [address] 02/03/2016 08:43:39 02/04/2016 11:07:07 Benign essential hypertension 9150390 I10 Blood pressure at goal. Continue on Lisinopril 40 mg & Metoprolol ER 50 mg as ordered Ulcer of mouth 31652979 K12.1 oral ulcer X 2 weeks, Chlorhexid ine ordered as written below, if no improvemen t in 1 w. RTC, may need to see oral surgeon Knee pain 43623608 M25.5 69 Bilateral knee pain, needs referral for appt. that she has already scheduled Hyperlipidemia 38544938 E78.5 At goal. Pt. to continue to work on diet & exercise, plan to recheck lipids in 3 m. [id number] Won Lopez MD , [facility], [address] [place] [address] 05/14/2016 11:29:08 05/15/2016 13:40:01 Diarrhea 82093697 R19.7 Patient with now 2-week duration of diarrhea. No clinical evidence of acute abdomen. Denies BRBPR or melena. No significan t abdominal pain. Previously had a colonoscop y in 2008 (recommend ed 8 years, but later told by Dr. Moore to repeat in 10 years). Only showed sigmoid diverticul osis. Denies any recent travel or antibiotic use. Daughter with celiac disease. Check TTG Ab, O&P, stool culture, C. diff screen and CBC. BRAT diet and ample hydration recommende d. Indication s for UC/ER use reviewed. Advised to contact the clinic with any worsening symptoms. [id number] MIKE Hernandez, [facility], [address] [place] [address] 08/09/2016 11:41:59 08/09/2016 12:49:14 Adult health examination 390097303 Z00.00 see Risk Assessment and Lifestyle Change Counseling section above70 y o F seen for disease management PHA, recent labs reviewed, mammogram & colonoscop y are UTD, HCM needs discussed. Counseling 935841806 Z71 .9 Gastroesop hageal reflux disease 407376033 K21.9 more s/s of GERD despite med-Pantop razole 20 mg QD, referred to GI Instability of joint 673 50110 M25.30 L thumb click [id number] MIKE Hernandez, [facility], [address] [place] [address] 01/29/2017 07:32:51 01/29/2017 08:05:26 Benign essential hypertension 5694798 I10 Blood pressure at goal. Continue on Lisinopril 40 mg & Metoprolol ER 50 mg as ordered Hyperlipidemia 03189879 E78.5 At goal. Continue on Rosuvastat in 10 mg/d..Pt. to continue to work on diet & exercise, plan to recheck lipids in 6 m. Hypothyroidism 50564915 E03.9 TSH-1.7, no med changes made at this time. [id number] SRINIVAS Briseno, [facility], [address] [place] [address] 02/26/2017 09:48:10 02/27/2017 10:37:22 Active or passive immunization 740023517 Z23 [id number] MIKE Hernandez, [facility], [address] [place] [address] 03/05/2017 07:54:18 03/06/2017 08:30:28 Common cold 68179050 J00 Cold self care measures reviewed and encouraged (fluids, steam inhalation , adequate rest). F/U if sx worsen or aren't resolving. [id number] Sylvia Howard, [facility], [address] [place] [address] 03/28/2017 12:09:03 03/28/2017 12:59:55 Cough 56743581 R05 post viral coughsome decreased peak flowsother story normal examin office nebulizier some subjective improvemen t and in peak flows notedwill try inhaler with spacer at homesuppor tive measures belowf/u if any new sx or worse or not improved in one month [id number] MIKE Hernandez, [facility], [address] [place] [address] 08/08/2017 08:42:35 08/08/2017 09:49:33 Adult health examination 371950742 Z00.00 see Risk Assessment and Lifestyle Change Counseling section above71 y o F seen for disease management PHA, recent labs reviewed, mammogram & colonoscop y are UTD, HCM needs discussed. Counseling 932806266 Z71 .9 Depression screening 171 447000 Z13.89 depression screening tool administer ed, entered into emr, scored and discussed, time greater than 7.5 minutes Benign ess ential hypertension 3900229 I10 Blood pressure at goal Mixed hyperlipidemia 267 892683 E78.2 Cholestero l is at goal. Continue to work on diet and exercise as discussed [id number] MIKE Hernandez, [facility], [address] [place] [address] 01/30/2018 07:37:38 01/30/2018 08:30:32 Benign essential hypertension 5004627 I10 Blood pressure NOT at goal Mixed hyperlipidemia 267 768995 E78.2 Cholestero l is at goal. Continue to work on diet and exercise as discussed Hyperglycemia 67848893 R 73.9 Lancets & strips ordered per pt. request Active or passive immunization 483071292 Z23 [id number] WILLY Shannon, [facility], [address] [place] [address] 02/15/2018 07:40:51 02/15/2018 11:30:22 Active or passive immunization 646297504 Z23 [id number] MIKE Hernandez , [facility], [address] [place] [address] 02/27/2018 14:00:05 02/27/2018 14:36:22 Serous otitis media 40026226 H65.03 Advised to use Claritin-D . If no improvemen t in 7-10 d RTC. Agrees. [id number] KARINA Anderson , [facility], [address] [place] [address] 04/01/2018 09:42:58 04/02/2018 16:20:26 Pain in throat 108025945 R07.0 Sore throat x 4 days. Posterior oropharynx erythemato us, right sided exudate. Rapid Strep negative. Suspect viral pharyngiti s. Culture sent today. Hearing loss 67135875 H9 1.91 Ongoing fullness in ears, right ear is worse. Dx with otitis media on 02/27/2018 . Did not tolerate recommende d Claritin- d d/t s/e. Will try Loratidine 10 mg per day. Hx of chronic sinus issues. Ear exam today WNL, but patient still endorsing diminished hearing of right ear. [id number] Pasquale Lee MD , [facility], [address] [place] [address] 05/25/2018 09:37:52 05/25/2018 10:41:47 Cough 33091846 R05 Influenza 4491160 J11.1 [id number] Vicky Prieto MD , [facility], [address] [place] [address] 07/09/2018 13:25:23 07/10/2018 09:38:46 Backache 419787093 M54.9 add in tylenol 1000 mg three times a daytry heat and pay attention to whether you stiffen up.probabl e Sacroiliit is, expect resolution anotehr 2 weeks. [id number] MIKE Hernandez , [facility], [address] [place] [address] 08/06/2018 08:39:53 08/06/2018 10:04:33 Adult health examination [id number] Z00.00 see Risk Assessment and Lifestyle Change Counseling section above72 y o F seen for disease management PHA, recent labs reviewed, mammogram & colonoscop y are UTD, HCM needs discussed. Counseling [id number] Z71 .9 Depression screening 171 [id number] Z13.89 depression screening tool administer ed, entered into emr, scored and discussed, time greater than 7.5 minutes Benign ess ential hypertension [id number] I10 Blood pressure at goal Mixed hyperlipidemia 267 [id number] E78.2 Cholestero l is at goal. Continue to work on diet and exercise as discussed Pain in throat [id number] R07.0 Will check rapid TC & sent TC to lab as well, pt concerned about reoccurren ce of strep throat. [id number] MIKE Hernandez, [facility], [address] [place] [address] 01/13/2019 09:50:55 01/13/2019 10:37:41 Gastroesophageal reflux disease [id number] K21.9 More s/s of GERD despite Pantoprazo le 20 mg QD. Advised pt to increase Pantoprazo le to 40mg/d (20mg bid) new rx ordered as written below. If no improvemen t by will order abdominal U/S. Plan to f/u in 2wks as scheduled. Abdominal pain [id number] R10.9 Labs ordered as written below. Further treatment pending results. [id number] MIKE Hernadnez, [facility], [address] [place] [address] 01/29/2019 07:17:07 01/29/2019 15:36:43 Benign essential hypertension [id number] I10 Blood pressure at goal. Continue on metoprolol 50 mg/d and lisinopril 40 mg/ d. Mixed hyperlipidemia 267 [id number] E78.2 Cholestero l is at goal. Continue to work on diet and exercise as discussed Gastroesop hageal reflux disease 919206457 K21.9 Improved. Continue with increase dose of pantoprazo le 20 mg twice daily. [id number] MIKE Hernandez, [facility], [address] [place] [address] 03/03/2019 09:08:45 03/03/2019 09:41:14 Dog bite [id number] W54.0XXA Continue on Doxycyclin e & metronidaz ole as prescribed from ED. DSD applied to open area, watch for increased pain, swelling, fever, plan to f/u in 2 d. or sooner prn. Advised to use Tylenol as directed for pain PRN. [id number] MIKE Hernandez, [facility], [address] [place] [address] 03/05/2019 14:02:36 03/05/2019 14:54:03 Dog bite [id number] W54.0XXA Continue on Doxycyclin e & metronidaz ole as prescribed from ED. Watch for increased pain, swelling, fever. Advised to use Tylenol as directed for pain PRN. Small bandaid applied. Follow up as needed. [id number] MIKE Hernandez, [facility], [address] [place] [address] 10/01/2019 10:22:33 10/03/2019 10:14:03 Mixed hyperlipidemia 414750358 E78.2 Cholestero l is at goal Continue on Rosuvastat in 10 mg a day Continue to work on diet and exercise as discussed Essential hypertension 74027742 I10 BP stable at home. Range 120-130/70 -80 Continue on Lisinopril 40 mg/d & Metoprolol succinate ER 50 mg/d Hypothyroidism 20599716 E03.9 TSH-1.7, no med changes made at this time. [id number] MIKE Hernandez, [facility], [address] [place] [address] 01/06/2020 09:30:53 01/07/2020 08:34:10 Adult health examination 968495070 Z00.00 see Risk Assessment and Lifestyle Change Counseling section above75 y o F seen for Virtual PHA, recent labs reviewed, mammogram & colonoscop y are UTD, recent labs reviewed & discussed, HCM needs discussed. Counseling 268518464 Z71 .9 including cardiovasc ular risk reduction counseling Depression screening 171 412382 Z13.89 depression screening tool administer ed, entered into emr, scored and discussed, time greater than 7.5 minutes Screening for alcohol abuse 812833753 Z13.39 Essential hypertension 62422159 I10 BP stable at home. Range 120-130/70 -80 Continue on Lisinopril 40 mg/d & Metoprolol succinate ER 50 mg/d Mixed hyperlipidemia 267 504039 E78.2 Cholestero l is at goal Continue to work on diet and exercise as discussed [id number] MIKE Hernandez, [facility], [address] [place] [address] 07/27/2020 08:25:46 07/28/2020 09:52:25 Essential hypertension 13764093 I10 BP stable at home. Range 116-117/78 Continue on Lisinopril 40 mg/d & Metoprolol succinate ER 50 mg/d Mixed hyperlipidemia 267 950795 E78.2 Cholestero l is at goal. Continue on Rosuvastat in 10 mg/d Continue to work on diet and exercise as discussed Hypothyroidism 83658760 E03.9 TSH-3.27, no med changes made at this time. [id number] MIKE Hernandez, [facility] [address] [place] [address] 09/09/2020 09:42:30 09/09/2020 13:14:11 Hypothyroidism 40803506 E03.9 TSH-3.03, resume taking med-Levoth yroxine 100 mcg/d- 7 d/week. Will recheck in 6 weeks. [id number] MIKE Hernandez, [facility], [address] [place] [address] 02/08/2021 11:29:43 02/08/2021 12:34:42 Adult health examination 830304651 Z00.00 see Risk Assessment and Lifestyle Change Counseling section above75 y o F seen for PHA, recent labs reviewed, mammogram and colonoscop y UTD, recent labs reviewed & discussed, HCM needs discussed. Counseling 963024556 Z71 .9 including cardiovasc ular risk reduction counseling Depression screening 171 037952 Z13.31 depression screening tool administer ed, entered into emr, scored and discussed, time greater than 7.5 minutes Screening for alcohol abuse 833825230 Z13.39 Mixed hyperlipidemia 267 212222 E78.2 Cholestero l is near goal. Triglyceri danita mildy elevated-1 53Continue to work on diet and exercise as discussed Benign ess ential hypertension 4568084 I10 BP not stable. Begin taking amlodipine 2.5mg., continue on Lisinopril 40 mg/d & Metoprolol succinate ER 50 mg/d and f/u in 1 month. [id number] MIKE Hernandez, [facility], [address] [place] [address] 03/01/2021 11:53:24 03/04/2021 15:12:41 Benign essential hypertension 2155319 I10 BP improved. Continue taking amlodipine 2.5mg/d, Lisinopril 40 mg/d & Metoprolol succinate ER 50 mg/d. Pt to f/u as needed. Return in September for disease management . Mixed hyperlipidemia 267 418714 E78.2 Cholestero l is near goal. Triglyceri danita mildy elevated-1 53Continue to work on diet and exercise as discussed Hypothyroidism 10723415 E03.9 [id number] MIKE Hernandez, [facility], [address] [place] [address] 09/13/2021 08:23:37 10/04/2021 10:38:45 Essential hypertension 30719697 I10 BP stable. Continue on Lisinopril 40 mg/d & Metoprolol succinate ER 50 mg/d Mixed hyperlipidemia 267 223594 E78.2 Cholestero l is at goal. LDL-75.6Co ntinue to work on diet and exercise as discussed Hypothyroidism 05665626 E03.9 Recheck TSH in November. [id number] WILLY Oquendo, [facility], [address] [place] [address] 02/13/2022 07:46:56 03/17/2022 10:11:05 Active or passive immunization 682077548 Z23 [id number] MIKE Hernandez, [facility], [address] [place] [address] 03/21/2022 07:57:14 03/21/2022 10:11:13 Adult health examination 023002462 Z00.00 see Risk Assessment and Lifestyle Change Counseling section above76 y o F seen for PHA, mammogram UTD, last colonoscop y was in 2017 w/ 5 y. recall, recent labs reviewed & discussed, HCM needs discussed. Counseling 468788383 Z71 .9 including cardiovasc ular risk reduction counseling Depression screening 171 433118 Z13.31 depression screening tool administer ed, entered into emr, scored and discussed, time greater than 7.5 minutes Screening for alcohol abuse 450513445 Z13.39 Essential hypertension 07793335 I10 BP elevated in office. Has white coat reaction when in office. Continue on Lisinopril 40 mg/d & Metoprolol succinate ER 50 mg/d Screening for malignant neoplasm of colon 159043604 Z12.11 [id number] Jane Briceno DO , [facility], [address] [place] [address] 08/17/2022 08:43:01 08/17/2022 09:26:53 Essential hypertension 69413558 I10 Not at goal, usually high in office. Pt will take at home later today and send in results. If needed will adjust medication s. Mixed hyperlipidemia 267 911538 E78.2 Cholestero l is at goalContin ue to work on diet and exercise as discussed Hypothyroidism 14514294 E03.9 F/u labs. Chronic ki dney disease stage 3 703588328 N18.30 F/u labs. Allergic rhinitis 803234 04 J30.9 Trial of flonase. Discussed that needs to be used daily for at least 7 days to see effect. Continue nikki. [id number] Opal De La Torre MD , [facility], [address] [place] [address] 09/04/2022 11:58:46 09/04/2022 17:15:23 Hypothyroidism 68385676 E03.9 pt advised TSH well within normal rangesx are indicative of hypothyroi d, tsh doesnt indicate that, actually on hyperthyro id endoof normal rangeno indication for dose change [id number] Jane Briceno DO , [facility], [address] [place] [address] 03/01/2023 10:53:12 03/01/2023 15:30:21 Adult health examination 844529925 Z00.00 had mammo todayPts overall health is good. Reviewed labs. Next [place] in 1 year. Depression screening 171 274249 Z13.31 depression screening tool administer ed Screening for alcohol abuse 904892086 Z13.39 Alcohol use screening tool administer ed Counseled by member of primary health care team 360353701 Z71.9 Today we discussed ways to reduce your 10-year cardiovasc ular disease risk. Things that decrease risk for cardiovasc ular events include eating a diet high in fiber (fruits and vegetables ) and low in simple carbohydra lindsey (bread, rice, pasta, alcohol, potatoes), decreasing processed foods, limiting juice and alcohol, limiting saturated fats (butter, ice cream, and cheeses), and adding regular daily activity. Having blood pressure that is <130/80. Having well controlled cholestero l (LDL and triglyceri danita) by eating a healthy diet and taking medication s when necessary. Managing daily stress with meditation or yoga. Depending on your other cardiovasc ular risks your practition er may recommend taking daily aspirin. Screening for disorder 304388581 Z13.89 Today we screened for, reviewed, and discussed ways to help manage depression . Many patients live with symptoms of depression . Tools that can help manage these symptoms include good sleep hygiene, regular daily activity, meditation , and mindfulnes s practices. Having good supports from friends, family and therapists are beneficial . Occasional ly medication s can be used. 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 Hypothyroidism 74046056 E03.9 At goal. 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 Osteopenia 435053133 M85 .80 Edema of l ower extremity 083116760 R60.0 Pt reports mild swelling at home since starting amlodipine in 2020. Trial off amlodipine . [id number] Natividad Taylor MD FP, [facility], [address] [place] [address] 03/21/2023 17:42:24 03/21/2023 19:53:33 Benign essential hypertension 4012603 I10 Discontinu e metoprolol 25mg that you were taking with the metoprolol 50mg and go back to just 50mg/day. Will add diuretic. Take in morning. If increased incontinen ce please let us know. Get blood checked in 2 weeks. If BP good at home, follow-up as sched in few months. If side effects or BP not good, make appointmen t Bereavement 19140407 Z63 .4 Please let us know if we can help [id number] Natividad Taylor MD , [facility], [address] [place] [address] 07/02/2023 12:11:28 07/02/2023 13:16:35 Abdominal pain 89937549 R10.9 Will start with labs and ultrasound . Please double your pantoprazo le to 40mg twice a day and cut back on your etodolac as much as you can [id number] Natividad Taylor MD , [facility], [address] [place] [address] 07/12/2023 09:56:57 07/12/2023 10:40:58 Mixed hyperlipidemia 623335973 E78.2 Pharyngitis 504949446 J0 2.9 Uncertain cause; could try ravindra pot/saline nose spray and see if that helps (postnasal drip?) Abdominal pain 29867284 R10.9 Lets stay the course; continue the higher dose stomach pill and dietary changes. If not resolved at your follow-up, can consult GI. If changes before that (getting worse), let me know Hypercalcemia 93695834 E 83.52 Please stop your supplement s and we can recheck this in future [id number] Natividad Taylor MD , [facility], [address] [place] [address] 08/23/2023 08:40:42 08/23/2023 09:18:53 Abdominal pain 20451925 R10.9 Mild improvemen t but bowels still not normal. Will refer back to Dr. Perkins Allergic rhinitis 976316 04 J30.9 Benign ess ential hypertension 0590515 I10 Blood pressure still not controlled . You did not do well with increased metoprolol . You want to work on exercise and weight. Will recheck at follow-up. Reviewed kidney function tests. Controllin g blood pressure will help your kidneys as well as reduce chance of stroke/hea rt attack [id number] KARINA Anderson , [facility], [address] [place] [address] 11/16/2023 16:50:23 11/21/2023 12:25:32 Low back pain 808211494 M54.50 pt had upsomin appt with Dr Stein physiatry for injection. L SI- will consult with same [id number] Natividad Taylor MD , [facility], [address] [place] [address] 02/11/2024 10:24:39 02/11/2024 11:23:41 Active or passive immunization 568440505 Z23 Osteoarthritis 799419501 M19.90 Reviewed that choices for pain medication include meds like diclofenac , tylenol and opiates. We went over pro's and con's today. You wish to use diclofenac sparingly, perhaps with tylenol to enhance the effects. you are aware that this can irritate the kidneys. Polyneuropathy 46560947 G62.9 Unlikely from diabetes as your A1C has been close to normal x years. I recommend checking a few tests to look for other causes. High hemog lobin A1c level 868463849 R73.09 Discussed with patient that I do not have documentat ion of her dx of diabetes. She may have been well-contr olled on diet x years, but unlikely to get neuropathy from that. Will research further [id number] Natividad Taylor MD , [facility], [address] [place] [address] 04/17/2024 09:07:02 04/17/2024 10:22:26 Adult health examination 592106291 Z00.00 Had covid booster 2023; consider RSV vaccine General Health Maintenanc e-All vaccinatio ns up to date, including recent COVID-19 booster and annual flu shot.-Cont inue regular follow-up with specialist s for dermatolog y, gynecology , and ophthalmol ogy concerns.- Schedule follow-up in 6 months or sooner if needed. Depression screening 171 602435 Z13.31 depression screening tool administer ed Screening for alcohol abuse 421788714 Z13.39 Alcohol use screening tool administer ed Protein electrophoresis outside reference range 330324079 R89.8 we checked this as a potential cause for neuropathy Type 2 svetlana betes mellitus 71411312 E11.9 Acute sinusitis 68217913 J01.90 Symptoms of sinus pressure, pain, and green, bloody nasal discharge for approximat aster 10 days. Unable to use nasal rinse due to burning sensation. Currently using Flonase and Xyzal.-Pre scribe Cephalexin to treat sinus infection. Polyneuropathy 23882865 G62.9 Neuropathy No known cause identified . Recent extensive workup for potential causes of neuropathy , including blood tests for rare diseases, all returned normal.-Or ginna repeat serum protein electropho resis to confirm normal results. Genital li early sclerosus 928360125 L90.0 Lichen SclerosusM anaged with triamcinol one and vaginal estrogen.- Continue current management . Gastroesop hageal reflux disease without esophagitis 786953599 K21.9 GERDAttemp t to reduce pantoprazo le dose unsuccessf ul.-Contin ue pantoprazo le 20mg, two pills twice daily. Benign ess ential hypertension 7475784 I10 Hypertensi onBlood pressure slightly elevated at today's visit.-Con tinue current management with hydrochlor othiazide 25mg and lisinopril 40mg. Mixed hyperlipidemia 267 219292 E78.2 Hyperlipid emiaPatien t requests regular cholestero l checks for self-monit oring.-Con tinue current management with rosuvastat in 10mg. Chronic ki dney disease stage 3 214960549 N18.30 Chronic Kidney DiseaseSta ble kidney function with GFR 42.6, consistent with previous results.-C ontinue current management and monitor kidney function. Health Concerns Section Related Observation LastModified by Organization Detai ls LastModified Time None Recorded Concern Status LastModified by Organization Details LastModified Time None Recorded Advance Directives Directive N: Payers Encounter Date Sequence Insurance Name Policy Number Policy Ordaz Covered Member ID Ordaz Member ID Guarantor Name 07/12/2023 1 [facility] (POS) [id number] Shara Gerber [id number] Shara Gerber 08/23/2023 1 [facility] (POS) [id number] Shara Gerber [id number] Shara Gerber 11/16/2023 1 [facility] (POS) [id number] Shara Gerber [id number] Shara Gerber 02/11/2024 1 [facility] (POS) [id number] Shara Gerber [id number] Shara Gerber 04/17/2024 1 [facility] (POS) [id number] Shara Gerber [id number] Shara Gerber Notes Date Note Type Note Provider Name and Address Organization Details Recorded Time 07/12/2023 text/html F/U ? U/S Abd pain much better. Still happens with raw veggies. But otherwise OK. Still lots of burping. Also loose stools sometimes, up to 3x/day. Now on higher dose pantoprazole 40mg BID. Cut back on etoralac. Can feel arthritis again.ST x 5 days.High calcium; advised cut out supplement. Will recheck. Natividad Taylor MD [address] [place] [address], [phone], [facility] 07/12/2023 15:47:49 08/23/2023 text/html Patient presents for medical management of hypertension and hyperlipidemia.Abd pain improving. Still irregular bowels but not pain like previously. Has seen Dr. Perkins in the past, would like referralChecks BP at home; always <120/80's. Here BP's frequently higherAllergies worse. Stopped Nikki. Taking claritin instead. Also flonase. All year, not seasonal. Wants to see manager of internal audit. Natividad Taylor MD [address] [place] [address], [phone], [facility] 08/23/2023 13:56:18 11/16/2023 text/html pt is here today for R ant thigh pain and post hip and buttocks. . hurts to walk. on going for about 4 days.no known cause. woke up with pain one morning. no trauma, not worsening. no swelling, has appt with Dr Stein/using sulindac for pain KARINA Anderson [address] [place] [address], [phone], [facility] 11/20/2023 21:40:52 02/11/2024 text/html Pt presents for R hip painHas been seen by PS&S and Ortho Interested in flu vaccine Had flare up of her Right hip osteoarthritis. On diclofenac, much better. Wants to continue. Concerned about side effects.S/P knee replacements and subsequent knee surgeries; has restricted motion there, unable to exercise much.bp much better 124/74 several times other doctor offices. In pain today.Believes she has diabetes, does not recall when she got diagnosis, has never been on meds for this. Has glucometer at home; highest glucoses are 140 nonfasting. Further review of chart shows that she was referred to diabetic nutrition years ago (around 2007) and to podiatry for neuropathy and other foot problems also years ago. Natividad Taylor MD [address] [place] [address], [phone], [facility] 02/11/2024 18:07:28 04/17/2024 text/html Risk Assessment and Lifestyle Change Counseling (Medicare)Reported bypatient.Coronary Artery Disease Risk Assessment:Family History of Coronary Artery Disease(Father had an NC); No personal history of diabetes; No history of peripheral vascular disease, AAA, or carotid disease; No personal history of coronary artery disease Breast Cancer Risk Assessment:No family history of breast cancer; No history of breast cancer or dcis Colon Cancer Risk Assessment:No family history of pre cancerous colon polyps or cancer Lung Cancer Risk Assessment:Never smoked Fracture Risk Assessment:No unexplained fracture; No use of corticosteroids; No anti-seizure medication; Normal bone density; Has adequate calcium intake; Taking Vitamin D supplement;Uses proton pump inhibitors on a chronic basis Cognitive/Behavioral Risk Assessment:No personal history of mental illness; No family history of mental illness; Do you or anyone else have concerns about your memory? no; Alcohol use counseled less than 7.5 minutes; Reviewed depression screening less than 7.5 minutes Safety Risk Assessment:Has grab bars in bathroom; Has rails on steps; No falls; No evidence of abuse/neglect; Do you feel safe in your current relationship?YES; Have you ever been a victim of physical/emotional/se xual abuse?NO Functional Status:Patient does not have trouble hearing the television or radio when others do not.; Patient does not have to strain or struggle to hear/understand conversations; Patient does not need help with preparing meals, transportation, shopping, taking medicine, managing finances, or other activities of daily living.; Patient does not have visual loss that interferes with daily activities;Lives alone;Patient was unsteady or takes longer than 30 seconds during the timed get up and go test.; Patient reports no falls in the past 6 months. Diet:Counseled about appropriate portion size; Counseled about eating a diet low in trans and saturated fats and high in fiber, fruits and vegetables; Counseled about appropriate calcium intake and good dietary sources of calcium.; Counseled about the importance of maintaining a positive calcium balance and taking 1000 iu Vitamin D daily.; Counseled about decreasing carbohydrates; Counseled about decreasing salt in diet; Discussed the value of a Mediterranean diet , and eating more fruits and vegetables; regular diet Exercise counseling:Discussed the importance of daily physical activity; Discussed the importance of weight bearing exercise; walking programs and weight 5 days per week Safety:Counseled about protecting skin from the sun and lowering the risk of skin cancer; Counseled about avoiding excessive and unsafe alcohol intake; Counseled about use of helmets for high velocity activiities; Counseled about home safety including use of smoke detectors, CO detectors, keeping home water temperature less than 120; Counseled about use of seat belts; Counseled about fall risk from throw rugs and the need for hand rails on steps and in bath; An audit alcohol screening was performed and scored. Patient was asked about alcohol use. Advised about risks of alcohol. Personal risk was assessed. Patient agreed to plan and given information about available resources if needed. Discussion including screening and scoring greater than 7.5 minutes.. Pt presents for wvPatient informed and consents to use of AI assisted recording to improve documentation of visitColonoscopy: 2023 - no furtherConcerns:- ? sinus infection; ongoing about 10 days, green bloody mucus- hypertensive in office, at home bp 115-132/64-81-------- OADbp from laura 120's/60'sCheck sinus infection.pancreatic cancer sister History of Present IllnessThe patient presents for an annual physical exam. The patient has a history of elevated blood pressure readings, with high systolic and normal diastolic pressures. She monitors her blood pressure during activities such as exercising or cleaning. Current medications include hydrochlorothiazide, lisinopril, and metoprolol. She suspects a sinus infection, experiencing symptoms for about ten days. Initially thought to be allergies, she later noticed pressure and pain, especially when bending over. Nasal discharge is green and bloody, and nasal rinse causes burning. She is using Flonase and Xyzal for symptom management. No hearing problems are reported. She has been diagnosed with neuropathy, which is not attributed to diabetes as her diabetes is well-controlled. Various tests have been conducted to rule out other causes, with mostly normal results. She has a history of lichen sclerosus, managed with estrogen and triamcinolone, and is under the care of a tag writer for a scalp condition treated with betamethasone lotion. She is on multiple medications including pantoprazole, rosuvastatin, and thyroid medication. She mentions difficulty regulating thyroid levels and is scheduled for testing next Sunday. Family history includes a sister recently diagnosed with pancreatic cancer. She also mentions her son's girlfriend's mother is terminally ill with cancer. She does not smoke, drink alcohol, or use marijuana. She volunteers regularly and has a healthcare proxy in place. Natividad Taylor MD [address] [place] [address], [phone], [facility] 04/18/2024 16:44:42 OBGyn Episode No OBEpisode recorded.
--- OUTSIDE RECORDS SUMMARY | 2024-06-30 16:27 | XMS_ITS ---
Author Organization [facility] Address [address] [place] [phone] Care Team Providers Care Roofing Technician Name Role Phone Brandon POPE, [place] Primary Care Provider Unava ilYohana Dennis Unavailable [phone] REASON FOR VISIT rs from 10/14/24 Encounters Encounter Location Date Provider Diagnosis [address] [address] 06/26/[address] Plan Of Treatment Next Appt Details Provider Name:Yohana camp, 08/20/2024 09:00:00 AM, [address] [place] [address], [phone], Provider Name:Yohana camp, 10/17/2024 10:00:00 AM, [address] [place] [address], [phone], Progress Notes * ZABRINAShara TDOB:[birth year] (78 yo F)Acc No.[id number]:06/26/2024 Patient:?Shara EGRBER :1945???Age:78 Y???Sex:Female Address:[address] [place] [address], [phone] * true * Date:? Generated for Printi ng/Faxing/eTransmitting on:?06/30/2024 04:27 PM EST
== END 2024-06-30 14:50 | disposition home or self-care (01) ==
PROVIDERS: PCP Family Medicine; Referring Provider Physical Medicine & Rehabilitation; Visit Provider Anesthesiology
DX: M48.061 Spinal stenosis, lumbar region without neurogenic claudication (principal); G89.4 Chronic pain syndrome; M47.816 Spondylosis without myelopathy or radiculopathy, lumbar region
CPT/HCPCS: 99204

== ENCOUNTER → 2024-06-30 14:17 | Outpatient (BNVA) | payer OTHER, SELFPAY | PROVIDERS: PCP Family Medicine; Referring Provider Physical Medicine & Rehabilitation; Visit Provider Anesthesiology | DX: M48.061 Spinal stenosis, lumbar region without neurogenic claudication (principal); G89.4 Chronic pain syndrome; M47.816 Spondylosis without myelopathy or radiculopathy, lumbar region | CPT/HCPCS: 99202 ==

== ENCOUNTER 2024-08-11 11:34 | Outpatient (AMB) | payer OTHER, SELFPAY ==
--- NOTE | 2024-08-11 11:36 | A.OFFVIS_ITS ---
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 Required: No Allergies amoxicillin [AMOXICILLIN] Allergy (Unknown, Verified 08/11/24 11:40) RASH sumatriptan [From IMITREX] Allergy (Unknown, Verified 08/11/24 11:40) TINGLING/NUMBNESS clavulanic acid [From AUGMENTIN] Adverse Reaction (Unknown, Verified 08/11/24 11:40) NAUSEA & VOMITING hydrochlorothiazide [From Maxzide] Adverse Reaction (Unknown, Verified 08/11/24 11:40) NAUSEA & VOMITING sulfamethoxazole [From BACTRIM] Adverse Reaction (Unknown, Verified 08/11/24 11:40) NAUSEA & VOMITING triamterene [From Maxzide] Adverse Reaction (Unknown, Verified 08/11/24 11:40) NAUSEA & VOMITING trimethoprim [From BACTRIM] Adverse Reaction (Unknown, Verified 08/11/24 11:40) NAUSEA & VOMITING ENVIRONMENTAL Allergy (Unknown, Uncoded 08/11/24 11:40) RUNNY NOSE/STUFFINESS OCG DYE Allergy (Unknown, Uncoded 08/11/24 11:40) PASSED OUT Medication List - Last Reconciled 08/11/24 by Christa Ortiz LPN desonide 0.05% topical levocetirizine mg PO DAILY levothyroxine mcg PO lisinopril mg PO DAILY metoprolol succinate ER mg PO DAILY pantoprazole mg PO rosuvastatin mg PO vibegron (Gemtesa) mg PO DAILY HPI HPI Lower back pain/radha from07/18: Details: History of Present Illness The patient is a 78-year-old female presenting with chronic back pain for evaluation. The back pain, predominantly on the left side, has persisted over nine years, exacerbated by walking and standing, but relieved by sitting. Prior treatment involved sacroiliac and epidural injections, offering transient relief. MRI findings reveal lumbar spinal stenosis with hypertrophic ligamentum flavum formation in the lumbar spine, especially at L2-3, L3-4, and L4-5. The patient's physical function is also impacted by arthrosis in the knees, restricting mobility. She seeks non-surgical pain management options and has been referred by Dr. Gilman for consideration of MILD procedure. Pain Description - Pain onset: Approximately nine years ago. - Quality and Character: Chronic, deeper pain, not responsive to pressure. - Location: Lower back, more to the left. - Radiation: No radiation to legs, primarily localized. - Exacerbating Factors: Standing, walking. - Relieving Factors: Sitting, leaning forward while walking. - Interference: Significant impact on daily activities, especially mobility. Physical Exam - Appears afebrile. - Alert and oriented. - Mood and affect appropriate. - Follows and participates in conversation appropriately. - Respiratory effort is unlabored. Results - MRI Pelvis: Lumbar spinal stenosis with significant ligamentum flavum hypertrophy at L2-3, L3-4, and L4-5. Pain Management - Affect: Chronic pain impacting mobility and daily functioning. - Analgesia: Previous sacroiliac joint injections and epidural steroid injections; transient relief noted. - Adverse Effects: Thyroid function fluctuations reportedly linked to steroid injections. - Activities of Daily Living: Difficulty with standing and walking; relief while sitting. - Aberrant Drug Related Behaviors: None reported. [facility] Social History (Updated 06/30/24 @ 14:26 by Asya Castro) Alcohol intake: never Patient Tobacco Use Status: Never used Tobacco Physical Exam Vital Signs: Last Vital Signs Pulse 95 08/11/24 11:38 Resp 16 08/11/24 11:38 BP 167/69 H 08/11/24 11:38 Pulse Ox 94 08/11/24 11:38 Oxygen Delivery Method Room Air 08/11/24 11:38 BMI result Body Mass Index 30.5 Assessment & Plan Assessment & Plan (1) Spinal stenosis, lumbar region with neurogenic claudication: Code(s): M48.062 - Spinal stenosis, lumbar region with neurogenic claudication Category: Medical Plan Plan I agree with MILD to address the chronic low back pain secondary to lumbar spinal stenosis with neurogenic claudication. This procedure aims to alleviate nerve compression caused by ligament buildup in the lumbar spine. The patient prefers non-surgical approaches, and the procedure's benefits and process were explained. We will pursue insurance approval, aiming to schedule within a few weeks. Further steps include initiation of physical therapy for core strengthening pre-and post-procedure. Future considerations involve a peripheral nerve stimulator for unresolved facet joint pain. Patient was informed and verbally consented to the use of an ambient scribe for clinic note documentation during this visit. Discussion Notes I explained the current radiographic findings indicating callus-related lumbar stenosis and discussed the minimally invasive lumbar decompression procedure as a viable non-surgical option. The patient was informed of the risks and benefits, including potential symptom improvement and quick recovery time. We reviewed the expected timeframe for insurance approval and subsequent scheduling. I emphasized the importance of core strengthening exercises as complementary therapy. As we proceed with the mild procedure, follow-up will be arranged to evaluate outcomes and adjust further management. The patient agreed to this approach, understanding the procedural details and anticipated recovery. Patient Instructions - Await contact for scheduling the lumbar decompression procedure. - Prepare for possible physical therapy to enhance recovery. - Monitor pain symptoms and report any changes. - Avoid activities that exacerbate pain; rest as needed. - Ensure availability for follow-ups post-procedure for assessment. - Seek care sooner if worsening symptoms or new issues arise. Coding Level of Care Code New Pt Level 4 (75153) Diagnoses Spinal stenosis, lumbar region with neurogenic claudication M48.062
[2024-08-11 11:38] VITALS: BP 167/69; PULSE 95; RESP 16; O2SAT 94; BMI 30.5
--- OUTSIDE RECORDS SUMMARY | 2024-08-11 14:00 | XMS_ITS ---
Author Organization [facility] Address [address] [place] [address] Care Team Providers Care Bed Laster Name Role Phone Brandon POPE, [place] Primary Care Provider Yohana Barton Unavailable [phone] Allergies Allergen (clinical drug ingredient) Drug/Non Drug [...] primary osteoarthritis of the ankle and/or foot (528070023) Arthritis of joint of lesser toe, right (M19.071) Active confirmed Vital Signs Blood pressure systolic 116 mm Hg 04/29/20 Blood pressure diastolic 72 mm Hg 024 Height 5ft 5in in 04/29/2024 Weight 182 lbs 04/29/2024 BMI 30.28 kg/m2 04/29/2024 Encounters Encounter Location Date Provider Diagnosis [facility] [address] [address] 04/29/[address] Type 2 diabetes mellitus [...] Reason: Provider Name:Yohana camp, 08/20/2024 09:00:00 AM, [address] [place] [address], [phone], Provider Name:Yohana camp, 10/17/2024 10:00:00 AM, [address] [place] [address], [phone], Procedure Notes * Category Sub-Category Detail Notes [...] of a nail nipper and/or dremel-type surface grinder tender, to a more viable healthy nail plate [...] to maintain effectiveness in symptomatic relief - 21990 Keratoma Treatment Parring or Cutting o f [...] instrumentation by the physician of record - 50164 Progress Notes * Shara GERBER TDOB:[birth year] (78 yo F)Acc No.[id number]:04/29/2024 Progress Notes Patient:?Shara GERBER Provider:?Yohana Lane DPM :1945???Age:78 Y???Sex:Female D ate:04/29/2024 Address:[address] [place] [address], [facility] [phone] Pcp:Natividad Taylor MD Subjective: * Chief Complaints: [...] admitted to [facility] for dizzy spells. 04/22/2014Injection in SI joint- [facility] 11/26/2018[facility] [...] housework. ?Marital status: . ?Occupation: Retired-[employer]. * Medications:?TakingXyzal Vol boris 1 % Gel [...] 5.6 * Examination: ???Ophthalmology Referral: ?DIABETES EYE EXAM?Procedure Performed:?Yes ?Date of Exam Performed?09/05/2023 ?Findings of Diabetic Eye Exam:?no retinopathy?Neurological: ?SENSORY:?Neurological exam demonstrates reduced sharp/dull pin prick [...] for office visit today.?ORIENTED:?person, place, and time.?FOOT EXAM:?Lower Extremity Neurological Exam performed:?Yes ?Visual exam of foot performed:?Yes ?Date?04/29/2024 ?Sensory testing performed:?sensations diminished??? Assessment: * Assessment: 1.?Other hammer toe(s) (acqu [...] of a nail nipper and/or dremel-type surface grinder tender, to a more viable healthy nail plate [...] to maintain effectiveness in symptomatic relief - 42784.?Keratoma Treatment:?Parring or Cutting of Benign Hyperkeratotic Lesion(s)?(-57) [...] instrumentation by the physician of record - 90893.? * Procedure Codes:?82864 DEBRI DE NAIL, 6 OR MORE, Modifiers: XS 03575 TRIM SKIN LESIONS, OVER 4, Modifiers: XS [...] Lane DPM Date:? Generated for Isai leonard/Jaime/Cecilia on:?08/11/2024 02:00 PM EDT History and Physical Notes * HPI (History [...] 2, 3, B/L , 5, Left Orthopedic FOOTWEAR EVALUATION: good condit ion, exhibit proper fit and accommodation for pedal [...]
--- OUTSIDE RECORDS SUMMARY | 2024-08-11 14:00 | XMS_ITS ---
Author Organization [facility] Address [address] [place] [address] Care Team Providers Care Plant Maintenance Engineer Name Role Phone Brandon POPE, [place] Primary Care Provider Yohana Barton Unavailable [phone] Allergies Allergen (clinical drug ingredient) Drug/Non Drug [...] an other tobacco user? No Vital Signs Blood pressure systolic 118 mm Hg 06/25/19 25 Blood pressure diastolic 72 mm Hg 025 Height 5ft 5in in 06/25/2024 Weight 182 lbs 06/25/2024 BMI 30.28 kg/m2 06/25/2024 Encounters Encounter Location Date Provider Diagnosis [facility] [address] [address] 06/25/[address] Type 2 diabetes mellitus [...] Reason: Provider Name:Yohana camp, 08/20/2024 09:00:00 AM, [address] [place] [address], [phone], Provider Name:Yohana camp, 10/17/2024 10:00:00 AM, [address] [place] [address], [phone], Procedure Notes * Category Sub-Category Detail Notes [...] use of a nail nipper and/or dremel-type refractory grinder operator, to a more viable healthy nail plate [...] to maintain effectiveness in symptomatic relief - 29181 Keratoma Treatment Parring or Cutting o f [...] instrumentation by the physician of record - 79334 Progress Notes * Shara GERBER TDOB:[birth year] (78 yo F)Acc No.[id number]:06/25/2024 Progress Notes Patient:?Shara GERBER Provider:?Yohana Lane DPM :1945???Age:78 Y???Sex:Female D ate:06/25/2024 Address:[address] [place], [place] [phone] Pcp:Natiivdad Taylor MD Subjective: * Chief Complaints: * [...] for dizzy spells. 12/17/2014Injection in SI joint- [facility] 11/26/2018[facility]- Fall [...] housework. ?Marital status: . 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 * Medications:?TakingXyzal Vol boris 1 % [...] Exam performed:?Yes ?Visual exam of foot performed:?Yes ?Date?06/25/2024 ?Sensory testing performed:?sensations diminished ?Footwear Evaluation?Footwear Evaluation performed:?Yes??? Assessment: * Assessment: 1.?Type 2 diabetes mellitus [...] use of a nail nipper and/or dremel-type refractory grinder operator, to a more viable healthy nail plate [...] to maintain effectiveness in symptomatic relief - 25151.?Keratoma Treatment:?Parring or Cutting of Benign Hyperkeratotic Lesion(s)?(-57) [...] instrumentation by the physician of record - 74641.? * Procedure Codes:?98077 DEBRI DE NAIL, 6 OR MORE, Modifiers: XS 47266 TRIM SKIN LESIONS, OVER 4, Modifiers: XS [...] * Sign off status: Completed true * Provider:Uli Lane DPM Date:? Generated for Isai leonard/Jaime/Cecilia [...]
--- OUTSIDE RECORDS SUMMARY | 2024-08-11 14:02 | XMS_ITS ---
Author Organization [facility] Address [address] [place] [address] Care Team Providers Care Immigration Paralegal Name Role Phone Brandon POPE, [place] Primary Care Provider Unava ilYohana Dennis Unavailable [phone] REASON FOR VISIT rs from 10/14/24 Encounters Encounter Location Date Provider Diagnosis [address] [address] 06/26/[address] Plan Of Treatment Next Appt Details Provider Name:Yohana camp, 08/20/2024 09:00:00 AM, [address] [place] [address], [phone], Provider Name:Yohana capm, 10/17/2024 10:00:00 AM, [address] [place] [address], [phone], Progress Notes * ZABRINAShara TDOB:[birth year] (78 yo F)Acc No.[id number]:06/26/2024 Patient:?Shara GERBER :1945???Age:78 Y???Sex:Female Address:[address] [place] [address], [phone] * true * Date:? Generated for Printi ng/Faxing/eTransmitting on:?08/11/2024 02:01 PM EDT
--- OUTSIDE RECORDS SUMMARY | 2024-08-11 14:02 | XMS_ITS | Data Portability ---
Author Organization [facility], [facility] Address [address] [place] [address] Care Team Providers Care Vice President Of Product Marketing Name Role Phone NGUYỄN ZHANG Phys. Med. & Rehab TIESHA CASTELLON Exercise Instruct SHAHRIAR CARBALLO Urologist HELADIO CAREY Orthopedic Surgeon [phone] LORETO ESCOBAR Rn Corrections JORGE PLEITEZ Personnel Adviser NATIVIDAD TAYLOR Primary Care Provider [facility] [phone] Assessment Encounter Date Assessment Date Assessment LastModified by Organization Details LastModified Time 07/07/2024 07/07/2024 Report of a virtual visit. Patient was seen on 07/03 for 3-4 days of upper respiratory illness and worsening cough. She was treated for pneumonia with antibiotics, but unfortunately has not improved. She is still complaining of cough, chest congestion, and a headache, which has gradually worsened. We reviewed her x-ray report which was officially read as normal. The patient is concerned that her symptoms have persisted or progressed. Assessment-older patient with persistent if not worsening respiratory symptoms and headache. This would seem to fit with a viral syndrome, but I do not feel comfortable assessing her over the phone. We will set her up with an office visit DIDI to review her symptoms and person, and consider a repeat chest x-ray if symptoms warrant. She is comfortable with this plan. [email or web address] Not available 07/07/2024 14:35:06 07/22/2024 07/22/2024 We reviewed your chronic medical conditions and updated your plan for management. Please review instructions below. We have discussed your personal goals and discussed how to reach your goals. Please reach out to us via the Portal or phone if you have questions about your chronic conditions or if you or your caregivers require assistance in meeting your goals. Please visit our website [employer] for more patient resources. As part of your care plan, we will help coordinate your ongoing medical needs, arrange for durable medical equipment, renew prescriptions and necessary prior authorizations, facilitate getting referrals and collaborating with specialist, referrals for VNA services. [email or web address] Not available 07/22/2024 10:14:18 Plan of Treatment Reminders Order Date Submit Date Provider Last Modified By Organization Details Last Modified Time Details Appointments Medical Manageme nt 2024 10:00A M Natividad Taylor MD Not available Not available Not available Wellness Visit 2025 10:15A M Natividad Taylor MD Not available Not available Not available Lab CBC [address] [facility], [address] [place] [address], [id number], 07/18/2024 10:09:09 C-reacti ve protein, quantita tive, serum or plasma [address] [facility], [address] [place] [address], [id number], 07/18/2024 10:09:09 CBC 2024 025 [facility], [address] [place] [address], [id number], 07/15/2024 12:28:35 C-reacti ve protein, quantita tive, serum or plasma 2024 025 [facility], [address] [place] [address], [id number], 07/15/2024 16:10:24 BMP, serum or plasma 2024 025 [facility], [address] [place] [address], [id number], 07/15/2024 16:10:23 influenz a virus A + B + SARS-CoV -2 (COVID19 ) Ag panel, rapid IA, upper respirat ory specimen 2024 025 [facility], [address] [place] [address], [id number], 07/08/2024 10:14:03 CBC 2024 025 [facility], [address] [place] [address], [id number], 07/08/2024 12:35:00 BMP, serum or plasma 2024 025 [facility], [address] [place] [address], [id number], 07/09/2024 15:19:26 C-reacti ve protein, quantita tive, serum or plasma 2024 025 [facility], [address] [place] [address], [id number], 07/09/2024 15:19:27 Referral None recorded . Procedures None recorded . Surgeries None recorded . 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 2024 025 [facility], [address] [place], [address], 07/23/2024 10:09:54 XR, chest, 2 view 2024 025 [facility] (Imaging), [address], [place], [place], [address], 07/15/2024 10:28:40 Medication Orders benzonat ate 100 mg capsule 2024 025 [facility], [address] [place], [address], 07/18/2024 10:09:10 predniso ne 20 mg tablet 2024 025 [facility] [address] [place], [address], 07/15/2024 09:52:23 codeine 10 mg-guaif enesin 100 mg/5 mL oral liquid 2024 025 [email or web address] [facility]2024, [address] [place], [address], 07/18/2024 09:29:46 Wixela Inhub 100 mcg-50 mcg/dose powder for inhalati on 2024 025 [facility] [address] [place], [address], 07/08/2024 10:24:11 albutero l sulfate HFA 90 mcg/actu ation aerosol inhaler 2024 025 [facility] [address] [place], [address], 07/08/2024 10:24:12 Patient TargetsNo targets recorded. Patient Instructions Encounter Date Encounter Id Patient Instructions Last Modified By Organization Details Last Modified Time 07/22/2024 [id number] General Health Maintenance Discussed RSV vaccine. Advised to consider post-recovery. They are pro-vaccine and acknowledge potential benefits. - Consider RSV vaccination after recovery from current illness. Follow-up Scheduled follow-up on October 27 for routine care. Additional follow-up based on test results. Informed about discussion of abnormal findings via phone or appointment. - Maintain follow-up appointment on October 27. - Discuss any abnormal findings from upcoming tests via phone or additional appointment if necessary. Not available 07/23/2024 07:24:30 Reason for Referral None Reported. Results Created Date Observation Date Name Description Value Unit Range Abnormal Flag Note LastModifiedBy Organization Detail LastModifiedTime 07/09/19 25 07/08/2024 POC FLU/S ARS flu A POC NEGATI VE Not Available [facility] [address] [place], [address], 07/08/2024 10:14:03 07/09/19 25 07/08/2024 POC FLU/S ARS flu B POC NEGATI VE Not Available [facility] [address] [place] [address], [address], 07/08/2024 10:14:03 07/09/19 25 07/08/2024 POC FLU/S ARS sars POC NEGATI VE Not Available [facility] [address] [place] [address], [address], 07/08/2024 10:14:03 07/09/19 25 07/08/2024 CBC WBC 11.35 K/? ? ?L 3.98-1 0.04 high Not Available [address], [address], 07/08/2024 12:35:00 07/09/19 25 07/08/2024 CBC RBC 4.12 M/? ? ?L 3.93-5 .22 Not Available [address], [address], 07/08/2024 12:35:00 07/09/19 25 07/08/2024 CBC HGB 12.8 g/dL 11.2-1 5.7 Not Available [address], [address], 07/08/2024 12:35:00 07/09/19 25 07/08/2024 CBC HCT 38.5 % 34.1-4 4.9 Not Available [address], [address], 07/08/2024 12:35:00 07/09/19 25 07/08/2024 CBC MCV 93.4 fL 79.4-9 4.8 Not Available [address], [address], 07/08/2024 12:35:00 07/09/19 25 07/08/2024 CBC MCH 31.1 pg 25.6-3 2.2 Not Available [address], [address], 07/08/2024 12:35:00 07/09/19 25 07/08/2024 CBC MCHC 33.2 g/dL 32.2-3 5.5 Not Available [address], [address], 07/08/2024 12:35:00 07/09/19 25 07/08/2024 CBC plt 386 K/? ? ?L 182-36 9 high Not Available [address], [address], 07/08/2024 12:35:00 07/09/1907/08/2024 CBC MPV 10.1 fL 9.4-12 .3 Not Available [address], [address], 07/08/2024 12:35:00 07/09/19 25 07/08/2024 CBC neut% 76.2 % 34.0-7 1.1 high Not Available [address], [address], 07/08/2024 12:35:00 07/09/1907/08/2024 CBC neut# 8.65 1.56-6 .13 high Not Available [address], [address], 07/08/2024 12:35:00 07/09/19 25 07/08/2024 CBC lymph % 9.0 % 19.3-5 1.7 low Not Available [address], [address], 07/08/2024 12:35:00 07/09/19 25 07/08/2024 CBC lymph # 1.02 K/? ? ?L 1.18-3 .74 low Not Available [address], [address], 07/08/2024 12:35:00 07/09/1907/08/2024 CBC mono% 8.5 % 4.7-12 .5 Not Available [address], [address], 07/08/2024 12:35:00 07/09/1907/08/2024 CBC mono# 0.96 0.24-0 .56 high Not Available [address], [address], 07/08/2024 12:35:00 07/09/1907/08/2024 CBC eo% 4.3 % 0.7-5. 8 Not Available [address], [address], 07/08/2024 12:35:00 07/09/1907/08/2024 CBC eo# 0.49 0.04-0 .36 high Not Available [address], [address], 07/08/2024 12:35:00 07/09/1907/08/2024 CBC baso% 0.4 % 0.1-1. 2 Not Available [address], [address], 07/08/2024 12:35:00 07/09/1907/08/2024 CBC baso# 0.05 0.00-0 .08 Not Available [address], [address], 07/08/2024 12:35:00 07/09/1907/08/2024 CBC RDW-CV 12.1 % 11.7-1 4.4 Not Available [address], [address], 07/08/2024 12:35:00 07/09/1907/08/2024 CBC Ig% 1.600 % 0.000- 1.500 high Ig % >0.5 Indic ates possi ble Left Shift Not Available [address], [address], 07/08/2024 12:35:00 07/09/19 25 07/08/2024 CBC Ig# 0.180 0.000- 0.093 high Not Available [address], [address], 07/08/2024 12:35:00 07/09/19 25 07/08/2024 CBC NRBC% 0.0 % 0.0-0. 2 Not Available [address], [address], 07/08/2024 12:35:00 07/09/1907/08/2024 CBC NRBC# 0.000 0.000- 0.012 Not Available [address], [address], 07/08/2024 12:35:00 07/09/1907/09/2024 BASIC METAB OLIC PANEL glucose 89 mg/dL 70-100 Not Available [address], [address], 07/09/2024 15:19:26 07/09/19 25 07/09/2024 BASIC METAB OLIC PANEL BUN 30 mg/dL 7-18 high Not Available [address], [address], 07/09/2024 15:19:26 07/09/19 25 07/09/2024 BASIC METAB OLIC PANEL creatinine 1.2 mg/dL 0.8-1. 3 Not Available [address], [address], 07/09/2024 15:19:26 07/09/19 25 07/09/2024 BASIC METAB OLIC PANEL B/C 25.0 ratio Not Available [address], [address], 07/09/2024 15:19:26 07/09/19 25 07/09/2024 BASIC METAB OLIC PANEL GFR 46.9 mL/mi n abnormal >=60m L/min - Sary l or midly reduc ed <60mL /min- Decre ased kidne y funct ion <15mL /min - Kidne y failu re Verdin y Medic al Group calcu lates estim ated Glome rular Filtr ation Rate (eGFR ) using the Chron ic Kidne y Disea se Epide miolo gy Colla borat ion (CKD- EPI) Equat ion (Inke r et. al 2020) as recom mari d by the Natio nal Kidne y Found ation . eGFR is based on age, serum creat inine , and sex. CKD-E PI does not calcu late eGFR by race, does not apply to child jose antonio (age <18 years ), and shoul d not be used in pregn sintia. Not Available [address], [address], 07/09/2024 15:19:26 07/09/19 25 07/09/2024 BASIC METAB OLIC PANEL sodium 136 mmol/ L 136-14 5 Not Available [address], [address], 07/09/2024 15:19:26 07/09/19 25 07/09/2024 BASIC METAB OLIC PANEL potassium 4.4 mmol/ L 3.5-5. 1 Not Available [address], [address], 07/09/2024 15:19:26 07/09/19 25 07/09/2024 BASIC METAB OLIC PANEL chloride 98 mmol/ L 96-107 Not Available [address], [address], 07/09/2024 15:19:26 07/09/19 25 07/09/2024 BASIC METAB OLIC PANEL anion gap 8.9 5.0-15 .0 Not Available [address], [address], 07/09/2024 15:19:26 07/09/19 25 07/09/2024 BASIC METAB OLIC PANEL CO2 29 mmol/ L 21-32 Not Available [address], [address], 07/09/2024 15:19:26 07/09/19 25 07/09/2024 BASIC METAB OLIC PANEL calcium 10.6 mg/dL 8.5-10 .3 high CWP=C onsis tent with previ ous. Not Available [address], [address], 07/09/2024 15:19:26 07/09/19 25 07/09/2024 C-SOSA CTIVE PROTE IN (RCRP ) C-reactive protein (rcrp) 84.5 mg/dL 0.5-9. 0 high Not Available [address], [address], 07/09/2024 15:19:27 07/16/19 25 07/15/2024 CBC WBC 14.70 K/? ? ?L 3.98-1 0.04 high Not Available [address], [address], 07/15/2024 12:28:35 07/16/19 25 07/15/2024 CBC RBC 4.14 M/? ? ?L 3.93-5 .22 Not Available [address], [address], 07/15/2024 12:28:35 07/16/19 25 07/15/2024 CBC HGB 13.0 g/dL 11.2-1 5.7 Not Available [address], [address], 07/15/2024 12:28:35 07/16/19 25 07/15/2024 CBC HCT 38.9 % 34.1-4 4.9 Not Available [address], [address], 07/15/2024 12:28:35 07/16/19 25 07/15/2024 CBC MCV 94.0 fL 79.4-9 4.8 Not Available [address], [address], 07/15/2024 12:28:35 07/16/19 25 07/15/2024 CBC MCH 31.4 pg 25.6-3 2.2 Not Available [address], [address], 07/15/2024 12:28:35 07/16/19 25 07/15/2024 CBC MCHC 33.4 g/dL 32.2-3 5.5 Not Available [address], [address], 07/15/2024 12:28:35 07/16/19 25 07/15/2024 CBC plt 411 K/? ? ?L 182-36 9 high Not Available [address], [address], 07/15/2024 12:28:35 07/16/19 25 07/15/2024 CBC MPV 9.9 fL 9.4-12 .3 Not Available [address], [address], 07/15/2024 12:28:35 07/16/19 25 07/15/2024 CBC neut% 74.9 % 34.0-7 1.1 high Not Available [address], [address], 07/15/2024 12:28:35 07/16/19 25 07/15/2024 CBC neut# 11.02 1.56-6 .13 high Not Available [address], [address], 07/15/2024 12:28:35 07/16/19 25 07/15/2024 CBC lymph % 11.2 % 19.3-5 1.7 low Not Available [address], [address], 07/15/2024 12:28:35 07/16/19 25 07/15/2024 CBC lymph # 1.64 K/? ? ?L 1.18-3 .74 Not Available [address], [address], 07/15/2024 12:28:35 07/16/19 25 07/15/2024 CBC mono% 7.9 % 4.7-12 .5 Not Available [address], [address], 07/15/2024 12:28:35 07/16/19 25 07/15/2024 CBC mono# 1.16 0.24-0 .56 high Not Available [address], [address], 07/15/2024 12:28:35 07/16/19 25 07/15/2024 CBC eo% 3.9 % 0.7-5. 8 Not Available [address], [address], 07/15/2024 12:28:35 07/16/19 25 07/15/2024 CBC eo# 0.57 0.04-0 .36 high Not Available [address], [address], 07/15/2024 12:28:35 07/16/19 25 07/15/2024 CBC baso% 0.5 % 0.1-1. 2 Not Available [address], [address], 07/15/2024 12:28:35 07/16/19 25 07/15/2024 CBC baso# 0.08 0.00-0 .08 Not Available [address], [address], 07/15/2024 12:28:35 07/16/19 25 07/15/2024 CBC RDW-CV 12.5 % 11.7-1 4.4 Not Available [address], [address], 07/15/2024 12:28:35 07/16/19 25 07/15/2024 CBC Ig% 1.600 % 0.000- 1.500 high Ig % >0.5 Indic ates possi ble Left Shift Not Available [address], [address], 07/15/2024 12:28:35 07/16/19 25 07/15/2024 CBC Ig# 0.230 0.000- 0.093 high Not Available [address], [address], 07/15/2024 12:28:35 07/16/19 25 07/15/2024 CBC NRBC% 0.0 % 0.0-0. 2 Not Available [address], [address], 07/15/2024 12:28:35 07/16/19 25 07/15/2024 CBC NRBC# 0.000 0.000- 0.012 Not Available [address], [address], 07/15/2024 12:28:35 07/16/19 25 07/15/2024 HGB A1C hemoglobin A1C 6.1 % 4.8-6. 0 high Goal: <7% in Patie nts with Diabe lindsey An A1c betwe en 5.7-6 .4% is ident ified as pre-d iabet es and sugge sts risk for progr essio n to diabe lindsey Two a1c value s of 6.5% or highe r is consi stent with a diagn osis of diabe lindsey but may need furth er confi rmati on Not Available [address], [address], 07/15/2024 14:05:12 07/16/19 25 07/15/2024 HGB A1C estimated average glucose 128.4 mg/dL Not Available [address], [address], 07/15/2024 14:05:12 07/16/19 25 07/15/2024 ESR sed rate 54.0 0.0-15 .0 high Not Available [address], [address], 07/15/2024 15:12:23 07/16/19 25 07/15/2024 BASIC METAB OLIC PANEL glucose 106 mg/dL 70-100 high Not Available [address], [address], 07/15/2024 16:10:23 07/16/19 25 07/15/2024 BASIC METAB OLIC PANEL BUN 27 mg/dL 7-18 high Not Available [address], [address], 07/15/2024 16:10:23 07/16/19 25 07/15/2024 BASIC METAB OLIC PANEL creatinine 1.2 mg/dL 0.8-1. 3 Not Available [address], [address], 07/15/2024 16:10:23 07/16/19 25 07/15/2024 BASIC METAB OLIC PANEL B/C 22.5 ratio Not Available [address], [address], 07/15/2024 16:10:23 07/16/19 25 07/15/2024 BASIC METAB OLIC PANEL GFR 46.9 mL/mi n abnormal >=60m L/min - Sary l or midly reduc ed <60mL /min- Decre ased kidne y funct ion <15mL /min - Kidne y failu re Verdin y Medic al Group calcu lates estim ated Glome rular Filtr ation Rate (eGFR ) using the Chron ic Kidne y Disea se Epide miolo gy Colla borat ion (CKD- EPI) Equat ion (Inke r et. al 2020) as recom mari d by the Gene Casas kevintez . eGFR is based on age, serum creat inine , and sex. CKD-E PI does not calcu late eGFR by race, does not apply to child jose antonio (age <18 years ), and shoul d not be used in pregn sintia. Not Available [address], [address], 07/15/2024 16:10:23 07/16/19 25 07/15/2024 BASIC METAB OLIC PANEL sodium 138 mmol/ L 136-14 5 Not Available [address], [address], 07/15/2024 16:10:23 07/16/19 25 07/15/2024 BASIC METAB OLIC PANEL potassium 4.7 mmol/ L 3.5-5. 1 Not Available [address], [address], 07/15/2024 16:10:23 07/16/19 25 07/15/2024 BASIC METAB OLIC PANEL chloride 99 mmol/ L 96-107 Not Available [address], [address], 07/15/2024 16:10:23 07/16/19 25 07/15/2024 BASIC METAB OLIC PANEL anion gap 9.8 5.0-15 .0 Not Available [address], [address], 07/15/2024 16:10:23 07/16/19 25 07/15/2024 BASIC METAB OLIC PANEL CO2 29 mmol/ L 21-32 Not Available [address], [address], 07/15/2024 16:10:23 07/16/19 25 07/15/2024 BASIC METAB OLIC PANEL calcium 10.5 mg/dL 8.5-10 .3 high Not Available [address], [address], 07/15/2024 16:10:23 07/16/19 25 07/15/2024 C-SOSA CTIVE PROTE IN (RCRP ) C-reactive protein (rcrp) 51.3 mg/dL 0.5-9. 0 high Not Available [facility] [address] [facility], [place], [address], 07/15/2024 16:10:24 07/04/19 25 07/03/2024 XR, chest CLINIC AL HISTOR Y: Cough. TECHNI QUE: Fronta l view and latera l view of the chest obtain ed. COMPAR YUNIER: 2016 FINDIN GS: The heart is normal in size and config uratio n.Ther e is no hilar or medias tinal enlarg ement. There is no focal lung consol idatio n or infilt rate. The bony thorax is intact . IMPRES EARNESTINE: No acute diseas e. Readin g Physic an: Lydia Mike ms [facility] (Imaging) [address] [place], [address], 07/09/2024 12:28:48 07/16/19 25 07/15/2024 XR, chest CLINIC AL HISTOR Y: Cough. TECHNI QUE: Fronta l view and latera l view of the chest obtain ed. COMPAR YUNIER: 025 FINDIN GS: The heart is normal in size and config uratio n.Ther e is no hilar or medias tinal enlarg ement. There is no focal lung consol idatio n or infilt rate. The bony thorax is intact . IMPRES EARNESTINE: No acute diseas e. Xavierin rusty Physic an: Franck Grover [facility] (Imaging) [address] [place], [address], 07/16/2024 11:11:26 07/22/19 25 07/17/2024 CT, chest , w/o contr ast No observ ation record ed. [facility] [address] [place], [address], 07/22/2024 09:20:11 Result Notes None recorded. 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 90915110 Active 2022 Kristine Dugan LPN null, [facility] 3 16:30:07 Gastric polyp 32981200 Active 2023 hyperpla stic polyp with surface ulcerati on KARINA ROBLEDO [address] [place] [address], [phone] , [facility] 4 14:15:04 Divertic ulosis of colon 775190060 Active 2023 severe; sigmoid colon, descendi ng colon, splenic flexure KARINA ROBLEDO [address] [place] [address], [address] , [facility] 4 09:34:10 Internal hemorrho ids 97759757 Active 2023 non-blee ding KARINA ROBLEDO [address] [place] [address], [address] , [facility] 4 09:34:25 Polyneur opathy 52421520 Active 2023 started approx 2013 Natividad Taylor MD [address] [place] [address], [phone] , [facility] 4 13:58:31 Type 2 diabetes mellitus 36983731 Active 2023 Dx around 2006-8; diet controll ed, no complica tions Natividad Taylor MD [address] [place] [address], [address] , [facility] 4 14:06:29 Mixed hyperlip idemia 857277637 Active 2001 Not Available [facility] 2 11:50:35 Colitis, enteriti s and gastroen teritis presumed infectio us 047796340 Completed 200611/14/2012 Not Available [facility] 3 03:05:57 Essentia l hyperten earnestine 33355627 Completed 199902/03/2009 Not Available [facility] 3 03:05:57 Gastroes ophageal reflux disease 391105784 Completed 200512/02/2012 Not Available [facility] 3 03:05:57 Precordi al pain 09941200 Completed 200511/14/2012 Not Available [facility] 3 03:05:57 Migraine without aura 07405766 Completed 200012/02/2012 Not Available [facility] 3 03:05:57 Osteoart hritis of knee 017452915 Completed 200111/14/2012 Not Available [facility] 3 03:05:57 Increase d frequenc y of urinatio n 361051194 Completed 200411/14/2012 Not Available [facility] 3 03:05:57 Female stress incontin ence 14540183 Completed 200512/02/2012 Not Available [facility] 3 03:05:57 Benign essentia l hyperten earnestine 6193265 Active 2001 Not Available [facility] 2 11:50:35 Atrial fibrilla tion 99589628 Completed 200212/18/2012 MIKE Hernandez [address] [place] [address], [address] , [facility] 3 17:44:02 Allergic rhinitis 63283953 Completed 200612/02/2012 Not Available [facility] 3 03:05:57 Dizzines s 129858620 Completed 200004/11/2012 Not Available [facility] 3 03:05:57 Localize d, primary osteoart hritis 976378793 Completed 200111/14/2012 Not Available [facility] 3 03:05:57 Localize d, primary osteoart hritis of the pelvic region and thigh 548118886 Completed 200211/14/2012 Not Available [facility] 3 03:05:57 Joint pain 73668301 Completed 199902/03/2009 Not Available [facility] 3 03:05:57 Knee pain Completed 200104/11/2012 Not Available [facility] 3 03:05:57 Verruca vulgaris 66189625 Completed 200002/03/2009 Not Available [facility] 3 03:05:57 Allergic rhinitis caused by pollen 08411128 Completed 200004/11/2012 Not Available [facility] 3 03:05:57 Acute maxillar y sinusiti s 22072086 Completed 200002/03/2009 Not Available [facility] 3 03:05:57 Generali zed abdomina l pain 448997774 Completed 200511/14/2012 Not Available [facility] 3 03:05:57 Elevated blood-pr essure reading without diagnosi s of hyperten earnestine 143883244 Completed 200102/03/2009 Not Available [facility] 3 03:05:57 Hyperlip idemia 27593456 Completed 200611/14/2012 Not Available [facility] 3 03:05:57 Acne 44590529 Completed 200002/03/2009 Not Available [facility] 3 03:05:57 Degenera tive joint disease involvin g multiple joints 019512980 Completed 200312/02/2012 Not Available [facility] 3 03:05:57 Ganglion and cyst of synovium , tendon and bursa Completed 12/02/2012 Not Available [facility] 3 03:05:57 Disorder of upper respirat ory system 431447357 Completed 200004/11/2012 Not Available [facility] 3 03:05:57 Hemorrho ids 23639633 Completed 200812/02/2012 Not Available [facility] 3 03:05:57 Acquired hypothyr oidism 145346489 Completed 04/16/2009 Not Available [facility] 3 03:05:57 Tricuspi d valve disorder , non-rheu matic 553041310 Completed 200212/02/2012 Not Available [facility] 3 03:05:57 Excessiv e thirst 07751147 Completed 200511/14/2012 Not Available [facility] 3 03:05:57 Cough 00803724 Completed 12/02/2012 Not Available [facility] 3 03:05:57 Cough 68409326 Completed 200102/03/2009 Not Available [facility] 3 03:05:57 Pulmonar y valve disorder 57290698 Active 2002 Not Available [facility] 2 11:50:35 Viral disease 55311838 Completed 200002/03/2009 Not Available [facility] 3 03:05:57 Tendinit is 33059734 Completed 200702/03/2009 Not Available [facility] 3 03:05:57 Rosacea 753030286 Completed 200612/02/2012 Not Available [facility] 3 03:05:57 Pure hypercho lesterol emia 473351239 Completed 200602/03/2009 Not Available [facility] 3 03:05:57 Finding by method 812861090 Completed 200011/14/2012 Not Available [facility] 3 03:05:57 Abdomina l pain 47818920 Completed 200702/03/2009 Not Available [facility] 3 03:05:57 Common cold 32995886 Completed 200002/03/2009 Not Available [facility] 3 03:05:57 Acute frontal sinusiti s 08020281 Completed 200111/14/2012 Not Available [facility] 3 03:05:57 Hand joint pain 816131313 Completed 200302/03/2009 Not Available [facility] 3 03:05:57 Benign neoplasm of large intestin e 92197107 Active 2003 Not Available [facility] 2 11:50:35 Herpes zoster 8005415 Completed 200303/26/2013 Not Available [facility] 3 02:02:57 Paronych ia of finger 431696585 Completed 200102/03/2009 Not Available [facility] 3 03:05:57 Disorder of lung 30055285 Completed 200511/14/2012 Not Available [facility] 3 03:05:57 Menopaus al symptom 91657146 Completed 200004/11/2012 Not Available [facility] 3 03:05:57 Conjunct ivitis 1282152 Completed 02/03/2009 Not Available [facility] 3 03:05:57 Migraine 23488230 Completed 200002/03/2009 Not Available [facility] 3 03:05:57 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 Procedures Surgical History Date Name Laterality Status Provider Name and Address Organization Details Recorded Time 07/19/19 25 Nebulizer Tx completed ALDAIR GILES PA-C [address] [place], [address], [facility] 07/18/2024 12:42:38 07/16/19 25 Nebulizer Tx completed ALDAIR GILES PA-C [address] [place], [address], [facility] 07/15/2024 10:08:28 04/17/20 24 Medicare Wellness Visit completed Kirsten Brito [facility] 04/17/2024 09:19:19 03/01/20 23 Medicare Wellness Visit completed Viki Valenzuela MA [facility] 03/01/2023 11:15:24 03/01/20 23 Cardiovascular disease risk reduction counseling completed Viki Valenzuela [facility] 03/01/2023 11:15:35 03/21/20 22 Medicare Wellness Visit completed Lico Dsouza [facility] 03/21/2022 07:53:50 03/21/20 22 Alcohol use screening completed [facility] 03/21/2022 07:53:50 03/21/20 22 Cardiovascular disease [facility] 07:53:50 02/09/20 21 Medicare Wellness Visit completed Keren Corbin MA [facility] 02/08/2021 11:35:43 02/09/20 21 Alcohol use screening completed Keren Corbin [facility] 02/08/2021 11:35:43 02/09/20 21 Cardiovascular disease risk reduction counseling completed Keren Corbin [facility] 02/08/2021 11:35:43 01/06/20 20 Medicare Wellness Visit completed Viki Valenzuela MA [facility] 01/06/2020 09:31:23 01/06/20 20 prevention-cardiov ascular risk reduction counseling completed Viki Valenzuela [facility] 01/06/2020 09:31:23 01/06/20 20 prevention-annual alcohol misuse screening completed Viki Valenzuela [facility] 01/06/2020 09:31:23 08/07/19 19 Medicare Wellness Visit completed Alex Wilson [facility] 08/06/2018 08:54:47 08/07/19 19 POC Strep Testing completed Alex Wilson [facility] 08/06/2018 09:48:45 05/25/19 19 POC Flu Testing completed Camille Clark [facility] 05/25/2018 10:05:14 04/01/20 18 POC Strep Testing completed Janell Caldwell [facility] 04/01/2018 10:10:22 08/09/19 18 Medicare Wellness Visit completed Viki Valenzuela [facility] 08/08/2017 08:56:54 03/28/20 17 Nebulizer Tx completed Nina Ruiz MD [address] [place] [address], [phone], [facility] 03/28/2017 13:13:28 08/10/19 17 Medicare Wellness Visit completed Chantale Mora LPN [facility] 08/09/2016 11:57:45 08/04/19 16 Medicare Wellness Visit completed Chantale Mora LPN [facility] 08/04/2015 10:49:50 08/01/19 15 Medicare Wellness Visit completed Shanice Machado [facility] 07/31/2014 09:02:11 05/07/19 06 Bladder Surgery completed Not Available [facility] 03/23/2011 06:06:16 11/02/19 04 completed Not Available [facility] 03/23/2011 06:05:52 05/07/18 85 Total Hysterectomy completed KARINA Anderson [address] [place] [address], [address], [facility] 05/30/2011 10:06:48 05/07/18 74 Tonsillectomy completed Not Available [facility] 03/23/2011 06:06:16 Knee Replacement completed Not Available [facility] 03/23/2011 06:06:16 Imaging Results Imaging Date Name Status LastModified by Organiz ation Details LastModified Time 07/03/2024 XR, chest completed [address] (Imaging) [address] [place], [address], 07/09/2024 12:28:48 07/15/2024 XR, chest completed [facility] (Imaging) [address] [place], [address], 07/16/2024 11:11:26 07/17/2024 CT, chest, w/o contrast completed [facility] [address] [place], [address], 07/22/2024 09:20:11 Procedure Notes None recorded. Medical Equipment None Reported. Allergies Allergen ID Allergen Name Allergen Category Reaction Reaction Severity Criticality Documentation Date Start Date Code Code System Note Provider Name and Address Organization Details Recorded Time [id number] tetanus and diphtheri a toxoids Not available Not available Not available Not available 03/03/2019 98889 [facility]K [facility] 09:15:15 930474 tramadol medicatio n vomiting Not available Not available 01/06/2020 22833 RxNorm [facility] 0 09:36:04 360159 codeine medicatio n photosens itivity Not available Not available 01/06/2020 2670 RxNorm SRINIVAS Dangelo [facility] 0 09:36:25 382526 banana extract food,medi cation vomiting Not available Not available 09/13/2021 55706 9 RxNorm Ophelia SRINIVAS Whipple [facility] 2 08:29:18 46556 amoxicill in medicatio n itching Not available Not available 04/04/20102009 723 RxNorm and red palms Not Available [facility] 1 06:05:41 7126 Augmentin medicatio n nausea vomiting Not available Not available Not available 08/01/2008 15805 2 RxNorm Not Available [facility] 1 06:05:20 7127 Bactrim medicatio n nausea vomiting Not available Not available Not available 08/01/2008 12321 9 RxNorm Not Available [facility] 1 06:05:20 7128 Maxidex medicatio n nausea vomiting Not available Not available Not available 08/01/2008 08684 5 RxNorm Not Available [facility] 1 06:05:20 7129 Imitrex medicatio n other severe Not available 08/01/2008 00661 3 RxNorm throa t closi ng/ti nglin g left arm Not Available [facility] 1 06:05:20 Medications Name Sig Start Date Stop Date Status Note LastModified by Organization Details LastModified Time doxycycli ne hyclate 100 mg capsule TAKE 1 CAPSULE BY MOUTH TWICE A DAY FOR 7 DAYS 07/18 completed Not Available Not Available Not Available atorvasta tin 20 mg tablet Take [...] HOUR PRIOR TO DENTAL PROCEDUR E DIRECTED 2024 active Not Available Not Available Not Avai lable Anusol-HC 2.5 % rectal cream with applicato r Insert 1 applicat orful twice a day by rectal route. 2011 active Not Available Not Available Not Avai lable cefpodoxi me 200 mg tablet TAKE 1 TABLET BY MOUTH EVERY 12 HOURS FOR 7 DAYS 07/18 completed Not Available Not Available Not Available azithromy donny 250 mg tablet TAKE 2 [...] 1 TABLET BY MOUTH ONCE A DAY active Not Available Not Available No t Available hydrocodo ne 5 mg-acetam inophen 325 mg tablet 01/05 completed Not Available Not Available Not Available FreeStyle Lancets 28 gauge 08/17 completed Not Available Not Available Not Available prednison e 20 mg tablet TAKE 2 TABLETS BY MOUTH EVERY DAY FOR 5 DAYS active Not Available Not Available No t Available Zomig 2.5 mg tablet Take 1 [...] layed release TAKE 2 TABLETS BY MOUTH TWO TIMES A DAY (CHANGE IN DOSE) 2024 active Not Available Not Available Not Avai lable levothyro xine 100 mcg tablet TAKE 1 TABLET BY MOUTH ONCE A DAY 02/10 completed changed to 88mcg 11/16/23 LL Not Available Not Available Not Available levothyro xine 88 mcg tablet Take 1 tablet every day by oral route for 30 days. active Not Available Not Available No t Available lorazepam 0.5 mg tablet 04/16 completed [...] 3 times a day by oral route as needed for 7 days. active Not Available Not Available No t Available doxycycli ne monohydra te 100 mg capsule TAKE 1 CAPSULE BY MOUTH TWICE A DAY FOR 5 DAYS 03/01 completed Not Available Not Available Not Available cephalexi n 500 mg capsule Take 1 capsule every 6 hours by oral route for 5 days. 07/03 completed Not Available Not Available Not Available oseltamiv ir 75 mg capsule TAKE [...] Available lisinopri l 30 mg tablet TAKE 2 tab po BID 2011 active Not Available [...] Not Available Not Available No t Available isomethep tene-dich loralphen -acetamin ophen 65 [...] BY MOUTH THREE TIMES A DAY NEEDED 2024 active Not Available Not Available Not Avai lable codeine 10 mg-guaife nesin 100 mg/5 mL oral liquid TAKE 10 ML EVERY DAY BY ORAL ROUTE AT BEDTIME FOR 7 DAYS. active Not Available Not Available No t Available desonide 0.05 % lotion active Not Available Not Available Not Available hydrochlo rothiazid e 25 mg tablet TAKE 1 TABLET BY MOUTH EVERY DAY active Not Available Not Available No t Available metoprolo l succinate ER 25 mg tablet,ex [...] completed Not Available Not Available Not Available albuterol sulfate HFA 90 mcg/actua tion aerosol inhaler INHALE 2 PUFFS BY MOUTH EVERY 4-6 HOURS NEEDED 2024 active Not Available Not Available Not Avai lable Tessalon 200 mg capsule Take 1 capsule [...] % eye drops in a dropperet te 04/13 /2023 completed Not Available Not Available Not Available [...] active Not Available Not Available Not Available Golytely [...] tablet every day by oral route. active Not Available Not Available No t Available Gelnique 10 % (100 mg/gram) transderm al gel packet 02/04 completed Not Available Not Available Not Available Colcrys 0.6 mg tablet 04/01 completed Not Available Not Available Not Available Myrbetriq 25 mg tablet,ex tended release 01/29 completed Not Available Not Available Not Available Myrbetriq 50 mg tablet,ex tended release 07/27 completed Not Available Not Available Not Available Wixela Inhub 100 mcg-50 mcg/dose powder for inhalatio n TAKE 1 PUFF BY MOUTH TWICE A DAY FOR 14 DAYS 2024 active Not Available Not Available Not Avai lable Fluad 65yr up(PF)45 mcg(15 mcgx3)/0. 5 mL [...] Not Available Vitals Date Recorded Body height Provider Name an d Address Organization Details Last Updated DateTime 07/07/2024 166.37 cm Dali Foley [facility] 07/07/2024 14:17:13 Date Recorded Body height Heart rate Oxygen saturation Oxygen saturation in Arterial blood by Pulse oximetry Systolic blood pressure Diastolic blood pressure Provider Name and Address Organization Details Last Updated DateTime 5 166.37 cm 80 /min 98 % 98 % 110 mm[Hg] 70 mm[Hg] Keren Smith MA [facility] 5 09:34:07 Date Recorded Body height Body temperature Heart rate Systolic blood pressure Diastolic blood pressure Provider Name and Address Organization Details Last Updated DateTime 07/15/2024 166.37 cm 98.3 [degF] 62 /min 112 mm[Hg] 72 mm[Hg] Brandyn Urena MA [facility] 5 09:38:04 Date Recorded Body height Oxygen saturation Oxygen saturation in Arterial blood by Pulse oximetry Heart rate Systolic blood pressure Diastolic blood pressure Provider Name and Address Organization Details Last Updated DateTime 5 166.37 cm 97 % 97 % 77 /min 142 mm[Hg] 72 mm[Hg] Lynnette Rob, [facility] 5 09:31:04 Date Recorded Body height Oxygen saturation Oxygen saturation in Arterial blood by Pulse oximetry Heart rate Body mass index (BMI) Body weight Systolic blood pressure Diastolic blood pressure Provider Name and Address Organization Details Last Updated DateTime 5 166.37 cm 95 % 95 % 66 /min 30.6 kg/m2 68785.7 7 g 130 mm[Hg] 64 mm[Hg] Kirsten Brito [facility] 5 08:06:21 Social History Question Answer Notes LastModified by [...] Or The Highest Degree You Have Received? [id number] Information not available 02/08/2021 How Many Days [...] And In Chart Yes Stew Gerber, . [phone] [email or web address] Information not available 08/09/2018 CSRP - Stimulants No Information not available 12/03/2014 Marital Status Information not available 03/23/2011 Mosquito Repellent Used Routinely Yes [email or web address] Information not available 08/06/2018 What Was The Date Of Your Most Recent Tobacco Screening? 07/08/2024 [email or web address] Information not available 07/08/2024 How Many Children Do You Have? 2 [...] Medical History Condition Response Atrial Fibrillation Y Osteoarthritis Y Hypothyroid Y rosacea Y RENAL / GENITOURINARY Y Diverticulosis Y Hyperlipidemia Y Allergic Rhinitis Y Diabetes Type II GERD Y Migraine Headaches Y Skin Cancer Y Hypertension Y Gynecological History Statement/Question Response Menses Monthly N Obstetrics History GPAL:G 0 P 0 0 0 0 Immunizations Vaccine Type Date Status Note Provider Nam e and Address Organization Details Recorded Time zoster live 1 completed Not Available [facility] 05/24/2019 02:28:46 influenza, unspecified formulation 4 completed Not Available [facility] 03/01/2022 13:18:28 influenza, unspecified formulation 4 completed Not Available [facility] 03/01/2022 13:18:28 pneumococcal polysaccharide PPV23 2 completed Not Available [facility] 05/24/2019 02:14:32 Novel [id number] 9 completed Not Available [facility] 05/24/2019 02:38:45 Influenza, split virus, quadrivalent, PF 3 completed Not Available [facility] 05/24/2019 02:25:03 Influenza, split virus, trivalent, preservative 2 completed Not Available [facility] 03/01/2022 13:18:29 Td(adult) unspecified formulation 9 completed Not Available [facility] 03/01/2022 13:18:28 Pneumococcal conjugate PCV 13 6 completed Not Available [facility] 05/24/2019 02:31:08 Influenza, high-dose, trivalent, PF 7 completed Not Available [facility] 05/24/2019 02:27:06 Influenza, high-dose, trivalent, PF 5 completed Not Available [facility] 03/01/2022 13:18:28 pneumococcal polysaccharide PPV23 8 completed Not Available [facility] 05/24/2019 02:27:43 Influenza, high-dose, trivalent, PF 8 completed Not Available [facility] 05/24/2019 02:23:03 Influenza, split virus, quadrivalent, preservative 6 completed Not Available [facility] 03/01/2022 13:18:28 Influenza, split virus, quadrivalent, preservative 9 completed Not Available [facility] 03/01/2022 13:18:28 Influenza, high-dose, quadrivalent, PF 0 completed Not Available [facility] 03/01/2022 13:18:28 COVID-19, mRNA, LNP-S, PF, 30 mcg/0.3 mL dose 1 completed Not Available [facility] 03/01/2022 13:18:28 COVID-19, mRNA, LNP-S, PF, 30 mcg/0.3 mL dose 1 completed Not Available [facility] 03/01/2022 13:18:28 Influenza, high-dose, quadrivalent, PF 2 completed WILLY Oquendo, [facility] 02/13/2022 08:34:00 zoster recombinant 1 completed Not Available [facility] 03/01/2022 13:18:28 zoster recombinant 1 completed Not Available [facility] 03/01/2022 13:18:28 COVID-19, mRNA, LNP-S, PF, 30 mcg/0.3 mL dose 1 completed Not Available [facility] 03/01/2022 13:18:28 Influenza, high-dose, trivalent, PF 4 completed Natividad Taylor MD [address] [place] [address], [id number] 02/11/2024 11:02:14 Influenza, split virus, quadrivalent, preservative 1 completed Not Available [facility] 03/01/2022 13:18:28 COVID-19, mRNA, LNP-S, PF, 30 mcg/0.3 mL dose 2 completed Not Available [facility] 03/01/2022 13:18:28 Influenza, high-dose, quadrivalent, PF 3 completed SRINIVAS Ramesh [facility] 03/01/2023 11:22:34 COVID-19, mRNA, LNP-S, PF, 30 mcg/0.3 mL dose 3 completed SRINIVAS Ramesh [facility] 03/01/2023 11:22:53 Past Encounters Encounter ID Performer Location Encounter Start Date Encounter Closed Date Diagnosis/Indication Diagnosis SNOMED-CT Code Diagnosis ICD10 Code Diagnosis Note [id number] Radiology , [address] [address] 03/15/2000 15:00:00 05/27/2008 02:02:29 [id number] SALONI [facility], [address]ICE [address] [place] [address] 05/16/2000 11:45:00 05/27/2008 02:02:29 [id number] [facility], [address]ICE [address] [place] [address] 06/05/2000 15:30:00 05/27/2008 02:02:29 [id number] FP, [facility], OFFICE [address] [place] [id number] 07/02/2000 10:00:00 05/27/2008 02:02:29 [id number] Radiology , [facility] [address] [place] [address] 07/02/2000 10:15:00 05/27/2008 02:02:29 [id number] FP, [facility], OFFICE [address] [place] [address] 07/11/2000 15:00:00 05/27/2008 02:02:29 [id number] FP, [facility], OFFICE [address] [facility] [place] [address] 08/07/2000 16:45:00 05/27/2008 02:02:29 [id number] FP, [facility], OFFICE [address] [place] [address] 09/21/2000 11:00:00 05/27/2008 02:02:29 [id number] FP, [facility], [address] [place] [address] 09/26/2000 10:45:00 05/27/2008 02:02:29 [id number] Radiology , [facility] [address] [place] [address] 10/03/2000 13:30:00 05/27/2008 02:02:29 [id number] FP, [facility], [address] [place] [address] 10/29/2000 10:00:00 05/27/2008 02:02:29 [id number] FP, [facility], [address] [place] [address] 03/23/2000 15:15:00 05/27/2008 02:02:29 [id number] FP, [facility], [address] [place] [address] 12/04/2000 14:00:00 05/27/2008 02:02:29 [id number] FP, [facility], [address] [place] [address] 10/24/2001 14:26:58 05/27/2008 02:02:29 [id number] FP, [facility], [address] [place] [address] 11/22/2001 10:51:47 05/27/2008 02:02:29 [id number] FP, [facility], OFFICE [address] [place] [id number] 01/10/2002 10:02:23 05/27/2008 02:02:29 [id number] LAB - [facility] [address] [place] [id number] 01/10/2002 00:00:00 05/27/2008 02:02:29 [id number] Radiology , [facility] [address] [place] [id number] 01/11/2002 09:46:53 05/27/2008 02:02:29 [id number] [facility], [address]ICE [address] [place] [address] 02/05/2002 16:14:32 05/27/2008 02:02:29 [id number] LAB - [facility] [address] [place] [address] 03/17/2002 16:25:31 05/27/2008 02:02:29 [id number] [facility], OFFICE [address] [place] [address] 03/17/2002 15:46:16 05/27/2008 02:02:29 [id number] LAB - [address] [address] 03/19/2002 10:14:52 05/27/2008 02:02:29 [id number] [facility], [address] [place] [address] 04/09/2002 13:31:56 05/27/2008 02:02:29 [id number] [facility], OFF[address] [place] [address] 06/30/2002 10:01:08 05/27/2008 02:02:29 [id number] [facility], [address] [place] [address] 07/09/2002 09:34:05 05/27/2008 02:02:29 [id number] , [facility], [address] [place] [address] 08/07/2002 10:14:41 05/27/2008 02:02:29 [id number] , [facility], [address] [place] [address] 01/30/2003 15:38:16 02/02/2003 14:46:28 [id number] [facility], OFF[address] [place] [address] 06/01/2003 16:24:05 06/02/2003 07:24:23 [id number] [facility], OFF[address] [place] [address] 09/04/2003 13:03:29 09/04/2003 17:32:02 [id number] SALONI [facility], OFFICE [address] [place] [address] 09/09/2003 15:35:08 09/10/2003 08:46:56 [id number] [facility], OFFICE [address] [place] [address] 10/08/2003 14:41:08 10/09/2003 08:50:38 [id number] [facility] [address] [place] [address] 11/02/2003 09:37:46 11/02/2003 17:26:05 [id number] [facility] - [facility] [address] [place] [address] 01/12/2004 11:12:23 01/12/2004 11:13:34 [id number] SALONI [facility], OFFICE [address] [place] [address] 03/22/2004 09:15:50 03/22/2004 16:19:11 [id number] SALONI [facility], OFFICE [address] [place] [address] 04/14/2004 15:22:15 04/15/2004 09:02:49 [id number] SALONI [facility], OFFICE [address] [place] [address] 05/04/2004 15:30:49 05/04/2004 15:30:54 [id number] SALONI [facility], OFFICE [address] [place] [address] 01/13/2005 10:55:02 01/14/2005 10:47:44 [id number] SALONI [facility], OFFICE [address] [place] [address] 01/24/2005 10:46:04 05/27/2008 02:02:29 [id number] SALONI [facility], OFFICE [address] [place] [address] 08/09/2005 14:12:44 08/10/2005 08:51:46 [id number] SALONI [facility], OFFICE [address] [place] [address] 09/21/2005 14:42:44 05/27/2008 02:02:29 [id number] FP, [facility], OFF[address], [place] [address] 10/16/2005 10:27:20 05/27/2008 02:02:29 [id number] FP, [facility], OFF[address], [place] [address] 01/04/2006 16:09:32 01/05/2006 08:20:05 [id number] FP, [facility], OFF[address], [place] [address] 03/12/2006 08:27:30 03/12/2006 15:19:16 [id number] FP, [facility], OFF[address], [place] [address] 09/27/2006 08:27:17 09/27/2006 10:51:31 [id number] FP, [facility], OFF[address], [place] [address] 02/25/2007 07:56:42 02/28/2007 09:51:01 [id number] FP, [facility], OFF[address], [place] [address] 04/19/2007 09:41:59 04/25/2007 09:41:16 [id number] FP, [facility], OFF[address], [place] [address] 06/04/2007 11:28:54 05/27/2008 02:02:29 [id number] FP, [facility], OFF[address], [place] [address] 07/04/2007 08:24:37 05/27/2008 02:02:29 [id number] FP, [facility], OFF[address], [place] [address] 01/13/2008 08:23:52 05/27/2008 02:02:29 [id number] FP, [facility], OFF[address], [place] [address] 03/19/2008 07:50:31 05/27/2008 02:02:29 [id number] FP, [facility], OFF[address], [place] [address] 04/20/2008 09:40:57 05/27/2008 02:02:29 [id number] FP, [facility], OFF[address], [place] [address] 08/01/2008 09:28:36 08/05/2008 12:14:25 [id number] FP, [facility], OFFICE [address] [place] [address] 10/18/2008 10:31:18 10/22/2008 10:57:13 [id number] FP, [facility], OFFICE [address] [place] [address] 04/16/2009 09:10:40 04/19/2009 14:44:47 [id number] FP, [facility], OFFICE [address] [place] [address] 05/04/2009 08:15:50 05/04/2009 16:29:25 [id number] FP, [facility], OFFICE [address] [place] [address] 12/24/2009 09:55:07 12/24/2009 11:01:11 [id number] FP, [facility], [address] [place] [address] 04/28/2010 10:54:30 05/11/2010 14:53:42 [id number] FP, [facility], [address] [place] [address] 10/04/2010 15:31:04 10/06/2010 09:16:18 [id number] Shanice Machado MA FP, [facility], [address] [place] [address] 05/30/2011 08:49:55 05/30/2011 10:43:23 [id number] FP, [facility], [address] [place] [address] 07/07/2011 07:44:55 07/07/2011 08:27:01 [id number] FP, [facility], [address] [place] [address] 08/28/2011 07:49:20 08/29/2011 10:49:51 [id number] FP, [facility], [address] [place] [address] 10/30/2011 12:03:51 10/30/2011 12:52:47 [id number] FP, [facility], [address] [place] [address] 12/28/2011 07:47:06 12/28/2011 12:00:35 [id number] Radiology , [facility] [address] [place] [address] 12/28/2011 08:34:08 12/28/2011 09:15:53 [id number] MIKE Hernandez , [facility], [address] [place] [address] 02/07/2012 07:19:15 02/07/2012 07:58:48 [id number] Roni Park MA , [facility], [address] [place] [address] 03/26/2012 07:25:44 03/26/2012 08:16:55 [id number] MIKE Hernandez , [facility], [address] [place] [address] 04/09/2012 07:30:06 04/09/2012 08:31:09 [id number] Gopal Proctor MD Radiology , [facility] [address] [place] [address] 04/09/2012 08:06:05 04/10/2012 08:59:10 [id number] Shanice Machado MA , [facility], [address] [place] [address] 06/04/2012 08:17:26 06/04/2012 09:34:27 [id number] Roni Park MA , [facility], [address] [place] [address] 08/18/2012 08:49:42 08/19/2012 12:15:45 [id number] [facility], OFFICE [address] [place] [address] 12/18/2012 08:37:11 12/19/2012 12:02:29 Pre-surgery evaluation [id number] 67 yo F is seen for preop evalaution , medical HX :Hypothyro idism-stab le, HTN-contro lled, Hyperlipid emia-trigl ycerides remain out of range-pt. is @ low risk for this moderately risky surgery. Cleared for surgery at this time. Hammer toe [id number] Alyssa edued for surgical repair Blood gluc ose outside reference range [id number] Adele Andersen , [facility], [address] [place] [address] 03/11/2013 07:21:00 03/14/2013 11:40:45 Ganglion of hand 410529773 L index finger, will refer to Dr. Raay for further evalaution & treatment . Influenza vaccine needed [id number] Shanice Machado MA , [facility], [address] [place] [address] 07/23/2013 13:23:28 07/24/2013 15:17:50 Sinusitis 94254901 [id number] Shanice Machado MA , [facility], [address] [place] [address] 07/30/2013 08:37:23 07/30/2013 13:18:07 Benign essential hypertension 8540172 Blood pressure at goal Adult heal th examination [id number] see Risk Assessment and Lifestyle Change Counseling section above 67 yo F seen for PHA, hypertensi on is stable, labs reviewed, mammogram is UTD, colonoscop y is UTD, meds reordered per pt. request, HCM needs discussed [id number] Shanice Machado MA , [facility], [address] [place] [address] 12/22/2013 08:42:35 12/22/2013 09:18:04 Sinusitis 60947462 Allergic to multiple antibiotic s. Will give Zithromax again. Possibilit y of ENT referral d/w pt, she prefers to wait and consider this in the future. [id number] MIKE Hernandez , [facility], [address] [place] [address] 04/21/2014 14:16:31 04/21/2014 15:09:18 Sinusitis 13766800 Questionab le, will treat w/ Z-vee, .if symptoms do not improve within the next 2-3 days return to office for further evaluation Lightheadedness [id number] EKG done, reassured. if symptoms persist return to office for evaluation . Patient agrees with this plan. [id number] Adele Andersen , [facility], [address] [place] [address] 04/28/2014 07:24:16 04/28/2014 08:13:24 Lightheadedness 089067299 Lyme Test ordered per patient request Transient cerebral ischemia 729356830 Will refer to vascular surgery for further evaluation post recent hospitaliz ation for TIAs and a carotid ultrasound that shows 50% stenosis of the right ICA. [id number] Amalia Edwards , [facility], [address] [place] [address] 07/31/2014 08:44:39 08/03/2014 09:52:25 Benign essential hypertension 2935533 Blood pressure at goal. Continue on Lisinopril 40 mg & Metoprolol ER 50 mg as ordered Adult heal th examination 813443824 see Risk Assessment and Lifestyle Change Counseling section above 68 y o F seen for disease management PHA, labs ordered & recent labs reviewed, mammogram & colonoscop y are UTD, HCM needs discussed. Counseling [id number] Hypothyroidism 25426857 Adjust Levothyrox ine to 100 nicolas a day for 6 days, no med X1 d, recheck TSH in 6 weeks Hypertriglyceridemia 920639673 Pt. to work on diet & exercise, plan to recheck lipids in 3 m. [id number] Pasquale Lee MD , [facility], [address] [place] [address] 10/11/2014 09:41:24 10/11/2014 10:15:52 Common cold 07147798 [id number] Ngoc Dykes [facility], OFF[address] [place] [address] 12/03/2014 07:20:25 12/03/2014 08:02:55 Contusion of hip 61205896 Left hip w/ extensive bruising extending to upper L leg. Continue to use heat to affected area, watch for any increase in pain, redness or swelling. Agrees w/plan. [id number] Tania Feng , [facility], [address] [place] [address] 01/26/2015 07:20:42 01/26/2015 08:09:35 Benign essential hypertension 2868440 Blood pressure is borderline . Continue on lisinopril & metoprolol . Hyperlipidemia 26131280 Will start Crestor as ordered below. Discussed diet & exercise. Referred to nutrition. F/U in 3 months or sooner PRN. Obesity 173752140 Impaired g lucose tolerance 0412782 Hypothyroidism 53177412 Last TSH 2.63, continue on Levothyrox ine 100 mcg. [id number] MIKE Hernandez , [facility], [address] [place] [address] 04/26/2015 07:18:31 04/26/2015 08:11:41 Mixed hyperlipidemia 262393587 E78.2 Cholestero l is at goal. Pt. would like to stop the Crestor & reevalaute her Lipids in 3 m. OK to stop Crestor. Continue to work on diet and exercise as discussed Benign ess ential hypertension 4337987 I10 Blood pressure at goal Hypothyroidism 36195026 E03.9 Last TSH 2.63, continue on Levothyrox ine 100 mcg. [id number] MIKE Hernandez, [facility], [address] [place] [address] 07/01/2015 14:26:21 07/02/2015 08:47:04 Urinary tract infectious disease 63297204 N39.0 urine dipstick in office does not indicate UTI at this time, patient does have a history of interstiti al cystitis, advised to push fluids. patient to telephone urology for follow-up f/u if no improvemen t in 72 hours or for fever or back pain. [id number] MIKE Hernandez, [facility], [address] [place] [address] 08/04/2015 10:44:30 08/04/2015 11:39:45 Adult health examination 939363291 Z00.00 See Risk Assessment and Lifestyle Change Counseling section above 68 y o F seen for disease management PHA, labs ordered & recent labs reviewed, mammogram & colonoscop y are UTD, HCM needs discussed. Counseling 750113029 Z71 .9 Active or passive immunization 149605480 Z23 Benign ess ential hypertension 5355976 I10 Blood pressure at goal. Continue on Lisinopril 40 mg & Metoprolol ER 50 mg as ordered Hypothyroidism 94337834 E03.9 Adjust Levothyrox ine to 100 nicolas a day, TSH ordered Hyperlipidemia 45091473 E78.5 Pt. to work on diet & exercise, plan to recheck lipids in 3 m. [id number] MIKE Hernandez, [facility], [address] [place] [address] 02/03/2016 08:43:39 02/04/2016 11:07:07 Benign essential hypertension 1857988 I10 Blood pressure at goal. Continue on Lisinopril 40 mg & Metoprolol ER 50 mg as ordered Ulcer of mouth 27007246 K12.1 oral ulcer X 2 weeks, Chlorhexid ine ordered as written below, if no improvemen t in 1 w. RTC, may need to see oral surgeon Knee pain 80059630 M25.5 69 Bilateral knee pain, needs referral for appt. that she has already scheduled Hyperlipidemia 99987668 E78.5 At goal. Pt. to continue to work on diet & exercise, plan to recheck lipids in 3 m. [id number] Won Lopez MD , [facility], [address] [place] [address] 05/14/2016 11:29:08 05/15/2016 13:40:01 Diarrhea 20740832 R19.7 Patient with now 2-week duration of [...] contact the clinic with any worsening symptoms. [id number] MIKE Hernandez, [facility], [address] [place] [address] 08/09/2016 11:41:59 08/09/2016 12:49:14 Adult health examination 203318935 Z00.00 see Risk Assessment and Lifestyle Change Counseling section above70 y o F seen for disease management PHA, recent labs reviewed, mammogram & colonoscop y are UTD, HCM needs discussed. Counseling 694444719 Z71 .9 Gastroesop hageal reflux disease 286838537 K21.9 more s/s of GERD despite med-Pantop razole 20 mg QD, referred to GI Instability of joint 673 55897 M25.30 L thumb click [id number] MIKE Hernandez , [facility], [address] [place] [address] 01/29/2017 07:32:51 01/29/2017 08:05:26 Benign essential hypertension 8965634 I10 Blood pressure at goal. Continue on Lisinopril 40 mg & Metoprolol ER 50 mg as ordered Hyperlipidemia 47186224 E78.5 At goal. Continue on Rosuvastat in 10 mg/d..Pt. to continue to work on diet & exercise, plan to recheck lipids in 6 m. Hypothyroidism 73330181 E03.9 TSH-1.7, no med changes made at this time. [id number] SRINIVAS Briseno, [facility], [address] [place] [address] 02/26/2017 09:48:10 02/27/2017 10:37:22 Active or passive immunization 799507296 Z23 [id number] MIKE Hernandez , [facility], [address] [place] [address] 03/05/2017 07:54:18 03/06/2017 08:30:28 Common cold 47665529 J00 Cold self care measures reviewed and encouraged (fluids, steam inhalation , adequate rest). F/U if sx worsen or aren't resolving. [id number] Sylvia Vergara , [facility], [address] [place] [address] 03/28/2017 12:09:03 03/28/2017 12:59:55 Cough 23785374 R05 post viral coughsome decreased peak flowsother story normal examin office nebulizier some subjective improvemen t and in peak flows notedwill try inhaler with spacer at homesuppor tive measures belowf/u if any new sx or worse or not improved in one month [id number] MIKE Hernandez , [facility], [address] [place] [address] 08/08/2017 08:42:35 08/08/2017 09:49:33 Adult health examination 971432414 Z00.00 see Risk Assessment and Lifestyle Change Counseling section above71 y o F seen for disease management PHA, recent labs reviewed, mammogram & colonoscop y are UTD, HCM needs discussed. Counseling 969500818 Z71 .9 Depression screening 171 740621 Z13.89 depression screening tool administer ed, entered into emr, scored and discussed, time greater than 7.5 minutes Benign ess ential hypertension 4150065 I10 Blood pressure at goal Mixed hyperlipidemia 267 045374 E78.2 Cholestero l is at goal. Continue to work on diet and exercise as discussed [id number] MIKE Hernandez , [facility], [address] [place] [address] 01/30/2018 07:37:38 01/30/2018 08:30:32 Benign essential hypertension 5119908 I10 Blood pressure NOT at goal Mixed hyperlipidemia 267 386791 E78.2 Cholestero l is at goal. Continue to work on diet and exercise as discussed Hyperglycemia 66623745 R 73.9 Lancets & strips ordered per pt. request Active or passive immunization 886861347 Z23 [id number] Shanice Drake LPN , [facility], [address] [place] [address] 02/15/2018 07:40:51 02/15/2018 11:30:22 Active or passive immunization 012659884 Z23 [id number] MIKE Hernandez , [facility], [address] [place] [address] 02/27/2018 14:00:05 02/27/2018 14:36:22 Serous otitis media 98827062 H65.03 Advised to use Claritin-D . If no improvemen t in 7-10 d RTC. Agrees. [id number] KARINA Anderson , [facility], [address] [place] [address] 04/01/2018 09:42:58 04/02/2018 16:20:26 Pain in throat 595345532 R07.0 Sore throat x 4 days. Posterior oropharynx erythemato us, right sided exudate. Rapid Strep negative. Suspect viral pharyngiti s. Culture sent today. Hearing loss 79190003 H9 1.91 Ongoing fullness in ears, right ear is worse. Dx with otitis media on 02/27/2018 . Did not tolerate recommende d Claritin- d d/t s/e. Will try Loratidine 10 mg per day. Hx of chronic sinus issues. Ear exam today WNL, but patient still endorsing diminished hearing of right ear. [id number] Pasquale Lee MD , [facility], [address] [place] [address] 05/25/2018 09:37:52 05/25/2018 10:41:47 Cough 36812676 R05 Influenza 2717983 J11.1 [id number] Vicky Prieto MD , [facility], [address] [place] [address] 07/09/2018 13:25:23 07/10/2018 09:38:46 Backache 962326237 M54.9 add in tylenol 1000 mg three times a daytry heat and pay attention to whether you stiffen up.probabl e Sacroiliit is, expect resolution anotehr 2 weeks. [id number] MIKE Hernandez, [facility], [address] [place] [address] 08/06/2018 08:39:53 08/06/2018 10:04:33 Adult health examination 041281163 Z00.00 see Risk Assessment and Lifestyle Change Counseling section above72 y o F seen for disease management PHA, recent labs reviewed, mammogram & colonoscop y are UTD, HCM needs discussed. Counseling 370116463 Z71 .9 Depression screening 171 336812 Z13.89 depression screening tool administer ed, entered into emr, scored and discussed, time greater than 7.5 minutes Benign ess ential hypertension 5238574 I10 Blood pressure at goal Mixed hyperlipidemia 267 029995 E78.2 Cholestero l is at goal. Continue to work on diet and exercise as discussed Pain in throat 970618212 R07.0 Will check rapid TC & sent TC to lab as well, pt concerned about reoccurren ce of strep throat. [id number] MIKE Hernandez, [facility], [address] [place] [address] 01/13/2019 09:50:55 01/13/2019 10:37:41 Gastroesophageal reflux disease 994088208 K21.9 More s/s of GERD despite Pantoprazo le 20 mg QD. Advised pt to increase Pantoprazo le to 40mg/d (20mg bid) new rx ordered as written below. If no improvemen t by will order abdominal U/S. Plan to f/u in 2wks as scheduled. Abdominal pain 20122896 R10.9 Labs ordered as written below. Further treatment pending results. [id number] MIKE Hernandez, [facility], [address] [place] [address] 01/29/2019 07:17:07 01/29/2019 15:36:43 Benign essential hypertension 9766544 I10 Blood pressure at goal. Continue on metoprolol 50 mg/d and lisinopril 40 mg/ d. Mixed hyperlipidemia 267 465486 E78.2 Cholestero l is at goal. Continue to work on diet and exercise as discussed Gastroesop hageal reflux disease 580109226 K21.9 Improved. Continue with increase dose of pantoprazo le 20 mg twice daily. [id number] MIKE Hernandez, [facility], [address] [place] [address] 03/03/2019 09:08:45 03/03/2019 09:41:14 Dog bite 199938617 W54.0XXA Continue on Doxycyclin e & metronidaz ole as prescribed from ED. DSD applied to sm open area, watch for increased pain, swelling, fever, plan to f/u in 2 d. or sooner prn. Advised to use Tylenol as directed for pain PRN. [id number] MIKE Hernandez, [facility], [address] [place] [address] 03/05/2019 14:02:36 03/05/2019 14:54:03 Dog bite 323385186 W54.0XXA Continue on Doxycyclin e & metronidaz ole as prescribed from ED. Watch for increased pain, swelling, fever. Advised to use Tylenol as directed for pain PRN. Small bandaid applied. Follow up as needed. [id number] MIKE Hernandez, [facility], [address] [place] [address] 10/01/2019 10:22:33 10/03/2019 10:14:03 Mixed hyperlipidemia 248028429 E78.2 Cholestero l is at goal Continue on Rosuvastat in 10 mg a day Continue to work on diet and exercise as discussed Essential hypertension 99703398 I10 BP stable at home. Range 120-130/70 -80 Continue on Lisinopril 40 mg/d & Metoprolol succinate ER 50 mg/d Hypothyroidism 31863261 E03.9 TSH-1.7, no med changes made at this time. [id number] MIKE Hernandez, [facility], [address] [place] [address] 01/06/2020 09:30:53 01/07/2020 08:34:10 Adult health examination 856020136 Z00.00 see Risk Assessment and Lifestyle Change Counseling section above75 y o F seen for Virtual PHA, recent labs reviewed, mammogram & colonoscop y are UTD, recent labs reviewed & discussed, HCM needs discussed. Counseling 599231073 Z71 .9 including cardiovasc ular risk reduction counseling Depression screening 171 172493 Z13.89 depression screening tool administer ed, entered into emr, scored and discussed, time greater than 7.5 minutes Screening for alcohol abuse 093680489 Z13.39 Essential hypertension 74339594 I10 BP stable at home. Range 120-130/70 -80 Continue on Lisinopril 40 mg/d & Metoprolol succinate ER 50 mg/d Mixed hyperlipidemia 267 133035 E78.2 Cholestero l is at goal Continue to work on diet and exercise as discussed [id number] MIKE Hernandez, [facility], [address] [place] [address] 07/27/2020 08:25:46 07/28/2020 09:52:25 Essential hypertension 92368951 I10 BP stable at home. Range 116-117/78 Continue on Lisinopril 40 mg/d & Metoprolol succinate ER 50 mg/d Mixed hyperlipidemia 267 344573 E78.2 Cholestero l is at goal. Continue on Rosuvastat in 10 mg/d Continue to work on diet and exercise as discussed Hypothyroidism 58490478 E03.9 TSH-3.27, no med changes made at this time. [id number] MIKE Hernandez, [facility], [address] [place] [address] 09/09/2020 09:42:30 09/09/2020 13:14:11 Hypothyroidism 18632522 E03.9 TSH-3.03, resume taking med-Levoth yroxine 100 mcg/d- 7 d/week. Will recheck in 6 weeks. [id number] MIKE Hernandez, [facility], [address] [place] [address] 02/08/2021 11:29:43 02/08/2021 12:34:42 Adult health examination 014385635 Z00.00 see Risk Assessment and Lifestyle Change Counseling section above75 y o F seen for PHA, recent labs reviewed, mammogram and colonoscop y UTD, recent labs reviewed & discussed, HCM needs discussed. Counseling 921784597 Z71 .9 including cardiovasc ular risk reduction counseling Depression screening 171 073513 Z13.31 depression screening tool administer ed, entered into emr, scored and discussed, time greater than 7.5 minutes Screening for alcohol abuse 223071563 Z13.39 Mixed hyperlipidemia 267 613826 E78.2 Cholestero l is near goal. Triglyceri danita mildy elevated-1 53Continue to work on diet and exercise as discussed Benign ess ential hypertension 8519129 I10 BP not stable. Begin taking amlodipine 2.5mg., continue on Lisinopril 40 mg/d & Metoprolol succinate ER 50 mg/d and f/u in 1 month. [id number] MIKE Hernandez, [facility], [address] [place] [address] 03/01/2021 11:53:24 03/04/2021 15:12:41 Benign essential hypertension 7874561 I10 BP improved. Continue taking amlodipine 2.5mg/d, Lisinopril 40 mg/d & Metoprolol succinate ER 50 mg/d. Pt to f/u as needed. Return in September for disease management . Mixed hyperlipidemia 267 090562 E78.2 Cholestero l is near goal. Triglyceri danita mildy elevated-1 53Continue to work on diet and exercise as discussed Hypothyroidism 30845000 E03.9 [id number] MIKE Hernandez, [facility], [address] [place] [address] 09/13/2021 08:23:37 10/04/2021 10:38:45 Essential hypertension 94062166 I10 BP stable. Continue on Lisinopril 40 mg/d & Metoprolol succinate ER 50 mg/d Mixed hyperlipidemia 267 886232 E78.2 Cholestero l is at goal. LDL-75.6Co ntinue to work on diet and exercise as discussed Hypothyroidism 07550580 E03.9 Recheck TSH in November. [id number] WILLY Oquendo, [facility], [address] [place] [address] 02/13/2022 07:46:56 03/17/2022 10:11:05 Active or passive immunization 838699447 Z23 [id number] MIKE Hernandez , [facility], [address] [place] [address] 03/21/2022 07:57:14 03/21/2022 10:11:13 Adult health examination 281445756 Z00.00 see Risk Assessment and Lifestyle Change Counseling section above76 y o F seen for PHA, mammogram UTD, last colonoscop y was in 2017 w/ 5 y. recall, recent labs reviewed & discussed, HCM needs discussed. Counseling 041781661 Z71 .9 including cardiovasc ular risk reduction counseling Depression screening 171 222936 Z13.31 depression screening tool administer ed, entered into emr, scored and discussed, time greater than 7.5 minutes Screening for alcohol abuse 319451094 Z13.39 Essential hypertension 56042029 I10 BP elevated in office. Has white coat reaction when in office. Continue on Lisinopril 40 mg/d & Metoprolol succinate ER 50 mg/d Screening for malignant neoplasm of colon 156331424 Z12.11 [id number] Jane Briceno DO , [facility], [address] [place] [address] 08/17/2022 08:43:01 08/17/2022 09:26:53 Essential hypertension 56612778 I10 Not at goal, usually high in office. Pt will take at home later today and send in results. If needed will adjust medication s. Mixed hyperlipidemia 267 044905 E78.2 Cholestero l is at goalContin ue to work on diet and exercise as discussed Hypothyroidism 51845504 E03.9 F/u labs. Chronic ki dney disease stage 3 490707686 N18.30 F/u labs. Allergic rhinitis 662962 04 J30.9 Trial of flonase. Discussed that needs to be used daily for at least 7 days to see effect. Continue nikki. [id number] Opal De La Torre MD , [facility], [address] [place] [address] 09/04/2022 11:58:46 09/04/2022 17:15:23 Hypothyroidism 51413374 E03.9 pt advised TSH well within normal rangesx are indicative of hypothyroi d, tsh doesnt indicate that, actually on hyperthyro id endoof normal rangeno indication for dose change [id number] Jane Briceno DO , [facility], [address] [place] [address] 03/01/2023 10:53:12 03/01/2023 15:30:21 Adult health examination 048884318 Z00.00 had mammo todayPts overall health is good. Reviewed labs. Next [place] in 1 year. Depression screening 171 212113 Z13.31 depression screening tool administer ed Screening for alcohol abuse 436200679 Z13.39 Alcohol use screening tool administer ed Counseled by member of primary health care team 776865589 Z71.9 Today we discussed ways to reduce [...] recommend taking daily aspirin. Screening for disorder 637126026 Z13.89 Today we screened for, reviewed, and [...] can be used. 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 Hypothyroidism 94528208 E03.9 At goal. 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 Osteopenia 075900008 M85 .80 Edema of l ower extremity 808642742 R60.0 Pt reports mild swelling at home since starting amlodipine in 2020. Trial off amlodipine . [id number] Natividad Taylor MD , [facility], [address] [place] [address] 03/21/2023 17:42:24 03/21/2023 19:53:33 Benign essential hypertension 9895893 I10 Discontinu e metoprolol 25mg that you were taking with the metoprolol 50mg and go back to just 50mg/day. Will add diuretic. Take in morning. If increased incontinen ce please let us know. Get blood checked in 2 weeks. If BP good at home, follow-up as sched in few months. If side effects or BP not good, make appointmen t Bereavement 25442017 Z63 .4 Please let us know if we can help [id number] Natividad Taylor MD , [facility], OFFICE [address] [place] [address] 07/02/2023 12:11:28 07/02/2023 13:16:35 Abdominal pain [id number] R10.9 Will start with labs and ultrasound . Please double your pantoprazo le to 40mg twice a day and cut back on your etodolac as much as you can [id number] Natividad Taylor MD , [facility], OFFICE [address] [place] [address] 07/12/2023 09:56:57 07/12/2023 10:40:58 Mixed hyperlipidemia [id number] E78.2 Pharyngitis 323322110 J0 2.9 Uncertain cause; could try ravindra pot/saline nose spray and see if that helps (postnasal drip?) Abdominal pain 83825715 R10.9 Lets stay the course; continue the higher dose stomach pill and dietary changes. If not resolved at your follow-up, can consult GI. If changes before that (getting worse), let me know Hypercalcemia 41146824 E 83.52 Please stop your supplement s and we can recheck this in future [id number] Natividad Taylor MD , [facility], [address]ICE [address] [place] [address] 08/23/2023 08:40:42 08/23/2023 09:18:53 Abdominal pain 12897765 R10.9 Mild improvemen t but bowels still not normal. Will refer back to Dr. Perkins Allergic rhinitis 069581 04 J30.9 Benign ess ential hypertension 6488825 I10 Blood pressure still not controlled . You did not do well with increased metoprolol . You want to work on exercise and weight. Will recheck at follow-up. Reviewed kidney function tests. Controllin g blood pressure will help your kidneys as well as reduce chance of stroke/hea rt attack [id number] KARINA Anderson , [facility], OFFICE [address] [place] [address] 11/16/2023 16:50:23 11/21/2023 12:25:32 Low back pain [id number] M54.50 pt had upsomin appt with Dr Stein physiatry for injection. L SI- will consult with same [id number] Natividad Taylor MD , [facility], [address] [place] [address] 02/11/2024 10:24:39 02/11/2024 11:23:41 Active or passive immunization 574269677 Z23 Osteoarthritis 703933637 M19.90 Reviewed that choices for pain medication include meds like diclofenac , tylenol and opiates. We went over pro's and con's today. You wish to use diclofenac sparingly, perhaps with tylenol to enhance the effects. you are aware that this can irritate the kidneys. Polyneuropathy 08570476 G62.9 Unlikely from diabetes as your A1C has been close to normal x years. I recommend checking a few tests to look for other causes. High hemog lobin A1c level 971050372 R73.09 Discussed with patient that I do not have documentat ion of her dx of diabetes. She may have been well-contr olled on diet x years, but unlikely to get neuropathy from that. Will research further [id number] Natividad Taylor MD , [facility], [address]ICE [address] [place] [address] 04/17/2024 09:07:02 04/17/2024 10:22:26 Adult health examination [id number] Z00.00 Had covid booster 2023; [facility] vaccinatio ns up to date, including recent COVID-19 booster and annual flu shot.-Cont inue regular follow-up with specialist s for dermatolog y, gynecology , and ophthalmol ogy concerns.- Schedule follow-up in 6 months or sooner if needed. Depression screening 171 692138 Z13.31 depression screening tool administer ed Screening for alcohol abuse 086897809 Z13.39 Alcohol use screening tool administer ed Protein electrophoresis outside reference range 867442358 R89.8 we checked this as a potential cause for neuropathy Type 2 svetlana betes mellitus 77666835 E11.9 Acute sinusitis 37685014 J01.90 Symptoms of sinus pressure, pain, and green, bloody nasal discharge for approximat aster 10 days. Unable to use nasal rinse due to burning sensation. Currently using Flonase and Xyzal.-Pre scribe Cephalexin to treat sinus infection. Polyneuropathy 30552108 G62.9 Neuropathy No known cause identified . Recent extensive workup for potential causes of neuropathy , including blood tests for rare diseases, all returned normal.-Or ginna repeat serum protein electropho resis to confirm normal results. Genital li early sclerosus 576780316 L90.0 Lichen SclerosusM anaged with triamcinol one and vaginal estrogen.- Continue current management . Gastroesop hageal reflux disease without esophagitis 395823712 K21.9 GERDAttemp t to reduce pantoprazo le dose unsuccessf ul.-Contin ue pantoprazo le 20mg, two pills twice daily. Benign ess ential hypertension 3268694 I10 Hypertensi onBlood pressure slightly elevated at today's visit.-Con tinue current management with hydrochlor othiazide 25mg and lisinopril 40mg. Mixed hyperlipidemia 267 517927 E78.2 Hyperlipid emiaPatien t requests regular cholestero l checks for self-monit oring.-Con tinue current management with rosuvastat in 10mg. Chronic ki dney disease stage 3 556533001 N18.30 Chronic Kidney DiseaseSta ble kidney function with GFR 42.6, consistent with previous results.-C ontinue current management and monitor kidney function. [id number] Natividad Taylor MD , [facility], [address] [place] [address] 07/03/2024 14:25:38 07/03/2024 15:50:26 Cough 70283885 R05.9 Patient presents with cough.Like ly secondary to: pneumoniaD iscussed supportive measures.F ollow up if not improving or with worsening symptoms.W ill recheck Xray in future if radiology concurs with my reading [id number] Stew Matthews MD , [facility], [address] [place] [address] 07/07/2024 14:16:47 07/08/2024 09:41:30 Cough 41136915 R05.9 Headache 95373543 R51.9 [id number] ALDAIR GILES PA-C , [facility], [address] [place] [address] 07/08/2024 09:25:34 07/11/2024 12:37:50 Benign essential hypertension 4153017 I10 Stable, continue current treatment plan. Cough 17300972 R05.9 Worsening symptoms despite antibiotic treatment suggest viral etiology. Treated for pneumonia and is worsening. Still on dual antibiotic s. Will swab to rule out covid/flu. Both negative, lungs reassuring but will get labs. Discussed inhalers and codeine cough syrup (at night) for symptomati c management . Has follow up in 2 weeks and will call in the next several days if not improving. [id number] TATY AQUINO DO , [facility], [address]ICE [address] [place] [address] 07/15/2024 09:25:13 07/17/2024 11:50:54 Cough 74895273 R05.9 Persistent respirator y symptomsPe rsistent dyspnea, chest pain, and fatigue. Inhalers ineffectiv e. 5-6 days of dual antibiotic s at beginning of course also ineffectiv e. Differenti al includes lingering infection or post-infec tious inflammati on. Elevated WBC last week and elevated CRP, will repeat. RSV considered vs bacterial. Prednisone proposed to reduce inflammati on.- Order chest x-ray.- Repeat blood tests to assess WBC count and differenti al.- Prescribe oral prednisone 40 mg daily for 5 days.- Administer duoneb nebulizer treatment in office.- Evaluate x-ray results for potential antibiotic . [id number] Opal De La Torre MD , [facility], [address] [place] [address] 07/18/2024 09:23:56 07/25/2024 12:06:40 Cough 43727047 R05.9 Persistent CoughImpro vement with prednisone , likely viral etiology. CT scan ordered to rule out other issues; results pending. Prednisone causing jitterines s and diarrhea.- Complete current course of prednisone .- Administer Tessalon Perles for cough relief, up to three times daily as needed.- Administer nebulizer treatment during the visit.- Await CT scan results and follow up once available. - Follow-up appointmen t with Dr. Taylor next week.- Consider blood work next week if symptoms persist or worsen. Should get done to ensure normalizin g in the near future.- Advise to contact clinic if symptoms worsen or new symptoms develop. Leukocytosis 173096960 D 72.829 [id number] Natividad Taylor MD [facility], [address] [place] [address] 07/22/2024 07:53:01 07/23/2024 09:46:25 CT of chest abnormal [id number] 9368165 R93.89 Incidental Pancreatic FindingInc idental pancreatic finding on CT scan. Family history of pancreatic cancer noted. Reassured about commonalit y and benign nature of such findings. Further evaluation warranted but unlikely to be significan t.- Order follow-up imaging for the pancreas , preferably at [facility] location. Pneumonia 507026121 J18. 9 Atypical PneumoniaS ymptoms persisted for 21 days. Antibiotic s ineffectiv e, prednisone improved symptoms. CT showed ground-gla ss opacities, consistent with viral pneumonia. Differenti al includes COVID-19 and RSV. No longer contagious .- Repeat CT scan of the chest in October to monitor lung findings.- Continue Wixela inhaler once daily for 1-2 weeks, then discontinu e. Health Concerns Section Related Observation LastModified by Organization Detai ls LastModified Time None Recorded Concern Status LastModified by Organization Details LastModified Time None Recorded Advance Directives Directive N: Payers Encounter Date Sequence Insurance Name Policy Number Policy Ordaz Covered Member ID Ordaz Member ID Guarantor Name 07/07/2024 1 [facility] [employer] [facility] [employer] [facility] (POS) [id number] Shara Gerber [id number] Shara Gerber 07/08/2024 1 [facility] [employer] (POS) [id number] Shara Gerber [id number] Shara Gerber 07/15/2024 1 [facility] [employer] (POS) [id number] Shara Gerber [id number] Shara Gerber 07/18/2024 1 [facility] [employer] (POS) [id number] Shara Gerber [id number] Shara Gerber 07/22/2024 1 [facility] [employer] (POS) [id number] Shara Gerber [id number] Shara Gerber Notes Date Note Type Note Provider Name and Address Organization Details Recorded Time 07/08/2024 text/html pneumonia follow upHistory of Present IllnessThe patient, with a recent history of presumed pneumonia, presents with worsening symptoms despite antibiotic treatment. She reports a severe, burning cough that prevents her from taking deep breaths and has become looser over time, though she is not producing any sputum. The cough is so severe that it wakes her up at night and causes hours of coughing. She also reports significant generalized body aches, a persistent headache for the past six days, and a loss of appetite. She has completed most of her antibiotic course but has not noticed any improvement in her symptoms. She also reports new symptoms of a head cold and a foggy brain. She denies ear pain and attributes a sore throat to the persistent coughing. She also reports sinus pressure but is unsure if it is related to a sinus infection. She denies any history of asthma or COPD. She is taking tylenol for pain which is minimally helping. Unclear if she has had a fever in the past several days. 07/03/24:Pt presents for coughonset Sat 06/28 - occasional coughT 07/01 - became more frequent with chest heaviness and burning with cough - does not last between coughs, pounding KIMBALL, 100 temp, down to 99.6 with TYL.Denies SOBCovid negative today ALADIR IGLES PA-C [address] [place] [address], [phone], [facility] 07/10/2024 16:09:18 07/15/2024 text/html 07/15/2024 cough pt states headache is only active when coughing, exhausted History of Present IllnessThe patient presents with persistent cough and extreme fatigue. They report that inhalers have not improved their symptoms and they struggle to take a deep breath. Despite some minimal improvement, they are still not feeling well. They describe feeling exhausted, often falling asleep after simple tasks such as changing the bed. They also report chest discomfort that fountain when they cough or take a deep breath. They have been producing minimal sputum, mostly in the morning. They have been taking codeine, which has helped them sleep at night. In general they really don't feel better and are on day 15 of illness. 07/08/2024 pneumonia follow upHistory of Present IllnessThe patient, with a recent history of presumed pneumonia, presents with worsening symptoms despite antibiotic treatment. She reports a severe, burning cough that prevents her from taking deep breaths and has become looser over time, though she is not producing any sputum. The cough is so severe that it wakes her up at night and causes hours of coughing. She also reports significant generalized body aches, a persistent headache for the past six days, and a loss of appetite. She has completed most of her antibiotic course but has not noticed any improvement in her symptoms. She also reports new symptoms of a head cold and a foggy brain. She denies ear pain and attributes a sore throat to the persistent coughing. She also reports sinus pressure but is unsure if it is related to a sinus infection. She denies any history of asthma or COPD. She is taking tylenol for pain which is minimally helping. Unclear if she has had a fever in the past several days. 07/03/24:Pt presents for coughonset Sat 06/28 - occasional coughT 07/01 - became more frequent with chest heaviness and burning with cough - does not last between coughs, pounding KIMBALL, 100 temp, down to 99.6 with TYL.Denies SOBCovid negative today TATY AQUINO, DO [address] [facility], [place], [phone], [facility] 07/15/2024 14:15:41 07/18/2024 text/html 07/18/2024 follow up / cough -- states better than the last time she was here, but not resolved. Still w/ cough. Feeling fatigued. History of Present IllnessThe patient presents to follow up on a persistent cough and general malaise. They report feeling 'a little bit better' after starting prednisone. However, they also report feeling jittery and experiencing diarrhea as side effects of the medication. Despite these side effects, the patient appreciates the anti-inflammatory benefits of the prednisone.The patient recently underwent a CT scan yesterday, but the results are not yet available. They have been taking prednisone for four days and have one more day of the medication left. They report that their cough has improved some, allowing them to take deeper breaths than before, although they still cannot take a deep, deep breath. They deny any fever or new symptoms, and report that their congestion has improved. The patient also reports intermittent headaches and general fatigue. 07/15/2024 cough pt states headache is only active when coughing, exhausted History of Present IllnessThe patient presents with persistent cough and extreme fatigue. They report that inhalers have not improved their symptoms and they struggle to take a deep breath. Despite some minimal improvement, they are still not feeling well. They describe feeling exhausted, often falling asleep after simple tasks such as changing the bed. They also report chest discomfort that fountain when they cough or take a deep breath. They have been producing minimal sputum, mostly in the morning. They have been taking codeine, which has helped them sleep at night. In general they really don't feel better and are on day 15 of illness. 07/08/2024 pneumonia follow upHistory of Present IllnessThe patient, with a recent history of presumed pneumonia, presents with worsening symptoms despite antibiotic treatment. She reports a severe, burning cough that prevents her from taking deep breaths and has become looser over time, though she is not producing any sputum. The cough is so severe that it wakes her up at night and causes hours of coughing. She also reports significant generalized body aches, a persistent headache for the past six days, and a loss of appetite. She has completed most of her antibiotic course but has not noticed any improvement in her symptoms. She also reports new symptoms of a head cold and a foggy brain. She denies ear pain and attributes a sore throat to the persistent coughing. She also reports sinus pressure but is unsure if it is related to a sinus infection. She denies any history of asthma or COPD. She is taking tylenol for pain which is minimally helping. Unclear if she has had a fever in the past several days. 07/03/24:Pt presents for coughonset Sat 06/28 - occasional coughT 07/01 - became more frequent with chest heaviness and burning with cough - does not last between coughs, pounding KIMBALL, 100 temp, down to 99.6 with TYL.Denies SOBCovid negative today Opal De La Torre MD [address] [place] [address], [phone], [facility] 07/23/2024 12:01:20 07/22/2024 text/html 07/22/24 - f/u coughreports that she can take a deeper breath and not coughing as muchstill feeling fatigued History of Present IllnessThe patient presents with persistent respiratory symptoms and fatigue following a recent illness. She is experiencing persistent respiratory symptoms, including an improved cough and the ability to take deeper breaths, though she still has burning sensations in her chest. She is concerned about being contagious and has limited contact with her son, who has been dropping off supplies on the porch. She reports significant fatigue, stating she is exhausted and unable to perform daily activities such as laundry. She is eating better now and maintaining fluid intake. She is no longer on prednisone or antibiotics, having completed those courses. She recalls taking doxycycline as one of the antibiotics. She mentions that inhalers make her jittery and that prednisone caused significant discomfort. She had COVID in December of the previous year and never fully recovered from the cough, which she initially attributed to allergies. She also had a sinus infection in April. She has a family history of pancreatic cancer, as her sister is currently undergoing treatment for the condition. She expresses concern about incidental findings on her CT scan, particularly regarding her pancreas, due to her family history. 07/18/2024 follow up / cough -- states better than the last time she was here, but not resolved. Still w/ cough. Feeling fatigued. History of Present IllnessThe patient presents to follow up on a persistent cough and general malaise. They report feeling 'a little bit better' after starting prednisone. However, they also report feeling jittery and experiencing diarrhea as side effects of the medication. Despite these side effects, the patient appreciates the anti-inflammatory benefits of the prednisone.The patient recently underwent a CT scan yesterday, but the results are not yet available. They have been taking prednisone for four days and have one more day of the medication left. They report that their cough has improved some, allowing them to take deeper breaths than before, although they still cannot take a deep, deep breath. They deny any fever or new symptoms, and report that their congestion has improved. The patient also reports intermittent headaches and general fatigue. 07/15/2024 cough pt states headache is only active when coughing, exhausted History of Present IllnessThe patient presents with persistent cough and extreme fatigue. They report that inhalers have not improved their symptoms and they struggle to take a deep breath. Despite some minimal improvement, they are still not feeling well. They describe feeling exhausted, often falling asleep after simple tasks such as changing the bed. They also report chest discomfort that fountain when they cough or take a deep breath. They have been producing minimal sputum, mostly in the morning. They have been taking codeine, which has helped them sleep at night. In general they really don't feel better and are on day 15 of illness. 07/08/2024 pneumonia follow upHistory of Present IllnessThe patient, with a recent history of presumed pneumonia, presents with worsening symptoms despite antibiotic treatment. She reports a severe, burning cough that prevents her from taking deep breaths and has become looser over time, though she is not producing any sputum. The cough is so severe that it wakes her up at night and causes hours of coughing. She also reports significant generalized body aches, a persistent headache for the past six days, and a loss of appetite. She has completed most of her antibiotic course but has not noticed any improvement in her symptoms. She also reports new symptoms of a head cold and a foggy brain. She denies ear pain and attributes a sore throat to the persistent coughing. She also reports sinus pressure but is unsure if it is related to a sinus infection. She denies any history of asthma or COPD. She is taking tylenol for pain which is minimally helping. Unclear if she has had a fever in the past several days. 07/03/24:Pt presents for coughonset Sat 06/28 - occasional coughT 07/01 - became more frequent with chest heaviness and burning with cough - does not last between coughs, pounding KIMBALL, 100 temp, down to 99.6 with TYL.Denies SOBCovid negative today Natividad Taylor MD [address] [place] [address], [phone], [facility] 07/23/2024 07:24:45 OBGyn Episode No OBEpisode recorded.
== END 2024-08-11 12:09 | disposition home or self-care (01) ==
LOC: HO.PMC 11:35
PROVIDERS: PCP Family Medicine; Visit Provider Internal Medicine
DX: M48.062 Spinal stenosis, lumbar region with neurogenic claudication (principal)
CPT/HCPCS: 99204

== ENCOUNTER → 2024-08-11 11:34 | Outpatient (BNVA) | payer OTHER, SELFPAY | PROVIDERS: PCP Family Medicine; Visit Provider Internal Medicine | DX: M48.062 Spinal stenosis, lumbar region with neurogenic claudication (principal) | CPT/HCPCS: 99202 ==